=== PATIENT | male | born 1955 | race Caucasian/White ===

== ENCOUNTER 2018-12-07 17:24 | Inpatient (IN) ==
[2018-12-07] MEDS ORDERED: LASIX IV ONE (19:31)
[2018-12-07 19:51] LABS: BASO# 0.02 X1000 (0.0-0.2); BASO% 0.1 % (0.0-0.8); EOS# 0.05 X1000 (0.0-0.7); EOS% 0.2 % (0.0-10.0); HEMATOCRIT 30.4 % (42.0-52.0); HEMOGLOBIN 9.8 g/dL (14.0-18.0); IMM GRAN% 0.4 % (0.0-0.5); LYMPH# 1.17 X1000 (1.2-3.4); LYMPH% 4.7 % (20.5-51.1); MCHC 32.2 g/dL (33-37); MCV 96.2 FL (81-99); MONO# 1.24 X1000 (0.11-0.59); MPV 10.2 FL (7.4-10.4); NEUT# 22.12 X1000 (1.4-6.5); NEUT% 89.6 % (42.2-75.2); PLT 233 X1000 (130-400); RBC 3.16 XMIL (4.7-6.1); RDW 12.7 % (11.5-14.5)
--- NOTE | 2018-12-07 19:54 | Diag Imaging Result Doc PS360 ---
EXAM: CHEST-PORTABLE HISTORY: sob TECHNIQUE: Portable chest single view COMPARISON: 08/27/2017 FINDINGS: The lungs are well expanded. The heart is mildly prominent. There is a left-sided pacemaker. The vessels are not distended. There are no infiltrates. No effusion identified. IMPRESSION: Stable chest Electronically signed by Albert Darnell 12/07/2018 7:51 PM
[2018-12-07 19:56] LABS: INR 1.68; PROTIME 21.1 Seconds (11.0-16.0)
[2018-12-07] MEDS ORDERED: VANCOMYCIN 1 GM/NS 1 GM/250 ML IVPB IV ONE (20:16)
[2018-12-07 20:22] LABS: ALB/GLOB RATIO 1.2; ALBUMIN 3.3 g/dL (3.5-5.0); CALCIUM 8.8 mg/dL (8.8-10.2); CREATININE 2.6 mg/dL (0.7-1.2); POTASSIUM 4.7 mmol/L (3.5-5.1); TOTAL BILIRUBIN 0.68 mg/dL (0.20-1.00); TOTAL PROTEIN 6.1 g/dL (6.3-8.3)
[2018-12-07 20:23] LABS: URINE SOURCE CLEAN CATCH
[2018-12-07 20:40] LABS: BILIRUBIN URINE NEGATIVE (NEGATIVE); BLOOD URINE NEGATIVE (NEGATIVE); COLOR YELLOW; GLUCOSE URINE NEGATIVE (NEGATIVE); KETONE URINE NEGATIVE (NEGATIVE); LEUKOCYTES URINE NEGATIVE (NEGATIVE); NITRITE URINE NEGATIVE (NEGATIVE); PROTEIN URINE NEGATIVE (NEGATIVE); SP GRAVITY URINE 1.002; TURBIDITY URINE CLEAR (CLEAR); UROBILINOGEN URINE 2 mg/dL (NORMAL)
[2018-12-07 20:42] LABS: UR EPITHELIAL CELLS <10 /HPF (<10); URINE BACTERIA NEGATIVE /HPF; URINE RBC <10 /HPF (<10); URINE WBC <10 /HPF (<10)
[2018-12-07] MEDS ORDERED: D50W SYRINGE ONE (21:03)
[2018-12-07] MEDS ORDERED: D50W SYRINGE IV ONE (21:15)
[2018-12-07] MEDS ORDERED: D50W 500 ML IV SCH (21:15)
--- NOTE | 2018-12-07 22:40 | HISTORY AND PHYSICAL ---
PRIMARY CARE PHYSICIAN: Dr. Daniel Nelson. CHIEF COMPLAINT: Shortness of breath for 2 days. HISTORY OF PRESENTING ILLNESS: A 63-year-old morbidly obese male with a history of coronary disease, chronic kidney disease stage 3, diabetes mellitus type 2, hypertension, COPD and sleep apnea, presented to emergency department with 2 days history of worsening shortness of breath. The patient states that he was having trouble catching his breath. Patient also admits to taking some antibiotics earlier in the week for some sinus congestion. However he states that he did not have any improvement. He was evaluated in the emergency department. He is found to be in heart failure and due to his presenting symptoms, he will need admission for further management. The patient received IV diuresis with Lasix in the ED and he had some improvement. At time of my examination, he had denied any headache, fever, chills, chest pain, hemoptysis, melena, but complained of weight gain about 8 to 10 pounds and shortness of breath. PAST MEDICAL HISTORY: Includes coronary artery disease, chronic kidney disease stage 3, diabetes mellitus type 2, hypertension, hyperlipidemia, COPD, sleep apnea. PAST SURGICAL HISTORY: Coronary stent pacemaker, pericardial window, right shoulder surgery. ALLERGIES: Penicillin, erythromycin, gabapentin, codeine. CURRENT MEDICATIONS: Include Xanax 0.5 mg p.o. daily, Eliquis 5 mg p.o. b.i.d., aspirin 81 mg p.o. daily, baclofen 10 mg p.o. t.i.d., Brilinta 90 mg p.o. b.i.d., carvedilol 12.5 mg b.i.d., Uloric 40 mg p.o. daily, Lasix 80 mg p.o. b.i.d., Tresiba FlexTouch insulin 200 units subcu daily, Humalog sliding scale, levothyroxine 175 mcg p.o. daily, Linzess 145 mcg p.o. daily, lisinopril 5 mg p.o. daily, simvastatin 40 mg p.o. at bedtime, Viibryd 20 mg p.o. daily. SOCIAL HISTORY: No history of smoking, alcohol or illicit drug use. FAMILY HISTORY: Positive for coronary disease in mother and father. REVIEW OF SYSTEMS: Fourteen point review of system is as in HPI. Other systems negative. PHYSICAL EXAMINATION: GENERAL: Cooperative, friendly obese male. He is resting more comfortably now. VITAL SIGNS: Temperature 98.5 degrees, pulse 90, respiration 18, blood pressure 143/83, saturating 94%. HEENT: Atraumatic, normocephalic. Extraocular movements intact. NECK: No masses. CHEST: Bibasilar rales. CARDIOVASCULAR: Regular rate and rhythm. ABDOMEN: Soft, obese, positive bowel sounds. EXTREMITIES: There is +2 edema. NEUROLOGIC: He is awake, alert, oriented x3. : No bladder distention. SKIN: Warm. LABORATORIES AND STUDIES: ProBNP 9698. WBCs 24.70, hemoglobin 9.8, hematocrit 30.4, platelets 233,000. ASSESSMENT: 63-year-old obese male with a history of coronary disease, chronic kidney disease stage 3, diabetes mellitus type 2, hypertension, who had presented to emergency department with 2 days history of worsening shortness of breath. He was evaluated in the emergency department. He was found to be in heart failure. He received diuresis. He had some improvement. However, he will need admission for further management. 1. Acute congestive heart failure exacerbation. 2. Coronary artery disease. 3. Leukocytosis. 4. Diabetes mellitus type 2. 5. Hypertension. 6. Chronic obstructive pulmonary disease. PLAN: 1. We will admit patient to [facility]. 2. Continue with gentle diuresis with Lasix. 3. Consult Cardiology. 4. We will check blood cultures. Start patient on empiric antibiotics. 5. Put patient on glycemic protocol with sliding scale insulin regimen. 6. We will monitor blood pressure closely. Resume antihypertensive agent. 7. Continue with DuoNeb p.r.n. 8. Put patient on DVT prophylaxis with heparin. 9. We will continue to follow and reassess and make further recommendation based on patient's clinical course. cc: Vernon Jung MD
--- NOTE | 2018-12-07 22:59 | PROVIDER DOCUMENTATION ---
This chart was entered by Manjit Garcia Scribe, acting as scribe for Melissa Amador MD. HPI-Respiratory General - General Chief Complaint: Shortness of Breath Stated Complaint: CHEST TIGHTNESS,CANT PEE,CHF Time Seen by Provider: 12/07/18 19:01 Source: patient Allergies/Adverse Reactions: Patient Allergies Allergy/AdvReac Type Severity Reaction Status Date / Time cefaclor [From Ceclor] Allergy Severe ABDOMINAL Verified 08/27/17 12:15 PAIN Penicillins Allergy Severe ANAPHYLAXIS Verified 08/27/17 12:15 erythromycin base Allergy Mild NAUSEA/VOMI Verified 08/27/17 12:15 [Erythromycin Base] TING gabapentin [From Neurontin] AdvReac Severe ITCHING Verified 08/27/17 12:15 codeine [Codeine] AdvReac Intermediate NAUSEA/VOMI Verified 08/27/17 12:15 TING Home Medications: Home Medication List Medication Instructions Recorded Confirmed Last Taken Type Alprazolam [Xanax] 0.5 mg PO PRN PRN 07/12/12 12/07/18 02/15/16 History Febuxostat [Uloric] 40 mg PO QAM 07/12/12 12/07/18 02/15/16 History Levothyroxine [Synthroid] 175 microgm PO DAILY 07/12/12 12/07/18 02/15/16 History Nitroglycerin [Nitroquick] 0.4 mg SL ORDERED PRN 07/12/12 12/07/18 Unknown History Cetirizine [Zyrtec] 10 mg PO DAILY #0 tablet 10/15/13 12/07/18 02/15/16 Rx Cholecalciferol (Vitamin D3) 1,000 unit PO DAILY 06/21/14 12/07/18 02/15/16 History [Vitamin D3] Linaclotide [Linzess] 145 mcg PO PRN PRN 06/21/14 12/07/18 02/15/16 History Apixaban [Eliquis] 5 mg PO BID 08/03/14 12/07/18 02/15/16 History Darbepoetin Abhijit in Polysorbat 25 mcg IJ Q30D PRN 08/03/14 12/07/18 02/16/14 09:00 History [Aranesp] Furosemide [Lasix] 80 mg PO BID 02/15/16 12/07/18 02/15/16 History Carvedilol [Coreg] 12.5 mg PO BID 03/19/16 12/07/18 Unknown History Aspirin EC 81 mg PO DAILY 08/27/17 12/07/18 Unknown History Baclofen 10 mg PO TID 08/27/17 12/07/18 Unknown History Brillinta 90 mg PO BID 08/27/17 12/07/18 Unknown History Insulin Degludec [Tresiba 200 units SQ DAILY 08/27/17 12/07/18 Unknown History Flextouch U-200] Insulin Lispro [Humalog] 3 mg SQ DIRECTED 08/27/17 12/07/18 Unknown History Lisinopril 5 mg PO DAILY 08/27/17 12/07/18 Unknown History SIMVAstatin [Zocor] 40 mg PO QHS 08/27/17 12/07/18 Unknown History Vilazodone HCl [Viibryd] 20 mg PO DAILY 08/27/17 12/07/18 Unknown History Potassium Chloride E.r. [Klor-Con] 40 meq PO DAILY 12/07/18 12/07/18 Unknown History - History of Present Illness-Resp Nature of Presenting Problem: Pt is a 63 y/o M presents to the ED with SOB for a couple of days with a several pounds of weight gain. He says it is progressively getting worse and it is worse with exertion. Pt reports he takes Lasix daily and still has edema and swelling. Quality of Pain: reports: dull Severity in ED: reports: moderate Onset/Duration: reports: 3 days ago Timing: reports: still present Cough Quality/Degree: reports: no cough Current Respiratory Medication Therapy: Initiated none Modifying Factors: improves with: exertion Associated Symptoms: reports: shortness of breath. denies: cough, facial pain, fever/chills Review of Systems - Adult - REVIEW OF SYSTEMS - ADULT Constitutional: denies: chills, fever Eyes: reports: no symptoms reported Ears, Nose, Mouth & Throat: reports: no symptoms reported Cardiovascular: reports: edema. denies: chest pain, palpitations Respiratory: reports: shortness of breath. denies: cough Gastrointestinal: denies: abdominal pain, nausea, vomiting Genitourinary: denies: dysuria, frequency Musculoskeletal: denies: back pain, neck pain Integumentary: reports: no symptoms reported Neurological: denies: dizziness/vertigo, headache/migraines Psychiatric: reports: no symptoms reported Endocrine: denies: excessive sweating, increased thirst, polyuria Hematologic/Lymphatic: reports: no symptoms reported Allergic/Immunologic: reports: no symptoms reported All Other Systems: Reviewed and Negative Past History - Adult - PAST MEDICAL HISTORY-ADULT Review of Records: reports: Old Records Reviewed, Nursing Assessment Review, Medications Reviewed Major Childhood Illnesses: reports: denies history Cardiovascular: reports: cardiac disease, CHF, HTN, [place], pacemaker Respiratory: reports: COPD, sleep apnea Genitourinary: reports: ESRD, kidney disease Endocrine/Immune: reports: Diabetes, thyroid disorder - PRIOR SURGERIES/PROCEDURES Surgical/Procedure History: reports: appendectomy, cardiac stent, orthopedic (extremity) - IMMUNIZATION STATUS Childhood Immunizations: See Nurse Assessment Flu Vaccine: See Nurse Assessment - FAMILY HISTORY Family History: reviewed, not pertinent - SOCIAL HISTORY Smoking: non-smoker Living Situation: family Physical Exam-General - PHYSICAL EXAM-ADULT Initial Vital Signs Reviewed: Yes - CONSTITUTIONAL General Appearance: appears well, alert, obese - EYES Eyes: PERRL/EOMI, pink conjunctivae - HEAD, EARS, NOSE, MOUTH & THROAT HENMT: moist mucous membranes, TMs normal, pharynx normal - NECK Neck: non-tender, full range of motion, supple, normal inspection - RESPIRATORY Respiratory: no pleuratic chest pain, no respiratory distress, no accessory muscle use, decreased breath sounds (more decreased oin the left) - CARDIOVASCULAR Cardiovascular: normal peripheral pulses, regular rate, rhythm - GASTROINTESTINAL (ABDOMEN) Abdominal Exam: non tender, soft - MUSCULOSKELETAL Back Exam: normal inspection, no CVA tenderness, no vertebral tenderness Extremity: normal range of motion, non-tender, pedal edema (2-3+) - SKIN Integumentary: normal color, normal turgor, warm/dry - NEUROLOGIC Neurologic: grossly normal, no motor/sensory deficits - PSYCHIATRIC Psych/Mental Status: normal mood/affect, normal thought content, normal thought process, oriented x 3 Progress - PLAN OF CARE/RESULTS Progress/Plan/Lab Results: Vital Signs - 8 hr 12/07/18 17:36 12/07/18 18:58 12/07/18 19:02 Temperature 98.5 F Pulse Rate 90 76 77 Respiratory Rate 18 28 H 21 Blood Pressure 143/83 117/70 125/72 O2 Sat by Pulse Oximetry 94 L 98 98 12/07/18 19:33 12/07/18 20:02 12/07/18 20:32 Temperature Pulse Rate 75 72 77 Respiratory Rate 27 H 28 H 29 H Blood Pressure 165/85 154/76 140/73 O2 Sat by Pulse Oximetry 100 98 97 12/07/18 21:03 12/07/18 21:13 Temperature 98.3 F Pulse Rate 76 Respiratory Rate 26 H Blood Pressure 174/96 O2 Sat by Pulse Oximetry 100 Laboratory Results - last 24 hr 12/07/18 12/07/18 12/07/18 19:25 19:29 19:29 WBC 24.70 H RBC 3.16 L Hgb 9.8 L Hct 30.4 L MCV 96.2 MCH 31.0 MCHC 32.2 L RDW Std Deviation 12.7 Plt Count 233 MPV 10.2 Immature Gran % (Auto) 0.4 Neut % (Auto) 89.6 H Lymph % (Auto) 4.7 L [place] % (Auto) 5.0 Eos % (Auto) 0.2 Baso % (Auto) 0.1 Immature Gran # (Auto) 0.10 H Neut # (Auto) 22.12 H Lymph # (Auto) 1.17 L [place] # (Auto) 1.24 H Eos # (Auto) 0.05 Baso # (Auto) 0.02 PT INR PTT (Actin FS) Sodium 138 Potassium 4.7 Chloride 100 Carbon Dioxide 25 Anion Gap 13 BUN 55 H Creatinine 2.6 H Estimated GFR/1.73 m2 25 BUN/Creatinine Ratio 21 Glucose 65 L POC Glucose Calculated Osmolality 289 Calcium 8.8 Total Bilirubin 0.68 AST 17 ALT 17 Alkaline Phosphatase 95 Creatine Kinase 178 Troponin T Rrg-[id number] Pept Total Protein 6.1 L Albumin 3.3 L Globulin 2.8 Albumin/Globulin Ratio 1.2 Plasma Lactate Urine Source CLEAN CATCH Urine Color YELLOW Urine Turbidity CLEAR Urine pH 6.0 Ur Specific [place] 1.002 Urine Protein NEGATIVE Ur Glucose (Stick) NEGATIVE Ur Ketones (Stick) NEGATIVE Urine Blood NEGATIVE Urine Nitrite NEGATIVE Urine Bilirubin NEGATIVE Urobilinogen Dipstick 2 A Urine Leukocytes NEGATIVE Urine WBC (Auto) <10 Urine RBC (Auto) <10 U Epithel Cells (Auto) <10 Urine Bacteria (Auto) NEGATIVE 12/07/18 12/07/18 12/07/18 19:29 19:29 19:29 WBC RBC Hgb Hct MCV MCH MCHC RDW Std Deviation Plt Count MPV Immature Gran % (Auto) Neut % (Auto) Lymph % (Auto) [place] % (Auto) Eos % (Auto) Baso % (Auto) Immature Gran # (Auto) Neut # (Auto) Lymph # (Auto) [place] # (Auto) Eos # (Auto) Baso # (Auto) PT 21.1 H INR 1.68 PTT (Actin FS) 40.0 Sodium Potassium Chloride Carbon Dioxide Anion Gap BUN Creatinine Estimated GFR/1.73 m2 BUN/Creatinine Ratio Glucose POC Glucose Calculated Osmolality Calcium Total Bilirubin AST ALT Alkaline Phosphatase Creatine Kinase Troponin T 0.063 Qtv-K-Zyycfbvjrmd Pept 9698 H Total Protein Albumin Globulin Albumin/Globulin Ratio Plasma Lactate Urine Source Urine Color Urine Turbidity Urine pH Ur Specific [place] Urine Protein Ur Glucose (Stick) Ur Ketones (Stick) Urine Blood Urine Nitrite Urine Bilirubin Urobilinogen Dipstick Urine Leukocytes Urine WBC (Auto) Urine RBC (Auto) U Epithel Cells (Auto) Urine Bacteria (Auto) 12/07/18 12/07/18 12/07/18 20:37 20:39 21:01 WBC RBC Hgb Hct MCV MCH MCHC RDW Std Deviation Plt Count MPV Immature Gran % (Auto) Neut % (Auto) Lymph % (Auto) [place] % (Auto) Eos % (Auto) Baso % (Auto) Immature Gran # (Auto) Neut # (Auto) Lymph # (Auto) [place] # (Auto) Eos # (Auto) Baso # (Auto) PT INR PTT (Actin FS) Sodium Potassium Chloride Carbon Dioxide Anion Gap BUN Creatinine Estimated GFR/1.73 m2 BUN/Creatinine Ratio Glucose POC Glucose 56 L D 61 L Calculated Osmolality Calcium Total Bilirubin AST ALT Alkaline Phosphatase Creatine Kinase Troponin T Ruq-V-Vkxcatjfvls Pept Total Protein Albumin Globulin Albumin/Globulin Ratio Plasma Lactate 1.3 Urine Source Urine Color Urine Turbidity Urine pH Ur Specific [place] Urine Protein Ur Glucose (Stick) Ur Ketones (Stick) Urine Blood Urine Nitrite Urine Bilirubin Urobilinogen Dipstick Urine Leukocytes Urine WBC (Auto) Urine RBC (Auto) U Epithel Cells (Auto) Urine Bacteria (Auto) 12/07/18 21:17 WBC RBC Hgb Hct MCV MCH MCHC RDW Std Deviation Plt Count MPV Immature Gran % (Auto) Neut % (Auto) Lymph % (Auto) [place] % (Auto) Eos % (Auto) Baso % (Auto) Immature Gran # (Auto) Neut # (Auto) Lymph # (Auto) [place] # (Auto) Eos # (Auto) Baso # (Auto) PT INR PTT (Actin FS) Sodium Potassium Chloride Carbon Dioxide Anion Gap BUN Creatinine Estimated GFR/1.73 m2 BUN/Creatinine Ratio Glucose POC Glucose 145 H D Calculated Osmolality Calcium Total Bilirubin AST ALT Alkaline Phosphatase Creatine Kinase Troponin T Nxo-H-Htajqimcjqk Pept Total Protein Albumin Globulin Albumin/Globulin Ratio Plasma Lactate Urine Source Urine Color Urine Turbidity Urine pH Ur Specific [place] Urine Protein Ur Glucose (Stick) Ur Ketones (Stick) Urine Blood Urine Nitrite Urine Bilirubin Urobilinogen Dipstick Urine Leukocytes Urine WBC (Auto) Urine RBC (Auto) U Epithel Cells (Auto) Urine Bacteria (Auto) Orders Category Date Time Status Cardiac Monitoring DIRECTED Care 12/07/18 19:32 Active Cardiac Monitoring DIRECTED Care 12/07/18 20:11 Active IV Insertion ORDERED Care 12/07/18 20:11 Completed Notify MD of + Sepsis Screen NOW Care 12/07/18 20:11 Active Notify Physician As Ordered Care 12/07/18 20:11 Active Oxygen Therapy- ED Nursing DIRECTED Care 12/07/18 19:32 Active Saline Loc NOW Care 12/07/18 19:32 Active cxr [CHEST-PORTABLE] [RAD] Stat Exams 12/07/18 19:30 Completed BLOOD CULTURE [BLDCUL] Stat Lab 12/07/18 20:39 Results CBC WITH ELECTRONIC DIFF [HEME] Stat Lab 12/07/18 19:29 Completed CK PROFILE [SP CHEM] Stat Lab 12/07/18 19:29 Completed COMPREHENSIVE METABOLIC PANEL [CHEM] Stat Lab 12/07/18 19:29 Completed LACTATE, PLASMA [CHEM] Lab 12/07/18 20:39 Completed LACTATE, PLASMA [CHEM] Lab 12/07/18 23:15 Uncollected LACTATE, PLASMA [CHEM] Lab 12/08/18 02:15 Uncollected PRO B-NATRIURETIC PEPTIDE Stat Lab 12/07/18 19:29 Completed PROTIME WITH INR [COAG] Stat Lab 12/07/18 19:29 Completed PTT [COAG] Stat Lab 12/07/18 19:29 Completed TROPONIN T Stat Lab 12/07/18 19:29 Completed URINALYSIS W/POSS RFLX CULT [URINALYSIS] Stat Lab 12/07/18 19:25 Completed Dextrose 50% Syringe [D50w Syringe] Med 12/07/18 21:03 Discontinued 50 ml .ROUTE .STK-MED ONE Dextrose 50% Syringe [D50w Syringe] Med 12/07/18 21:15 Discontinued 50 ml IV NOW ONE Furosemide [Lasix] Med 12/07/18 19:31 Discontinued 80 mg IV NOW ONE Vancomycin 1 gm/Ns Med 12/07/18 20:16 Discontinued 1 gm in 250 ml IV NOW CP/SOB/Palp >45 yrs of Age Stat Oth 12/07/18 19:31 Ordered Oxygen Device Stat Oth 12/07/18 20:11 Active EKG [EKG] Stat Ther 12/07/18 19:32 Ordered Transfer/Admit Order [TRANSFER] Routine Transfer 12/07/18 22:19 Ordered Result Diagrams: 12/07/18 19:29 12/07/18 19:29 - EKG 1 Time of EKG reading by physician:: 17:40 EKG Read and Signed by:: Virgilio Rivers EKG Interpretation (*Must complete 3 of following elements*): Abnormal Rate: 87 Rhythm: Wide QRS rhythm [place]: left Comments: Nonspecific intraventricular block - XRAY 1 XRAY Study: Chest Impression: Normal (EXAM: CHEST-PORTABLE HISTORY: sob TECHNIQUE: Portable chest single view COMPARISON: 08/27/2017 FINDINGS: The lungs are well expanded. The heart is mildly prominent. There is a left-sided pacemaker. The vessels are not distended. There are no infiltrates. No effusion identified. IMPRESSION: Stable chest Electronically signed by Albert Darnell 12/07/2018 7:51 PM) - CONSULTS/PCP/HOSPITALIST Notification #1 *Consult/PCP/Hospitalist*: randy molina Consult Disposition: Admit Departure - Departure Date of Disposition Decision: 12/07/18 Time of Disposition Decision: 22:58 DIAGNOSIS: Congestive heart failure, Dyspnea on exertion, Leukocytosis Disposition: ADMITTED INPATIENT 09 Certified Medical Emergency: Emergent Condition: Stable - Critical Care Note This patient required my direct & personal management of CC.: No Attestation - Physician/ JAMEL Attestation Patient care was provided by Advanced Practice Provider:: No The physician spent face to face time with patient:: Yes Advanced Practice Provider documentation review:: Supervising physician onsite and consulted in the evaluation and care of this patient. The physician did have a face to face encounter with the patient. This chart was documented by the indicated scribe, (Manjit Garcia Scribe) and accurately reflects the services I performed and decisions made by me, Melissa Amador MD, as attested by the provider's signature.
[2018-12-08] MEDS ORDERED: LINZESS PO PRN (02:36)
[2018-12-08] MEDS ORDERED: HEPARIN SUBQ SCH (02:36)
[2018-12-08] MEDS ORDERED: XANAX PO PRN (02:36)
[2018-12-08] MEDS: LEVAQUIN 500 MG/D5W 500 MG/100 ML IVPB IV SCH (02:54)
[2018-12-08] MEDS ORDERED: XANAX PO SCH (03:15)
[2018-12-08] MEDS: LASIX IV SCH ×2 (03:20→19:04)
[2018-12-08] MEDS: XANAX PO PRN ×2 (03:21→11:48)
[2018-12-08] MEDS ORDERED: TYLENOL ONE (05:49)
[2018-12-08] MEDS: TYLENOL PO PRN (06:00)
[2018-12-08 06:28] LABS: BASO# 0.01 X1000 (0.0-0.2); EOS# 0.02 X1000 (0.0-0.7); EOS% 0.1 % (0.0-10.0); HEMATOCRIT 30.2 % (42.0-52.0); HEMOGLOBIN 9.8 g/dL (14.0-18.0); IMM GRAN# 0.09 X1000 (0.0-0.04); IMM GRAN% 0.4 % (0.0-0.5); LYMPH# 1.21 X1000 (1.2-3.4); LYMPH% 4.8 % (20.5-51.1); MCH 31.3 PG (27-31); MCHC 32.5 g/dL (33-37); MCV 96.5 FL (81-99); MONO# 1.26 X1000 (0.11-0.59); MPV 10.2 FL (7.4-10.4); NEUT# 22.69 X1000 (1.4-6.5); NEUT% 89.7 % (42.2-75.2); PLT 242 X1000 (130-400); RBC 3.13 XMIL (4.7-6.1); RDW 12.7 % (11.5-14.5); WBC 25.28 X1000 (4.8-10.8)
[2018-12-08 06:46] LABS: BANDS 6 % (0-1); EOS 2 % (1-10); LYMPHS 2 % (21-51); SEGS 90 % (42-75)
[2018-12-08 06:55] LABS: CALCIUM 8.9 mg/dL (8.8-10.2); CREATININE 2.3 mg/dL (0.7-1.2); POTASSIUM 4.2 mmol/L (3.5-5.1)
[2018-12-08] MEDS: HUMULIN R SUBQ SCH ×4 (06:55→20:59)
[2018-12-08] MEDS ORDERED: SYNTHROID PO SCH (07:00)
--- NOTE | 2018-12-08 07:27 | EKG Report ---
Test Performed on : 12/07/2018 5:40:41 PM Test Reason : sob Blood Pressure : / mmHG Vent. Rate : 087 BPM Atrial Rate : 094 BPM P-R Int : 000 ms QRS Dur : 172 ms QT Int : 440 ms P-R-T Axes : 000 -77 104 degrees QTc Int : 529 ms Wide QRS rhythm. Left axis deviation Nonspecific intraventricular block Inferior infarct , age undetermined Anterolateral infarct , age undetermined Abnormal ECG When compared with ECG of 27-AUG-2017 12:26, No significant change was found Unconfirmed Result
[2018-12-08] MEDS ORDERED: ELIQUIS PO SCH (09:00)
[2018-12-08] MEDS: VITAMIN D PO SCH (10:20)
[2018-12-08] MEDS: COREG PO SCH ×2 (10:20→20:59)
[2018-12-08] MEDS: VIIBRYD PO SCH (10:20)
[2018-12-08] MEDS: ASPIRIN EC PO SCH (10:20)
[2018-12-08] MEDS: ZYRTEC PO SCH (10:20)
[2018-12-08] MEDS: PRINIVIL PO SCH (10:20)
[2018-12-08] MEDS: BRILINTA PO SCH ×2 (10:20→20:59)
[2018-12-08] MEDS: ULORIC PO SCH (10:20)
[2018-12-08] MEDS: NORCO-7.5 PO PRN (11:48)
--- NOTE | 2018-12-08 14:03 | Diag Imaging Result Doc PS360 ---
EXAM: CT ABDOMEN/PELVIS W/O CONTRAST HISTORY: right groin/buttock pain, endurated swelling TECHNIQUE: CT abdomen and pelvis without contrast COMPARISON: None. FINDINGS: There is fatty infiltration of the liver. No focal hepatic abnormality identified on this noncontrasted exam. The gallbladder is contracted. No calcified stones. Normal spleen, pancreas, and adrenal glands. There is a fat filled anterior abdominal wall hernia anterior to the liver. No renal stones. No hydronephrosis. No aortic aneurysm. Prominent atherosclerosis. No bowel obstruction. No inflammation about the cecum. No abscess. No ascites. Urinary bladder is moderately distended and is normal. The prostate is not enlarged. Fat filled inguinal hernias. No bowel loops within these. No fluid collection in the buttocks. Buttocks are symmetric. No enlarged inguinal lymph nodes. IMPRESSION: 1.Fatty infiltration of the liver 2.Fat filled upper anterior abdominal wall hernia 3.Small fat filled inguinal hernias 4.Prominent atherosclerosis This exam was performed using automated exposure control, adjustment of mA or kV according to patient size, and/or use of iterative reconstruction technique. Electronically signed by Albert Darnell 12/08/2018 2:01 PM
--- NOTE | 2018-12-08 14:22 | CARDIOLOGY CONSULTATION ---
DATE: 12/08/2018 HISTORY OF PRESENT ILLNESS: Mr. Smith is a 63-year-old, gentleman who comes with complaints of increasing shortness of breath, has known coronary artery disease, has elevated white count, and has indurated swelling in his right groin. He has chronic kidney disease, diabetes, hypertension, and has had multiple coronary interventions. Denies chest pain. He has noticed some congestion in his sinuses. Also has noticed increasing tenderness in his right groin/buttock area associated with some in duration. This has been gradually worsening to the point that he cannot place his hand there. Does not complain of having any obvious fevers or chills. There is no dizziness or syncope. He came to the hospital given his increasing shortness of breath and has had a weight gain of at least 8 pounds. REVIEW OF SYSTEMS: GI: There is no history of nausea, vomiting, diarrhea. There is no history of hematemesis or melena. Central nervous system: No focal weakness to suggest a CVA or TIA. Genitourinary: As above. Endocrine system: Stable. PAST MEDICAL HISTORY: 1. Chronic atrial fibrillation. 2. Coronary artery disease with a drug-eluting stent to ramus intermedius on 09/20/2004. 3. Drug-eluting stent x2 to left anterior descending artery on 10/14/2006. 4. Drug-eluting stent to the left anterior descending artery and ramus on 03/26/2016. 5. On 08/20/2016 he also had PTCA to the LAD and ramus. His last cardiac catheterization was 08/20/2016 where he underwent successful PTCA to the hazy restenoses of a mid left anterior descending artery. In addition, he had a PTCA to the distal edge of the mid ramus intermedius stent with inability to advance balloon through the placed stent. His left main artery had distal 60% disease, left anterior descending artery had long stents, area of stenting in the midportion with haziness as described above. The diagonal is a 2 mm vessel with proximal disease. Ramus has stent in the midportion. Ramus intermedius bifurcates with small upper branch. Lower branch has a long segment of stenting in its upper half of the mid ramus intermedius. There is a 90% hazy restenosis in the edge, circumflex eccentric 80% proximal disease. RCA is the largest vessel, 30% mid, PDA 30% ostial, posterolateral had 60%P to 70% stenosis in proximal segment. Patient was evaluated for coronary artery bypass grafting prior to the interventions in 2016, however, he was deemed not a surgical candidate given his multiple other issues. 6. History of myocardial infarction. 7. Anticoagulation therapy. 8. Sick sinus syndrome, status post permanent pacemaker implantation and AV node ablation in the past. Patient has a [employer] implanted device 2016. 9. Diabetes. 10. Statin intolerance. 11. History of pericardial effusion and pericardial window in the past. 12. Chronic kidney disease. 13. Obstructive sleep apnea. 14. Morbid obesity. 15. He is on triple anticoagulation therapy. 16. BMI of 45 to 49. 17. Hypothyroidism. 18. Chronic leg pain. CURRENT MEDICATIONS: Xanax 0.5 mg daily, Eliquis 5 mg p.o. b.i.d., aspirin 81 mg a day, baclofen 10 p.o. t.i.d., Brilinta 90 mg p.o. b.i.d., Coreg 12.5 b.i.d., Uloric, Lasix 80 mg p.o. b.i.d., Tresiba insulin 200 units subcutaneously daily, Humalog sliding scale, levothyroxine 175, Linzess 125 mg daily, lisinopril 5, simvastatin 40, Viibryd 20 mg daily. SOCIAL HISTORY: There is no history of smoking, alcohol abuse, or illicit drug use. FAMILY HISTORY: Positive family history of coronary artery disease. PHYSICAL EXAMINATION: Vital Signs: Blood pressure was 140/83. Neck: Jugular venous pressure was normal. Cardiovascular: First and second heart sounds were heard. Respiratory System: Distant breath sounds with inspiratory crepitations. Abdomen: Obese and soft. Skin: Examination of his groin revealed tenderness around the groin and right gluteal fold. There was induration noted. Central nervous system: Alert and oriented. Extremities: Examination of his extremities revealed mild pedal edema. ASSESSMENT AND PLAN: Mr. Carlos Smith is a 63-year-old gentleman with history of myocardial infarction, multiple coronary interventions, chronic atrial fibrillation status post atrioventricular node ablation and permanent pacemaker implantation, morbid obesity, diabetes, hypertension who is admitted with increasing shortness of breath with increasing weight gain of 8 pounds. He also has noticed induration and swelling in his right groin associated with some sinus infection. 1. The patient has induration and swelling in his groin. We will consult the wound nurse and we discussed with her. We will plan for a CT scan of the abdomen and pelvis to see the extent of the induration and abscess likely as he has an elevated white count of 25, pending which appropriate consultation to Urology or General Surgery will be made. Blood cultures are pending. 2. From a cardiac standpoint, increasing shortness of breath with pedal edema. He is started on IV Lasix 40 mg twice daily. We will continue that. 3. He has had multiple coronary interventions. Needs long-term indefinite dual antiplatelet therapy, however, he is also on anticoagulation given his chronic atrial fibrillation status post AV node ablation, and he is on triple regimen. We will continue that. At the moment and during this hospitalization, we will hold the Eliquis should he need any drainage for the likely abscess he may have in his groin. He does not have any bleeding issues. 4. Chronic kidney disease. Renal function stable. 5. Chest x-ray was unremarkable. 6. Diabetes. Continue with his current home medications. 7. Hypertension. Continue with home medications. 8. He has hypothyroidism and is on levothyroxine. I have not made any changes to his medication. 9. Hypercholesterolemia. He is on simvastatin. Would recommend continuing medication. Thank you for the consult. We will follow hospital course. cc: Uriah Guaman MD
--- NOTE | 2018-12-08 15:47 | PROGRESS NOTE ---
DATE: 12/08/2018 SUBJECTIVE: The patient is resting in bed. Not in any obvious distress. OBJECTIVE: Vital signs: Temperature 97.9 degrees, pulse 77, respiratory rate is 15, blood pressure 140/63, and O2 saturation is 98%. HEENT: Atraumatic and normocephalic. Cardiovascular: S1, S2. Respiratory: Evidence of good entry bilaterally. Abdomen: Obese and nontender. No masses felt. Extremities: 2+ edema in the lower extremities. Central nervous system: No obvious focal deficit noted. LABORATORY: WBC 25.3, hematocrit is 30.2 with a platelet count of 242,000. Sodium is 137, potassium 4.2, chloride is 142, bicarb is 21, BUN is 57 and creatinine is 2.3. TSH level is 0.01. ASSESSMENT AND PLAN: 1. Acute congestive heart failure. We will monitor the patient's I's and O's as well as daily weights. Continue diuretics. The patient is being followed up by the cardiology team. 2. Chronic atrial fibrillation. The patient's heart rate currently controlled. He is currently on beta-cayden as well as Brilinta. Cardiology team is following. 3. Coronary artery disease. Asymptomatic. Continue aspirin, beta cayden, as well as statin. 4. Diabetes mellitus. Continue blood sugar medications as well as sliding scale insulin. 5. COPD. Maintain patient on nebulized bronchodilators. 6. Suppressed TSH level. I suspect the patient may be on high doses of levothyroxine. At this time, we will adjust levothyroxine dose downward. 7. Hypertension. Continue current antihypertensive medications. 8. Hyperlipidemia. Continue simvastatin. cc: Francisco Kaiser MD
[2018-12-08] MEDS: DUONEB (A & A) INH SCH ×2 (19:31→22:39)
[2018-12-08] MEDS: ZOCOR PO SCH (20:59)
[2018-12-09] MEDS: LASIX IV SCH ×2 (02:27→19:02)
[2018-12-09] MEDS: TYLENOL PO PRN (02:27)
[2018-12-09] MEDS: LEVAQUIN 500 MG/D5W 500 MG/100 ML IVPB IV SCH (02:27)
[2018-12-09] MEDS: DUONEB (A & A) INH SCH ×6 (02:49→22:46)
[2018-12-09] MEDS: HUMULIN R SUBQ SCH ×4 (06:31→21:03)
[2018-12-09] MEDS: SYNTHROID PO SCH (06:32)
[2018-12-09 07:39] LABS: CALCIUM 8.4 mg/dL (8.8-10.2); CREATININE 2.6 mg/dL (0.7-1.2); POTASSIUM 4.1 mmol/L (3.5-5.1)
--- NOTE | 2018-12-09 08:08 | EKG Report ---
Test Performed on : 12/09/2018 06:55:37 AM Test Reason : dyspnea, CAD Blood Pressure : / mmHG Vent. Rate : 082 BPM Atrial Rate : 085 BPM P-R Int : 000 ms QRS Dur : 184 ms QT Int : 476 ms P-R-T Axes : 000 -79 097 degrees QTc Int : 556 ms Sinus rhythm. with AV dissociation. and Wide QRS rhythm. Left axis deviation Nonspecific intraventricular block Inferior infarct , age undetermined Possible Anterolateral infarct , age undetermined Abnormal ECG When compared with ECG of 07-DEC-2018 17:40, (Unconfirmed) Sinus rhythm. is now with AV dissociation. Unconfirmed Result
[2018-12-09] MEDS: VITAMIN D PO SCH (09:44)
[2018-12-09] MEDS: ZYRTEC PO SCH (09:45)
[2018-12-09] MEDS: BRILINTA PO SCH ×2 (09:45→21:01)
[2018-12-09] MEDS: COREG PO SCH ×2 (09:45→21:01)
[2018-12-09] MEDS: ULORIC PO SCH (09:45)
[2018-12-09] MEDS: ASPIRIN EC PO SCH (09:46)
[2018-12-09] MEDS: PRINIVIL PO SCH (09:46)
[2018-12-09] MEDS: VIIBRYD PO SCH (11:35)
--- NOTE | 2018-12-09 12:34 | PROGRESS NOTE ---
DATE: 12/09/2018 SUBJECTIVE: Patient is resting comfortably in bed. Not in any obvious distress. OBJECTIVE: Vital Signs: Temperature 98.2 degrees, pulse is 80, respirations 20, blood pressure 128/71, oxygen saturation is 98%. HEENT: Atraumatic and normocephalic. Cardiovascular System: S1 and S2. Respiratory System: Has evidence of good air entry bilaterally. Abdomen: Soft, obese, nontender. No masses felt. Extremities: Have evidence of edema. Central Nervous System: No obvious focal deficits noted. Labs: Sodium is 143, potassium 4.1, chloride is 100, bicarb 24, BUN is 60, creatinine 2.6. ASSESSMENT AND PLAN: 1. Acute congestive heart failure. Monitor intakes and outputs, as well as daily weights. Continue diuretics. Cardiology following. 2. Chronic atrial fibrillation. Continue beta-cayden as well as Brilinta. Cardiology is following. 3. Coronary artery disease, asymptomatic. Continue aspirin and beta cayden as well as statin. 4. Diabetes mellitus. Continue blood sugar monitoring as well as sliding scale insulin. 5. Chronic obstructive pulmonary disease. Use nebulized bronchodilators. 6. Suppressed serum TSH. Levothyroxine dose adjusted downwards. 7. Hypertension. Continue current antihypertensive regimen. 8. Hyperlipidemia. Continue statin. cc: Francisco Kaiser MD
--- NOTE | 2018-12-09 15:22 | ECHO REPORT ---
ORDER DATE: 12/09/2018 ECHOCARDIOGRAPHIC MEASUREMENTS: Interventricular septum 1.0 cm. Left ventricular posterior wall 1.0 cm. Diastolic diameter 5.5 cm. Left atrium 4.5 cm. Aorta 3 cm. SUMMARY OF THE 2-DIMENSIONAL IMAGING: Technically suboptimal study. Very poor acoustic window. Pulmonic valve not well visualized. The aortic valve leaflets are trileaflet. Mitral valve was normal. There is mitral annular calcification. Tricuspid valve was normal. There is mild mitral regurgitation. Mild tricuspid regurgitation. Peak velocity across the tricuspid valve was 2.9 m/sec. Pulmonary artery systolic pressure of 43 mmHg. By Doppler studies, there is no aortic stenosis or regurgitation. Definity was used to assess left ventricular systolic function. Normal left ventricular cavity size. Estimated ejection fraction of 60% to 65%. There is no pericardial effusion or obvious intracardiac mass or thrombus seen. cc: MD Lois Sanchez PA
[2018-12-09] MEDS: NORCO-7.5 PO PRN (15:40)
[2018-12-09] MEDS: ZYVOX 600 MG/D5W 600 MG/300 ML IVPB IV SCH (16:13)
[2018-12-09 17:37] LABS: IRON SATURATION 10 %; TIBC 132 ug/dL; TOTAL IRON 13 ug/dL (53-167); UNBOUND IRON 119 ug/dL (112-346)
[2018-12-09 17:56] LABS: FERRITIN 329 ng/mL (30-400)
[2018-12-09] MEDS: AZACTAM 1 GM in NS 50 ML IV SCH (18:07)
--- NOTE | 2018-12-09 19:54 | GENERAL SURGERY CONSULTATION ---
DATE: 12/09/2018 HISTORY OF PRESENT ILLNESS: Mr. Smith is a 63-year-old gentleman admitted on 12/07/2018 with shortness of breath. He is noted to have a leukocytosis. There has been some swelling noted in his right scrotal area. I have been asked to see him about his right groin. PAST MEDICAL HISTORY: His past history is extensive and is documented in his H P, includes coronary disease, chronic kidney disease stage III, diabetes, hypertension, hyperlipidemia, COPD and sleep apnea. PAST SURGICAL HISTORY: Previous surgery includes coronary stent, pericardial window, right shoulder surgery. MEDICATIONS: Listed. ALLERGIES: Penicillin, erythromycin, gabapentin and codeine. SOCIAL HISTORY: Denies smoking, alcohol or illicit drug use. FAMILY HISTORY: Pertinent for coronary disease. REVIEW OF SYSTEMS: As noted above. PHYSICAL EXAMINATION: Vital signs: He is afebrile, heart rate 70, blood pressure 133/73. Neck: No cervical adenopathy. Respiratory: Bilateral breath sounds. Heart: Regular rate and rhythm. Abdomen: Soft. Genitourinary: He has no evidence of an inguinal hernia. No palpable adenopathy in the groin. He has a little erythema and tenderness and induration on the right side of his scrotum. ASSESSMENT: Possible soft tissue infection of the right scrotum that is early. This very well may respond appropriately to antibiotics and not require any incision and drainage. I think he is scheduled to be seen by the urologist. There is no evidence of hernia. cc: Virgilio Armendariz MD
--- NOTE | 2018-12-09 19:56 | INFECTIOUS DISEASE CONSULT REP ---
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 There is involvement of his scrotum and it may be also invading the perineum. The patient has multiple antibiotic allergies. The patient has recurrent episodes of sinusitis, and now he has a very serious infection. I am concerned that he may have an immunoglobulin deficiency. RECOMMENDATIONS: I agree with treating the patient with clindamycin and Zyvox. I have also added aztreonam, the dose of which has been modified because of the patient's renal failure. I have ordered immunoglobulin levels. I am going to get a bladder scan on the patient to see if he has going into urinary retention. I have consulted Dr. Gonzalez to see the patient also. DISCUSSION: The patient tells me in the last week his scrotum has become very swollen and painful. It is also erythematous. The patient feels like the swelling is spreading into his perineum. He also tells me that it is difficult for him to urinate and it is painful. He also has increasing leg edema. Laboratory studies thus far show a CBC with a white count of 25,280, hemoglobin 9.8, and platelet count 242,000. Creatinine is 2.6. GFR is 25. Urinalysis showed no white cells or bacteria. Blood cultures thus far are sterile. Chest x-ray shows clear lung hernandez. PAST MEDICAL HISTORY/REVIEW OF SYSTEMS: Eyes and ears: He can see and hear well. Neck: No stiffness. Respiratory: No cough or shortness of breath. Cardiac: No chest pain or palpitations. GI: No nausea, vomiting or diarrhea. Genitourinary: See present illness. Bones, joints muscles: No joint swelling or muscle aching. Neurologic: No recent loss of motor or sensory function. Integument: No rashes. PREVIOUS HOSPITALIZATIONS AND OPERATIONS: The patient has had a pericardial window performed. He has a left-sided pacemaker in place. He has had an appendectomy. He had what he told me was an operation on his testicle that removed veins from the testicle. He has had placement of coronary artery stents. He has had a cardiac ablation performed. MEDICAL DISEASES: Positive for diabetes mellitus, hypertension, leg neuropathy, atrial fibrillation, cardiac arrhythmias requiring ablation and pacemaker, hypothyroidism and hyperlipidemia. INFECTIOUS DISEASE HISTORY: The patient has recurrent sinusitis. He has also had urinary tract infection. FAMILY HISTORY: Positive for diabetes mellitus, hypertension, myocardial infarction, stroke and cancer. SOCIAL HISTORY[place] . He lives alone. He is disabled. ALLERGIES: He is allergic to cefaclor which was described as severe; the reaction was abdominal pain. He is allergic to penicillin; the reaction was described as severe and he had as a result of penicillin anaphylaxis. He has had nausea and vomiting after taking erythromycin. He has had adverse reaction to Neurontin, manifested by itching. He has had adverse reaction to codeine, manifested by nausea and vomiting. MEDICATIONS: Home medications on the patient include the following: Xanax, Eliquis, aspirin, Coreg, Zyrtec, Uloric, Lasix, insulin, Synthroid, Linzess, lisinopril, nitroglycerin, Zocor and vilazodone. PHYSICAL EXAMINATION: Vital signs: Temperature is 98.3 degrees, pulse 70, respirations 20, blood pressure 133/73. Generally, this is a morbidly obese, middle-aged male. He is in no acute distress. Head, eyes, ears, nose, and throat: He can hear my spoken words and see near objects. There is no drainage coming from his nose or ears. I do not see any white patches on his tongue. Neck: No pain with movement. Lungs clear to auscultation. Cardiovascular: Regular heart rate. Thorax: The patient has a pacemaker in the upper part of his chest. It is palpable. It is not tender and the skin is not erythematous. Abdomen is soft and nontender. Genitalia: The patient's scrotum is large, erythematous and tender. It appears the swelling is spreading into the perineum. Neurologic: The patient is alert. He can move his extremities. There is no tremor. He has decreased sensation in his legs. His memory as regarding his medical history was intact. ADDENDUM: The patient's residual urine was 243 ml. I ordered a Egan catheter. Thank you for the consult. cc: Dheeraj Nguyen MD [facility]ITAL[facility]
--- NOTE | 2018-12-09 20:18 | CONSULTATION ---
DATE OF CONSULTATION: 12/09/2018 PHYSICIAN REQUESTING CONSULT: Dheeraj Nguyen MD with Infectious Disease. REASON FOR CONSULT: Consultation for scrotal infection. HISTORY OF PRESENT ILLNESS: A 63-year-old male, with several medical comorbidities including notably diabetes mellitus, who was admitted on 12/07/2018 with shortness of breath. He was found to have to be in reportedly heart failure. He states that for the last 6 days, he has had discomfort in his scrotum as well as a "knot" at the base of the scrotum toward the perineal area. Given his morbid obesity, he was not able to examine his genitals well, but reports he did not see any discharge or drainage in the underwear. He denies fevers or chills. He denies similar occurrences in the past. PAST MEDICAL HISTORY: Morbid obesity, diabetes mellitus, hypertension, hyperlipidemia, COPD, obstructive sleep apnea, coronary artery disease, chronic kidney disease. PAST SURGICAL HISTORY: Percutaneous coronary intervention. Right shoulder surgery. Pacemaker placement. ALLERGIES: Penicillin, gabapentin, codeine and erythromycin. HOME MEDICATIONS: Xanax, aspirin, baclofen, Brilinta, carvedilol, Eliquis, Uloric, Lasix, Tresiba, levothyroxine, Linzess, lisinopril, simvastatin, Viibryd. FAMILY HISTORY: Negative for malignancies or urolithiasis. SOCIAL HISTORY: He denies tobacco, alcohol or illicit drug use currently. REVIEW OF SYSTEMS: Reviewed and 12 systems negative with exception to the HPI. PHYSICAL EXAMINATION: Vital Signs: T 98.3, P 70, BP 133/73. General: No acute distress. Obese male with a documented BMI 46.5. HEENT: Normocephalic, atraumatic. Cardiovascular: Regular rhythm. Pulmonary: Decreased bilateral breath sounds. Abdomen: Protuberant, nontender to palpation. Back: No CVA tenderness. : Penile skin edema and scrotal edema. He is not circumcised and has phimosis. His left testis is mildly tender to palpation, nonedematous. No masses appreciated. His right testis and epididymis are tender to palpation, firm, edematous, consistent with epididymal orchitis. His scrotal skin is indurated consistent with cellulitic appearance. There was no evidence of extension into the perineum. There was no evidence of crepitus. Rectal: Digital rectal examination is deferred at this time per patient request. Lymphatic: No groin lymphadenopathy, no cervical lymphadenopathy noted. Dermatologic: No obvious skin rashes. No lesions with the exception to the exam. Neurologic: Alert and oriented x3. Psychiatric: Appropriate mood and affect. PERTINENT LABS: His white cell count is 25,000. His creatinine is 2.6. His urinalysis on 12/07/2017 was negative for infection. Pertinent images he had a CT of abdomen and pelvis without contrast, without any evidence of pathology. Microbiology: There was no growth via blood culture at 48 hours. ASSESSMENT: A 63-year-old male with multiple medical comorbidities includin. Morbid obesity. 2. Diabetes mellitus. 3. Appears to have cellulitis. 4. Right epididymoorchitis. At this time, he does not appear to have evidence of Angela gangrene. He has been placed on antibiotics and per record on aztreonam as well as clindamycin and Zyvox. This should be plenty of antibiotic coverage should he respond to conservative treatment. I have discussed with the patient that because there was no evidence of Angela's gangrene right now, surgical intervention is not warranted, but should he develop a scrotal abscess or worsening cellulitis, he may benefit from surgical debridement. Of note, he is also on Brilinta and aspirin which would make him not a great surgical candidate. PLAN: 1. Did not recommend surgical intervention at this point and I agree with antibiotic coverage for epididymoorchitis and cellulitis of the scrotum. 2. Would recommend for hospitalist doctors to switch him on Lovenox or other temporary anticoagulation, and hold his Brilinta and aspirin in case if he has to have surgical intervention. 3. We will follow. Thank you for the consultation. cc: Bryce Gonzalez MD
--- NOTE | 2018-12-09 20:19 | INFECTIOUS DISEASE CONSULT REP ---
DATE: 12/09/2018 ADDENDUM: I requested that a bladder scan be performed. It was performed. The patient had 234 mL of urine. I discussed this with Dr. Kaiser, who is the patient's hospitalist, and we both think it would be best to get a Egan catheter inserted. I think because of the patient's inflammation in his scrotum, it may be possibly causing inflammation in the urethra, and therefore I would like to get the Egan catheter in now before the patient has even more obstruction to urine flow. cc: Dheeraj Nguyen MD
[2018-12-09] MEDS: ZOCOR PO SCH (21:01)
[2018-12-09] MEDS: CLINDAMYCIN 600 MG/NS 600 MG/50 ML IVPB IV SCH (21:01)
[2018-12-10] MEDS: LASIX IV SCH ×2 (02:38→15:21)
[2018-12-10] MEDS: AZACTAM 1 GM in NS 50 ML IV SCH ×3 (02:38→18:38)
[2018-12-10] MEDS: DUONEB (A & A) INH SCH ×6 (03:31→23:38)
[2018-12-10] MEDS: CLINDAMYCIN 600 MG/NS 600 MG/50 ML IVPB IV SCH ×3 (03:47→20:51)
[2018-12-10] MEDS: ZYVOX 600 MG/D5W 600 MG/300 ML IVPB IV SCH ×2 (04:25→15:20)
[2018-12-10] MEDS: SYNTHROID PO SCH (06:00)
[2018-12-10] MEDS: HUMULIN R SUBQ SCH ×4 (06:00→20:52)
[2018-12-10] MEDS: ZYRTEC PO SCH (09:30)
[2018-12-10] MEDS: VIIBRYD PO SCH (09:30)
[2018-12-10] MEDS: ULORIC PO SCH (09:30)
[2018-12-10] MEDS: ASPIRIN EC PO SCH (09:31)
[2018-12-10] MEDS: PRINIVIL PO SCH (09:31)
[2018-12-10] MEDS: COREG PO SCH ×2 (09:31→20:51)
[2018-12-10] MEDS: BRILINTA PO SCH ×2 (09:32→20:51)
[2018-12-10] MEDS: VITAMIN D PO SCH (09:32)
--- NOTE | 2018-12-10 09:47 | INFECTIOUS DISEASE PROGRESS NO ---
DATE: 12/10/2018 PRESENT ILLNESS: The patient has scrotal cellulitis. He also has been diagnosed epididymal orchitis by Dr. Gonzalez. MEDICATIONS: The patient is on a combination of aztreonam and clindamycin and Zyvox. PHYSICAL EXAMINATION: Vital Signs: Temperature is 98.9 degrees, pulse 71, respirations 16, blood pressure 110/55. General: This is an obese, middle-aged male. He is in no acute distress. Head, Eyes, Ears, Nose, and Throat: He can hear my spoken words and see near objects. He does not have any white patches on his tongue. Neck: No pain with movement. Lungs: Clear to auscultation. Cardiovascular: Regular heart rate. Abdomen: Soft and nontender. Genitalia: The patient's scrotum is less swollen and it is not quite as erythematous as it was yesterday. It also is not as tender as it was yesterday. Neurologic: The patient is alert. He can move his extremities. There is no tremor. LABORATORY AND X-RAY: There is no CBC or BMP for today. Blood cultures are negative. Urine cultures pending. The patient's IgG is 976 and IgA is 190. Both levels are normal. ASSESSMENT AND PLAN: The patient has scrotal cellulitis with epididymal orchitis. I plan to continue aztreonam, clindamycin, and Zyvox, and tomorrow I am going to repeat his CBC and BMP, and if everything is looking good, I think the patient can be discharged home on oral antibiotics, and also, I think we will be able to take out the Egan catheter as well. COMORBIDITIES: The patient is morbidly obese. He also is a diabetic. cc: Dheeraj Nguyen MD [facility]
--- NOTE | 2018-12-10 09:58 | INFECTIOUS DISEASE PROGRESS NO ---
DATE: 12/10/2018 ADDENDUM: The patient's immunoglobulin levels came back and they all are in the normal range; specifically, IgG is 976 and IgA is 190. cc: Dheeraj Nguyen MD
[2018-12-10] MEDS: TYLENOL PO PRN (10:46)
[2018-12-10 13:43] LABS: BASO# 0.03 X1000 (0.0-0.2); BASO% 0.1 % (0.0-0.8); EOS# 0.47 X1000 (0.0-0.7); EOS% 1.9 % (0.0-10.0); HEMATOCRIT 27.7 % (42.0-52.0); HEMOGLOBIN 9.1 g/dL (14.0-18.0); IMM GRAN# 0.21 X1000 (0.0-0.04); IMM GRAN% 0.9 % (0.0-0.5); LYMPH# 1.34 X1000 (1.2-3.4); LYMPH% 5.5 % (20.5-51.1); MCH 31.3 PG (27-31); MCHC 32.9 g/dL (33-37); MCV 95.2 FL (81-99); MONO# 1.42 X1000 (0.11-0.59); MONO% 5.8 % (1.7-9.3); MPV 10.2 FL (7.4-10.4); NEUT# 20.94 X1000 (1.4-6.5); NEUT% 85.8 % (42.2-75.2); PLT 240 X1000 (130-400); RBC 2.91 XMIL (4.7-6.1); RDW 12.6 % (11.5-14.5); WBC 24.41 X1000 (4.8-10.8)
[2018-12-10] MEDS: NORCO-7.5 PO PRN (13:52)
[2018-12-10 14:10] LABS: ALB/GLOB RATIO 0.7; ALBUMIN 2.5 g/dL (3.5-5.0); CALCIUM 8.4 mg/dL (8.8-10.2); CREATININE 2.7 mg/dL (0.7-1.2); TOTAL BILIRUBIN 0.84 mg/dL (0.20-1.00); TOTAL PROTEIN 6.2 g/dL (6.3-8.3)
[2018-12-10] MEDS ORDERED: AFRIN NASAL SPRAY NAS STA (14:12)
[2018-12-10 14:54] LABS: INR 1.36; PROTIME 17.8 Seconds (11.0-16.0)
[2018-12-10 14:56] LABS: PTT 37.4 Seconds (22.3-41.8)
[2018-12-10] MEDS ORDERED: AYR NASAL SPRAY NAS ONE (14:59)
[2018-12-10] MEDS ORDERED: BACTROBAN OINTMENT TOP ONE (15:00)
--- NOTE | 2018-12-10 15:29 | Diag Imaging Result Doc PS360 ---
EXAM: CHEST-1 VIEW - 12/10/2018 HISTORY: chf TECHNIQUE: Portable chest COMPARISON: 12/07/2018 FINDINGS: There is stable mild cardiomegaly. There is transvenous cardiac pacemaker again seen. The lungs appear clear. There is no gross vascular congestion, pleural effusion, or pneumothorax identified. IMPRESSION: Stable mild cardiomegaly. No acute changes. Electronically signed by Jg Resendez 12/10/2018 3:27 PM
--- NOTE | 2018-12-10 16:38 | PROGRESS NOTE ---
DATE: 12/10/2018 SUBJECTIVE: The patient resting in bed. Not in any obvious distress. OBJECTIVE: Vital signs: Temperature 97.2 degrees, pulse 70, respiratory rate 22, blood pressure is 114/49, oxygen saturation is 92%. HEENT: Patient does have some packing around his nostrils from recent bleed and has old blood stains on his tongue. Cardiovascular System: S1, S2. Respiratory system has evidence of good air entry bilaterally. Abdomen: Soft, nontender. No masses felt. Extremities: He has 2+ edema in the lower extremities. Central Nervous System: No obvious focal deficit noted. Scrotum looks inflamed. DIAGNOSTIC STUDIES: WBCs 24.1, hematocrit is 27.0, platelet count of 240,000. Sodium is 131, potassium 4.0 chloride 96, bicarbonate is 21, BUN is 71, creatinine is 2.7. X-ray of the chest shows stable mild cardiomegaly with no acute changes. ASSESSMENT AND PLAN: 1. Acute congestive heart failure. Monitor intakes and outputs, as well as daily weights. Continue diuretics. Cardiology following. 2. Chronic atrial fibrillation. Continue beta-cayden, as well as Brilinta. Cardiology following. 3. Epistaxis. Probably due to aspirin as well as Brilinta. Will recommend Afrin nasal spray and consult with ENT. 4. Coronary artery disease, asymptomatic. Continue aspirin beta cayden, as well as statin. 5. Diabetes mellitus. Continue blood sugar monitoring as well as sliding scale insulin. 6. Chronic obstructive pulmonary disease (COPD). Use nebulized bronchodilators as needed. 7. Suppressed TSH level. Levothyroxine dose adjusted downward. 8. Hypertension. Continue current antihypertensive regimen. 9. Hyperlipidemia. Continue statin. 10. Leukocytosis. May be secondary to infective process. The patient does have evidence of cellulitis in the scrotum. He is currently on antibiotics. We will follow up on patient's culture report as well. 11. Chronic kidney disease. Will probably get worse with the diuretics. Nephrology already consulted. 12. Anemia. Will check iron studies, including B12 and folic acid levels. Also stool for occult blood. 13. Maintain patient on DVT prophylaxis. cc: Francisco Kaiser MD
--- NOTE | 2018-12-10 18:04 | HEMO/ONC CONSULTATION ---
DATE: 12/10/2018 REQUESTING PHYSICIAN: Hospitalist service. REASON FOR CONSULTATION: Anemia and leukocytosis. HISTORY OF PRESENT ILLNESS: Mr. Carlos Smith is a 63-year-old male who is known to us as we follow him for vitamin B12, iron, and vitamin D deficiencies. It looks like he was actually admitted to the hospital back on 12/07/2018 with what was believed to be CHF exacerbation. Since being in the hospital he has now developed an infection to his scrotum and is currently being treated with multiple IV antibiotics by Infectious Disease. The patient, again, does have a history of iron deficiency anemia. He also has anemia of chronic disease as he has chronic kidney disease. His baseline hemoglobin in our office has been from about 10.[address] up to around 11.8. He also has a baseline creatinine from about 1.[address] up to 2 previously. He is in today and his main complaint is of discomfort related to his infection. Otherwise he reports that he is doing okay. PAST MEDICAL HISTORY: 1. Coronary artery disease. 2. Chronic kidney disease, stage 3. 3. Diabetes mellitus, type 2. 4. Hypertension. 5. Hyperlipidemia. 6. COPD. 7. CHF. 8. Sleep apnea. PAST SURGICAL HISTORY: 1. Coronary stent placement. 2. Pacemaker. 3. Pericardial window. 4. Right shoulder surgery. SOCIAL HISTORY: The patient denies any history of smoking, alcohol, or illicit drugs. FAMILY HISTORY: Positive for coronary artery disease in his mother and his father. PHYSICAL EXAMINATION: Vital Signs: Temperature 98.3 degrees, heart rate 70, respirations 18, blood pressure 110/55, O2 saturation 98% on room air. General: This is an overweight, male who is sitting in his hospital chair in his hospital room. He is in no acute distress. Head: Normocephalic, atraumatic. Eyes: Pupils equal, round, reactive. Glasses in place. Ears, nose, throat, neck, and mouth: Oral mucosa appears to be normal. Gross auditory acuity is intact. Cardiovascular: S1, S2 heard. No murmurs, gallops, rubs appreciated. Respiratory: Chest is clear. No respiratory effort. Abdomen: Obese with positive bowel sounds. Musculoskeletal: No bony abnormalities noted. Neurologic: Patient is alert and oriented. Able to move all extremities. LABS AND STUDIES: White blood cells 24.41, down from 25.28 yesterday, hemoglobin is 9.1, hematocrit 27.7, platelet count 240,000. Sodium 131, potassium 4.0, chloride 96, carbon dioxide 21, BUN 71, creatinine 2.7, glucose 223. Serum iron is 20, iron saturation percent is 10, ferritin is 329, B12 is 812. ASSESSMENT AND PLAN: 1. Leukocytosis. This is likely reactive. He does have an active infection currently. Would monitor for now and would certainly workup further if leukocytosis does not resolve as the infection resolves. The patient has had normal white blood cell counts in our office for several years. 2. Anemia, multifactorial. Patient has anemia related to his chronic kidney disease. It also looks like to some iron deficiency as his saturation percent is down. We usually like that to be closer to 25%. Continue to monitor and transfuse as needed. 3. Congestive heart failure exacerbation. This seems to be improved. Cardiology is on board. 4. Scrotal cellulitis with epididymal orchitis. He is on antibiotics per Dr. Nguyen. Continue per his management. 5. Chronic atrial fibrillation. Continue current management. Cardiology is on board. Thank you for consulting us on Mr. Smith while he is at [facility]. We will continue to follow along and adjust our treatment plan per his hospital course. Dictated by EVAN Corey for Riley Priest MD cc: Riley Priest MD
--- NOTE | 2018-12-10 18:17 | NEPHROLOGY CONSULTATION ---
DATE: 12/10/2018 REASON FOR CONSULTATION: Chronic kidney disease. HISTORY OF PRESENT ILLNESS: Mr. Smith is a 63-year-old white male with diabetes, obesity, hypertension and COPD. He has known chronic kidney disease. He follows with Dr. Warren in [place]. He developed acute kidney injury following contrast-induced nephropathy and has followed with her since that time. He relates that his baseline is around 1.2 to 1.5. The record here finds his most recent creatinine in 2017 to be 2.0. He has chronic lower extremity swelling and he states swelling at this time is "about average." He was admitted to the hospital with cellulitis and epididymitis/orchitis. He had cough, congestion and shortness of breath. He discussed this with his primary care doctor, who directed him to the emergency room for admission. He was treated with IV diuretics and admitted to the hospital. He also had redness and swelling of the scrotum. Examination by Urology and Infectious Disease diagnosed cellulitis and orchitis/epididymitis. He has been treated with IV antibiotics on this basis. In this context, his creatinine was 2.6 on admission and has ranged between 2.3 and 2.7. BUN has risen progressively from 55 to 71. He is receiving IV diuretics and is net negative approximately 1.5 L. Again, he states his swelling is about average. Shortness of breath is improved but still present. No chest pain, palpitations, nausea, vomiting or anorexia. PAST MEDICAL HISTORY: As above. He also has a history of a pacemaker; coronary artery disease, status post PCI; pericardial window; hyperlipidemia; obstructive sleep apnea. MEDICATIONS: Home medications include Xanax, Eliquis, aspirin, Brilinta, carvedilol, Uloric, furosemide, Tresiba, Humalog, levothyroxine, Linzess, lisinopril, simvastatin, Viibryd. ALLERGIES: Multiple, as listed. SOCIAL HISTORY: No alcohol or tobacco. FAMILY HISTORY: Otherwise noncontributory. REVIEW OF SYSTEMS: Otherwise noncontributory. PHYSICAL EXAMINATION: Blood pressure 110/55, heart rate 70, respirations 18, afebrile. Generally he is an elderly man, chronically ill, in no distress. Obese. Skin is warm and dry. Conjunctivae are pink. Pupils are equal. Oropharynx is clear. Tongue is dry. Neck is supple. Neck veins are not distended. Trachea is midline. Heart is regular. No gallops or murmurs. Lungs are equal. No crackles or wheezes. Abdomen soft, obese, nontender. Bowel sounds present. Extremities with trace edema. No clubbing or cyanosis. Neurologic exam is grossly nonfocal. IMPRESSION AND PLAN: Chronic kidney disease stage 3B to 4. His creatinine has risen modestly and he has a high BUN/creatinine ratio. He really has minimal edema on exam and does not have neck vein distention. Chest x-ray performed today has not been read yet but does appear to have cephalization and increased interstitial markings, suggesting pulmonary edema. He takes Lasix 80 mg in the morning and 40 mg at night as his home dose, and he is currently receiving furosemide 40 mg intravenously q.12 hours. I will increase his dose to 80 mg q.12 hours and observe his response over the next 24-48 hours. No other changes are necessary from my perspective at this time. We will follow along and make further recommendations as appropriate. Electrolytes and acid-base are in target. He does have anemia, but it is moderate in degree and stable. cc: Aris Durán MD
--- NOTE | 2018-12-10 18:41 | PROGRESS NOTE ---
DATE: 12/10/2018 SUBJECTIVE: Mr. Smith reports mild improvement in his discomfort. He denies drainage on his bedsheets. OBJECTIVE: T 98.9 degrees, P 70, BP 110/55. General: No acute distress. Abdomen obese, nontender to palpation. : He has erythematous scrotum, and persistent edema and tenderness to palpation of the right testicle and epididymis. There is no evidence of crepitus, no evidence of fluctuance, no evidence of perineal involvement. LABORATORY DATA: White cell count is 24,000, creatinine is 2.7. ASSESSMENT: A 63-year-old male with multiple medical comorbidities who has scrotal cellulitis and epididymoorchitis. He was placed on antibiotics by Dr. Nguyen yesterday, that should cover epididymoorchitis and cellulitis. I discussed with the patient previously that if he had to have intervention, he would benefit from holding his Brilinta. I have also discussed the patient with our Cardiology colleagues, and was advised that it would not be a great idea for the patient to stop his Brilinta unless it was absolutely necessary. This is reportedly due to his high risk of coronary artery disease and coronary event. Hence, I have discussed this with the patient. We agreed for him to continue his Brilinta for now and if he does end up to have incision and debridement of his scrotum, we have to deal with the bleeding subsequently. He voiced understanding that he is in a difficult situation. PLAN: 1. I agree with continuing antibiotics. 2. No urologic intervention needed at this point, as his cellulitis and epididymoorchitis have not progressed to an abscess. 3. We will follow. cc: Bryce Gonzalez MD
[2018-12-10] MEDS ORDERED: LASIX IV ONE (19:00)
[2018-12-10] MEDS: ZOCOR PO SCH (20:51)
[2018-12-10] MEDS ORDERED: AFRIN NASAL SPRAY NAS SCH (21:00)
[2018-12-10] MEDS: ICAR-C PO SCH (21:19)
[2018-12-11] MEDS: AZACTAM 1 GM in NS 50 ML IV SCH ×3 (00:30→17:06)
[2018-12-11] MEDS: NORCO-7.5 PO PRN ×2 (03:04→16:15)
[2018-12-11] MEDS: DUONEB (A & A) INH SCH ×5 (03:27→19:45)
[2018-12-11] MEDS: ZYVOX 600 MG/D5W 600 MG/300 ML IVPB IV SCH (03:31)
[2018-12-11] MEDS: CLINDAMYCIN 600 MG/NS 600 MG/50 ML IVPB IV SCH ×3 (03:31→21:58)
[2018-12-11 05:07] LABS: ALLEN TEST YES; BE -2.9 mmoll (-3.0-3.0); BLOOD TYPE ARTERIAL; HCO3-(ACT) 22.6 mmoll (20.0-26.0); METHB 1.1 % (0.0-1.5); O2(CT) 12.8 mL/dL (15.0-23.0); O2HB 94.1 % (95.0-99.0); PCO2(98.6) 37 mmHg (35-45); PO2(98.6) 77 mmHg (60-100); SAMPLE BLOOD; SAO2 97.5 % (95.0-100.0); THB 9.6 g/dL (11.5-17.4); pH(98.6) 7.38 (7.35-7.45)
[2018-12-11 05:08] LABS: MODALITY VENTIMASK
[2018-12-11] MEDS: LASIX IV SCH ×2 (05:19→18:30)
[2018-12-11] MEDS: HUMULIN R SUBQ SCH ×5 (06:02→22:40)
[2018-12-11] MEDS: SYNTHROID PO SCH (06:02)
[2018-12-11 07:18] LABS: BASO# 0.01 X1000 (0.0-0.2); EOS# 0.57 X1000 (0.0-0.7); EOS% 2.4 % (0.0-10.0); HEMATOCRIT 26.3 % (42.0-52.0); HEMOGLOBIN 8.7 g/dL (14.0-18.0); IMM GRAN# 0.27 X1000 (0.0-0.04); IMM GRAN% 1.1 % (0.0-0.5); LYMPH# 1.35 X1000 (1.2-3.4); LYMPH% 5.7 % (20.5-51.1); MCH 31.2 PG (27-31); MCHC 33.1 g/dL (33-37); MCV 94.3 FL (81-99); MONO# 1.48 X1000 (0.11-0.59); MONO% 6.2 % (1.7-9.3); MPV 10.1 FL (7.4-10.4); NEUT# 20.02 X1000 (1.4-6.5); NEUT% 84.6 % (42.2-75.2); PLT 270 X1000 (130-400); RBC 2.79 XMIL (4.7-6.1); RDW 12.3 % (11.5-14.5)
[2018-12-11 07:41] LABS: BANDS 2 % (0-1); LYMPHS 4 % (21-51); MONO 2 % (1-9); SEGS 92 % (42-75)
[2018-12-11 07:46] LABS: CALCIUM 8.1 mg/dL (8.8-10.2); CREATININE 2.6 mg/dL (0.7-1.2); POTASSIUM 3.8 mmol/L (3.5-5.1)
[2018-12-11] MEDS: ZYRTEC PO SCH (09:23)
[2018-12-11] MEDS: ASPIRIN EC PO SCH (09:23)
[2018-12-11] MEDS: COREG PO SCH ×2 (09:23→21:59)
[2018-12-11] MEDS: ICAR-C PO SCH (09:23)
[2018-12-11] MEDS: VITAMIN D PO SCH (09:23)
[2018-12-11] MEDS: BRILINTA PO SCH ×2 (09:23→21:59)
[2018-12-11] MEDS: VIIBRYD PO SCH ×2 (09:25→10:53)
[2018-12-11] MEDS: ULORIC PO SCH (09:25)
--- NOTE | 2018-12-11 09:50 | NEPHROLOGY PROGRESS NOTE ---
DATE: 12/11/2018 SUBJECTIVE: He states he is better. He is lying in bed. He is still wearing a closed face mask. He states he does have home oxygen that he wears at night. He feels like his swelling has improved. OBJECTIVE: Vital Signs: Blood pressure 96/39, heart rate 70, respirations 16, afebrile. Intake 1.3 L; output 2.9 L. Net negative 2.6 L since admission. General: On physical exam, an obese white male, lying in bed in no distress. Skin: Warm and dry. Eyes: Conjunctivae are pink. Neck: Neck veins are not appreciated. Trachea is midline. Heart: Regular without gallops. Lungs: Equal. No crackles or wheezes. Decreased breath sounds overall. Abdomen: Soft, nontender, obese. Bowel sounds present. Extremities: 2+ edema. No clubbing or cyanosis. IMPRESSION: 1. Chronic kidney disease stage IV. We are working to establish his baseline creatinine. He states his baseline is around 1.5. His columnist is Dr. Warren in [place], and we reached out to her. 2. Volume overload. I will continue Lasix 80 mg intravenous twice daily. 3. Electrolytes/acid base in target. 4. Anemia below target. He did have significant iron deficiency on his lab studies, but given his significant infection I would prefer to hold on intravenous iron at this time. cc: Aris Durán MD
--- NOTE | 2018-12-11 11:55 | INFECTIOUS DISEASE PROGRESS NO ---
DATE: 12/11/2018 PRESENT ILLNESS: The patient has scrotal cellulitis and epididymal orchitis. MEDICATIONS: The patient is on a combination of aztreonam and clindamycin IV and Zyvox p.o. PHYSICAL EXAMINATION: Vital Signs: Temperature is 98 degrees, pulse 70, respirations 16, blood pressure 96/39. General: This is an obese, middle-aged male who is in no acute distress. Head/eyes/ears/nose/throat: He can hear my spoken words and see near objects. He does not have any white patches on his tongue. Neck: There is no pain when he moves his neck. Lungs: Clear to auscultation. Cardiovascular: Regular heart rate. Abdomen: Soft and nontender. Genitalia: The patient's scrotum is less swollen than it was yesterday. However, it does remain erythematous. Neurologic: Patient is alert. He can move his extremities. There is no tremor. LAB AND X-RAY: Immunoglobulin G and A were normal. Creatinine is 2.6. GFR is 25. Blood and urine cultures [place] [address], hemoglobin 8.7, and platelet count 270,000. Blood gases show a pH of 7.38, a pO2 of 77 and a pCO2 of 37. ASSESSMENT AND PLAN: Patient has scrotal cellulitis and epididymal orchitis. I have discontinued Zyvox but I plan to continue aztreonam and clindamycin. I think fairly soon, however, the patient could go home on oral antibiotics. Most likely I would suggest sending him home on Levaquin 250 mg daily. I plan to check the patient back in the office in approximately 2 weeks. COMORBIDITY: Morbid obesity, diabetes mellitus. cc: Dheeraj Nguyen MD [facility]
--- NOTE | 2018-12-11 12:09 | PROGRESS NOTE ---
DATE: 12/11/2018 SUBJECTIVE: Patient is resting in bed. Not in any obvious distress. He does have nasal packing in the left nostril as a result of nasal bleed which he experienced yesterday. OBJECTIVE: Vital signs: Temperature is 98 degrees, pulse 78, respirations 16, blood pressure is 96/59, and oxygenation is 100%. HEENT: He is atraumatic, normocephalic. He does have nasal packing in the left nostril. Cardiovascular: S1, S2. Respiratory: Good air entry bilaterally. Abdomen: Soft, nontender. No masses felt. Genitourinary: Scrotum still inflamed. Erythematosus. Extremities: He has 1 to 3+ edema in both lower extremities. Central nervous system: No obvious focal deficits noted. LABORATORY: WBC is 23.7 with a platelet count of 270,000. Hematocrit is 26.3. ABG 7.3/37/77/97.5. Chemistry: Sodium is 134, potassium 3.8, chloride 98, bicarb 21, BUN is 74 and creatinine 2.6. ASSESSMENT AND PLAN: 1. Acute CHF. Continue diuretics. Monitor intakes and outputs as well as daily weights. Cardiology following. 2. Chronic atrial fibrillation. Continue beta-cayden as well as Brilinta. Cardiology following. 3. Epistaxis probably secondary to aspirin as well as Brilinta. 4. Afrin nasal spray recommended. The patient was seen by the ENT team yesterday, and had nasal packing in the left nostril. 5. Coronary artery disease. Asymptomatic. Continue aspirin beta cayden as well as statin. 6. Diabetes mellitus. Continue blood sugar monitoring as well as sliding scale insulin. 7. COPD. Continue nebulized bronchodilators as needed. 8. Suppressed TSH level. Levothyroxine dose adjusted. 9. Hypertension. Blood pressure this morning is somewhat on the hypotensive side. Will need to hold off on antihypertensive medications if the systolic is less than 150 mmHg. 10. Hyperlipidemia. Continue statin. 11. Leukocytosis, probably secondary to infective process. The patient's primary infection is currently in the scrotum where there is evidence of cellulitis. He is currently on antibiotics. Hematology/oncology consulted for leukocytosis as well. We will obtain a flow cytometry of peripheral blood in addition. 12. Chronic kidney disease. Nephrology following. 13. Anemia. Follow up on hemoglobin and hematocrit. Transfuse packed red blood cells if needed. Serum iron level noted to be low. The patient will need iron replacement. We will also consult with GI to evaluate for GI endoscopic studies when patient is more stable. 14. DVT prophylaxis. SCDs. cc: Francisco Kaiser MD
[2018-12-11 12:53] LABS: FLOW CYTOMETERY SOURCE WHOLE BLOOD; LEUKEMIA LYMPHOMA BY FLOW REFERRED FOR TESTING
[2018-12-11] MEDS: ZOCOR PO SCH (21:59)
[2018-12-11] MEDS: TYLENOL PO PRN (22:38)
[2018-12-12] MEDS: XANAX PO PRN ×2 (00:53→20:52)
[2018-12-12] MEDS: AZACTAM 1 GM in NS 50 ML IV SCH ×3 (00:53→16:50)
[2018-12-12] MEDS: DUONEB (A & A) INH SCH ×7 (03:25→22:45)
[2018-12-12] MEDS: LASIX IV SCH (06:21)
[2018-12-12] MEDS: CLINDAMYCIN 600 MG/NS 600 MG/50 ML IVPB IV SCH ×3 (06:21→21:03)
[2018-12-12] MEDS: HUMULIN R SUBQ SCH ×4 (06:29→20:51)
[2018-12-12] MEDS: SYNTHROID PO SCH (06:29)
[2018-12-12 08:47] LABS: CALCIUM 8.1 mg/dL (8.8-10.2); CREATININE 2.5 mg/dL (0.7-1.2); MAGNESIUM 2.5 mg/dL (1.5-2.7); POTASSIUM 5.2 mmol/L (3.5-5.1)
[2018-12-12] MEDS: VIIBRYD PO SCH (09:29)
[2018-12-12] MEDS: ULORIC PO SCH (09:30)
[2018-12-12] MEDS: VITAMIN D PO SCH (09:30)
[2018-12-12] MEDS: ASPIRIN EC PO SCH (09:30)
[2018-12-12] MEDS: ICAR-C PO SCH (09:30)
[2018-12-12] MEDS: COREG PO SCH ×2 (09:31→20:52)
[2018-12-12] MEDS: BRILINTA PO SCH (09:31)
[2018-12-12] MEDS: ZYRTEC PO SCH (09:31)
--- NOTE | 2018-12-12 13:13 | PROGRESS NOTE ---
DATE: 12/12/2018 INTERVAL HISTORY: The patient's dyspnea essentially resolved at this point. Scrotal swelling and discomfort improving. No new complaints. No acute events overnight. REVIEW OF SYSTEMS: Twelve point review of systems except as per interval history. LABS: Sodium 135, potassium 5.2, BUN 76, creatinine 2.5, glucose 128. VITALS: T-max 98.6 degrees, pulse 78, respirations 15, blood pressure 131/54, O2 saturation 96 percent on room air. PHYSICAL EXAMINATION: General: No acute distress. Vitals: As above. HEENT: Normocephalic, atraumatic. Moist mucous membranes. No cervical adenopathy. Cardiovascular: Regular rate and rhythm. No murmurs, rubs, or gallops. Pulmonary: Clear to auscultation within the limits of the body habitus. No wheezing, rales, or rhonchi noted. Abdomen: Obese, soft, nontender, nondistended. Bowel sounds positive. Extremities: Peripheral pulses decreased but intact. 2 to 3+ lower extremity edema remains. Neurologic: Cranial nerves grossly intact. No focal deficits identified. Psychiatric: Normal mood and affect. Awake, alert, oriented x3. Skin: No new rashes or lesions identified. ASSESSMENT AND PLAN: 1. Scrotal cellulitis and orchitis. Improving. Patient on antibiotics with aztreonam and clindamycin as per Infectious Disease. Per ID recommendations, likely transition to Levaquin at discharge. 2. Epistaxis likely due to anti-platelet therapy and oxygen. Now resolved with packing in the left nostril. 3. Coronary artery disease, stable. Continue home aspirin, beta cayden, statin. 4. Diabetes mellitus. Reasonable control on current regimen. Continue to monitor glucose. 5. Chronic obstructive pulmonary disease. No sign of exacerbation at this point. Continue nebulizers as needed. 6. Low TSH. Synthroid dose has been decreased. Continue to monitor. 7. Hypertension. Reasonable control on current regimen. Continue. 8. Hyperlipidemia. Continue statin. 9. CKD possibly KI. Patient's baseline not well defined. Slight increase in creatinine from admission but largely stable. Has been on fairly aggressive diuresis. Can likely decrease that significantly at this point. 10. Lower extremity edema. Concern for acute congestive heart failure on admission, but echocardiogram showing normal EF. No clear diastolic failure. Only mild pulmonary hypertension. Chest x-ray has remained clear. No recent BNP to compare to previous. Patient does have some significant lower extremity edema, but no clear sign of CHF exacerbation at this time. We will see what field instructor says, they can likely significantly decrease his diuresis and see if his kidney function will improve. 11. Anemia. Iron studies unremarkable. B12 and folate unremarkable. Likely anemia of chronic disease related to chronic kidney disease. 12. Disposition. If the patient's kidney function is stable to improved and Infectious Disease okay with transition to p.o. antibiotics then can likely be discharged home in the next 24 to 48 hours.
[2018-12-12] MEDS: NORCO-7.5 PO PRN ×2 (13:53→21:18)
--- NOTE | 2018-12-12 13:56 | NEPHROLOGY PROGRESS NOTE ---
DATE: 12/12/2018 SUBJECTIVE: He is lying on his left side. He has had no further nose bleeds. No shortness of breath. He is not requiring oxygen. OBJECTIVE: VITAL SIGNS: Blood pressure 131/54, heart rate 100, respirations 15, afebrile. Intake 2.1 L. Output 3.8 L. PHYSICAL EXAMINATION: General: Obese male, no acute distress. Skin: Warm and dry. Eyes: Conjunctivae are pink. Neck: Neck veins are not appreciated. Heart: Regular. Lungs: Equal, distant, no crackles. Abdomen: Obese, soft, nontender. Bowel sounds present. Extremities: Have 2+ edema. No clubbing or cyanosis. IMPRESSION: Acute kidney injury. I reviewed his records from Dr. Warren's office. Baseline creatinine 1.5 to 1.6 historically with no blood or protein in the urine. His creatinine has been consistently 1.3 to 1.7 since admission. Good urine output response to diuretics. I will cut the dose to once daily. He does have a mild metabolic acidosis and hyperkalemia today. Anion gap is 18. We will collect urine electrolytes. cc: Aris Durán MD
--- NOTE | 2018-12-12 14:18 | PROGRESS NOTE ---
DATE: 12/12/2018 SUBJECTIVE: Patient continues without chest discomfort or dyspnea. He still has packing device in his left nose because of significant nosebleed. OBJECTIVE: Vital Signs: Blood pressure 102/49, heart rate 85, oxygen saturation 100%. Neck: Jugular venous distention cannot be appreciated. Chest: Clear to auscultation bilaterally. Cardiac: Reveals a regular rate and rhythm without appreciable murmur or gallop. Extremities: Demonstrate moderate edema. LABORATORY DATA: Includes sodium 135, potassium 5.2, chloride 103, carbon dioxide 14, BUN 76, creatinine 2.5, glucose 63. IMPRESSION: 1. Atherosclerotic coronary disease. Patient continues clinically stable without angina. 2. Acute on chronic congestive heart failure with normal left ventricular ejection fraction. This is likely multifactorial in origin. Chronic kidney disease also playing a role. 3. Epistaxis, on anticoagulant and antiplatelet therapy. 4. Chronic kidney disease. 5. Hypertension. 6. Hyperlipidemia. 7. Obesity. 8. Type 2 diabetes mellitus. 9. Scrotal cellulitis. RECOMMENDATIONS: 1. Given that patient is well over a year out from his last coronary stent, it would be reasonable to abandon dual antiplatelet therapy. He essentially developed epistaxis while on triple therapy as he is also on anticoagulation with Eliquis due to his atrial fibrillation. Recommend stopping Brilinta and continuing the patient on aspirin alone for right now. Ultimately, I would like to bring back Eliquis for the important benefit of thromboembolic/stroke risk reduction. 2. Continue current cardiovascular regimen. 3. Otherwise unchanged. cc: Urbano Best MD
[2018-12-12 17:06] LABS: URINE SOURCE VOIDED
[2018-12-12 17:12] LABS: BILIRUBIN URINE NEGATIVE (NEGATIVE); BLOOD URINE NEGATIVE (NEGATIVE); COLOR YELLOW; GLUCOSE URINE NEGATIVE (NEGATIVE); KETONE URINE NEGATIVE (NEGATIVE); LEUKOCYTES URINE NEGATIVE (NEGATIVE); NITRITE URINE NEGATIVE (NEGATIVE); PROTEIN URINE NEGATIVE (NEGATIVE); SP GRAVITY URINE 1.001; TURBIDITY URINE CLEAR (CLEAR); UROBILINOGEN URINE NORMAL (NORMAL)
[2018-12-12 17:13] LABS: UR EPITHELIAL CELLS <10 /HPF (<10); URINE BACTERIA NEGATIVE /HPF; URINE RBC <10 /HPF (<10); URINE WBC <10 /HPF (<10)
[2018-12-12 18:06] LABS: UR CHLORIDE 18 mmoll; UR PROT RANDOM < 4.0 mg/dL; UR SODIUM 26 mmoll
[2018-12-12] MEDS: ZOCOR PO SCH (20:52)
[2018-12-13] MEDS: AZACTAM 1 GM in NS 50 ML IV SCH ×3 (02:38→18:45)
[2018-12-13] MEDS: DUONEB (A & A) INH SCH ×6 (03:39→23:20)
[2018-12-13] MEDS: CLINDAMYCIN 600 MG/NS 600 MG/50 ML IVPB IV SCH ×4 (04:58→21:52)
[2018-12-13] MEDS: SYNTHROID PO SCH (06:56)
[2018-12-13] MEDS: HUMULIN R SUBQ SCH ×4 (06:56→20:24)
[2018-12-13 09:00] LABS: CALCIUM 8.4 mg/dL (8.8-10.2); CREATININE 2.1 mg/dL (0.7-1.2); POTASSIUM 4.5 mmol/L (3.5-5.1)
[2018-12-13 09:38] LABS: BASO# 0.02 X1000 (0.0-0.2); BASO% 0.1 % (0.0-0.8); EOS# 0.55 X1000 (0.0-0.7); EOS% 2.5 % (0.0-10.0); HEMATOCRIT 29.3 % (42.0-52.0); HEMOGLOBIN 9.6 g/dL (14.0-18.0); IMM GRAN# 0.47 X1000 (0.0-0.04); IMM GRAN% 2.1 % (0.0-0.5); MCH 30.9 PG (27-31); MCHC 32.8 g/dL (33-37); MCV 94.2 FL (81-99); MONO# 1.64 X1000 (0.11-0.59); MONO% 7.4 % (1.7-9.3); MPV 9.5 FL (7.4-10.4); NEUT# 18.24 X1000 (1.4-6.5); NEUT% 82.9 % (42.2-75.2); PLT 328 X1000 (130-400); RBC 3.11 XMIL (4.7-6.1); RDW 12.5 % (11.5-14.5); WBC 22.02 X1000 (4.8-10.8)
[2018-12-13] MEDS: VIIBRYD PO SCH (09:55)
[2018-12-13] MEDS: ULORIC PO SCH (09:56)
[2018-12-13] MEDS: ASPIRIN EC PO SCH (09:56)
[2018-12-13] MEDS: ICAR-C PO SCH (09:56)
[2018-12-13] MEDS: ZYRTEC PO SCH (09:56)
[2018-12-13] MEDS: VITAMIN D PO SCH (09:56)
[2018-12-13] MEDS: COREG PO SCH ×2 (09:57→20:24)
[2018-12-13] MEDS: LASIX IV SCH (09:57)
[2018-12-13] MEDS: NORCO-7.5 PO PRN ×2 (09:58→17:05)
[2018-12-13 12:08] LABS: BANDS 6 % (0-1); LYMPHS 4 % (21-51); MONO 10 % (1-9); NRBC 1 % (0-0); SEGS 80 % (42-75)
[2018-12-13 12:09] LABS: HYPOCHROM 1+
--- NOTE | 2018-12-13 14:56 | Diag Imaging Result Doc PS360 ---
EXAM: CHEST-1 VIEW HISTORY: chf TECHNIQUE: Chest single view COMPARISON: 12/10/2018 FINDINGS: The lungs are well expanded. The heart is mildly enlarged. There is a left-sided pacemaker. The vessels are not distended. There are no infiltrates. No effusion identified. IMPRESSION: Mild cardiomegaly Electronically signed by Albert aDrnell 12/13/2018 2:54 PM
--- NOTE | 2018-12-13 14:57 | PROGRESS NOTE ---
DATE: 12/13/2018 SUBJECTIVE: Patient resting in bed not in any obvious distress. Has nasal packing left nostril there is no nasal bleed which she experienced 12/10/2018. OBJECTIVE: Temperature 98.1 degrees, pulse 70, respiration 21, blood pressure is 120/64, oxygen saturation 100%.HEENT: Atraumatic, normocephalic. Cardiovascular: S1, S2. Respiratory: Has evidence of good air entry bilaterally. Abdomen: Is soft, nontender, no masses felt. Extremities: Has 2+ edema in the lower extremities. Genitourinary: Scrotum erythematous. LABS: WBC 22.02, hematocrit 29.3 with a platelet count of 328,000, sodium 135, potassium 4.5, chloride 100, bicarb 23, BUN is 60, creatinine 2.1. ASSESSMENT AND PLAN: 1. Acute congestive heart failure. Continue diuretics, monitor I's and O's well as daily weights. Cardiology following. 2. Chronic atrial fibrillation, continue beta-cayden . Cardiology following. 3. Epistaxis probably secondary to aspirin/Brilinta. Afrin nasal spray recommended. Left nostril packed by ear, nose and throat team. 4. Coronary artery disease asymptomatic. Continue aspirin, beta cayden as well as statin. 5. Diabetes mellitus. Continue blood sugar monitor as well as sliding scale insulin. 6. Chronic obstructive pulmonary disease. Continue nebulized bronchodilators. 7. Suppressed TSH level. Levothyroxine level dose adjusted. 8. Hypertension. Continue current antihypertensive regimen. 9. Hyperlipidemia. Continue statin. 10. Leukocytosis probably secondary infection. White count showing a downward trend. 11. Chronic kidney disease nephrology following. 12. Anemia. Follow up on hemoglobin, hematocrit, transfuse PRBCs as needed. 13. Deep vein thrombosis prophylaxis SCDs. cc: Francisco Kaiser MD MTDD
--- NOTE | 2018-12-13 16:58 | PROGRESS NOTE ---
DATE: 12/13/2018 SUBJECTIVE: Mr. Smith reports he is not feeling any different with respect to his scrotum. He definitely feels it is not worse. He does not think it has improved much. He denies severe pain. He denies any drainage of the sheets. He does report that it is easier for him to urinate. PHYSICAL EXAMINATION: T 98.1 degrees, P 86, BP 140/82.General: No acute distress. HEENT: Normocephalic, atraumatic. Abdomen: Nontender, nondistended, but protuberant. Back: No CVA tenderness. Genitourinary: Erythematous scrotum and the base of the penile shaft skin. No fluctuance. No crepitus. No involvement past the perineum noted. Extremities: No significant cyanosis, stable edema. PERTINENT LABORATORY DATA: His white cell count is 22,000, hematocrit is 29. ASSESSMENT AND PLAN: A 63-year-old male with multiple medical comorbidities who has scrotal cellulitis as well as right epididymoorchitis that appears to be marginally improving. I discussed with the patient that as long as his condition does not worsen for concern of abscess or Angela's gangrene, I will have to be conservative given his multiple medical comorbidities and the need to be on Brilinta. He is dealing with epistaxis as we speak. PLAN: 1. No need for urologic intervention at this point. 2. We will monitor. cc: Bryce Gonzalez MD
[2018-12-13] MEDS: ZOCOR PO SCH (20:24)
[2018-12-13] MEDS: XANAX PO PRN (20:27)
[2018-12-14] MEDS: NORCO-7.5 PO PRN ×4 (00:30→21:52)
[2018-12-14] MEDS: AZACTAM 1 GM in NS 50 ML IV SCH ×3 (02:55→18:32)
[2018-12-14] MEDS: DUONEB (A & A) INH SCH ×6 (03:30→23:12)
[2018-12-14] MEDS: CLINDAMYCIN 600 MG/NS 600 MG/50 ML IVPB IV SCH ×2 (05:19→15:35)
[2018-12-14] MEDS: HUMULIN R SUBQ SCH ×4 (06:14→21:53)
[2018-12-14] MEDS: SYNTHROID PO SCH (06:15)
[2018-12-14 07:19] LABS: BASO# 0.05 X1000 (0.0-0.2); BASO% 0.2 % (0.0-0.8); EOS# 0.64 X1000 (0.0-0.7); HEMATOCRIT 28.9 % (42.0-52.0); HEMOGLOBIN 9.4 g/dL (14.0-18.0); IMM GRAN# 0.51 X1000 (0.0-0.04); IMM GRAN% 2.4 % (0.0-0.5); LYMPH# 1.24 X1000 (1.2-3.4); LYMPH% 5.8 % (20.5-51.1); MCH 30.5 PG (27-31); MCHC 32.5 g/dL (33-37); MCV 93.8 FL (81-99); MONO# 1.73 X1000 (0.11-0.59); MONO% 8.2 % (1.7-9.3); MPV 9.2 FL (7.4-10.4); NEUT# 17.05 X1000 (1.4-6.5); NEUT% 80.4 % (42.2-75.2); PLT 316 X1000 (130-400); RBC 3.08 XMIL (4.7-6.1); RDW 12.6 % (11.5-14.5); WBC 21.22 X1000 (4.8-10.8)
[2018-12-14 07:38] LABS: CALCIUM 8.4 mg/dL (8.8-10.2); POTASSIUM 3.9 mmol/L (3.5-5.1)
[2018-12-14] MEDS: VITAMIN D PO SCH (08:54)
[2018-12-14] MEDS: VIIBRYD PO SCH (08:54)
[2018-12-14] MEDS: ZYRTEC PO SCH (08:54)
[2018-12-14] MEDS: ICAR-C PO SCH (08:54)
[2018-12-14] MEDS: ASPIRIN EC PO SCH (08:54)
[2018-12-14] MEDS: ULORIC PO SCH (08:54)
[2018-12-14] MEDS: COREG PO SCH ×2 (08:55→21:52)
[2018-12-14] MEDS: LASIX IV SCH (08:55)
--- NOTE | 2018-12-14 11:05 | NEPHROLOGY PROGRESS NOTE ---
DATE: 12/14/2018 TIME SEEN: 0705. SUBJECTIVE: Mr. Smith is resting quietly. He is on his side. He has taken off his CPAP mask. States that he feels like he is doing better, going to the bathroom all night. OBJECTIVE: Vital Signs: Temperature 97.3 degrees, blood pressure 117/54, heart rate 87, respirations 20. He has been on CPAP. Last recorded saturation of 100%. He has had 840 in and 3075 out. He is in a -5 L fluid balance since his hospitalization. Labs: Sodium 138, potassium 3.9, chloride is 101, CO2 23, BUN 61, creatinine 2, glucose 124, anion gap is 14, calcium 8.4. White count 21.22, hemoglobin 9.4, hematocrit 28.9, with a platelet count of 316,000. Physical Examination: General: This is a 63-year-old, white male resting quietly in bed. Head of the bed is elevated. No acute distress. Skin is warm and dry. HEENT: Normocephalic, atraumatic. Conjunctivae are pale. He has SINAI. Mucous membranes are dry. Neck: Supple. Trachea midline. He has trace JVD. Cardiovascular: He is regular rate and rhythm. He is without murmur or gallop. Lungs: Distant lung sounds. Otherwise remains on O2 support. Abdomen: Obese, soft, nontender. Positive bowel sounds. Genitourinary: Not inspected. The patient has had adequate urine output documented with a good response to his diuretics. Extremities: Have 2+ lower extremity edema. Neurological: He is alert and oriented. ASSESSMENT AND PLAN: 1. Acute kidney injury on chronic kidney disease stage 3. The patient's baseline creatinine is 1.5 to 1.6. His creatinine is currently at 2 and has been stable. Adequate urine output has been documented. The patient is in need of a followup at Dr. Warren's office, his primary enrobing machine feeder, after discharge. 2. Electrolytes and acid-base balance. These are stable. 3. Anemia. This is stable. 4. Leukocytosis. The patient remains with a white count of 21.2 this morning. This is currently followed by the primary care. 5. Congestive heart failure with exacerbation. Patient does remain on Lasix with good response. Continues on lasix 80 mg intravenous daily. I would like to thank you for allowing us to follow with this patient. Dictated by JOCE Vela for Aris Durán MD Face to face encounter, data reviewed, discussed with Ramses Joseph on 12/14/18. I agree with the above assessment and plan of care. cc: JOCE Vela MD [facility]
[2018-12-14] MEDS ORDERED: COREG PO SCH (13:30)
--- NOTE | 2018-12-14 14:05 | PROGRESS NOTE ---
DATE: 12/14/2018 SUBJECTIVE: The patient is seated on the chair. Not in any obvious distress. OBJECTIVE: Vital signs: Temperature 97.3 degrees, pulse 71, respiratory rate 15, blood pressure 136/70, oxygen saturation is 100%. HEENT: He is atraumatic, normocephalic. Cardiovascular System: S1, S2. Respiratory System: Has evidence of good air entry bilaterally. Abdomen: Soft, obese, nontender. Genitourinary: Scrotum looks still erythematous, but somewhat improved. Extremities: Has edema in both lower extremities. Central nervous system: No obvious focal deficits noted. LABORATORY DATA: WBC is 21.22, hematocrit is 28.9, platelet count of 316. Sodium is 138, potassium 3.9, chloride is 101, bicarbonate 23, BUN is 61, creatinine is 2.0, glucose is 124. ASSESSMENT AND PLAN: 1. Acute congestive heart failure. Continue diuretics. Monitor intakes and outputs, as well as daily weights. Cardiology is following. 2. Chronic atrial fibrillation. Continue beta cayden as well as Brilinta. Cardiology is following. 3. Epistaxis secondary to aspirin/Brilinta. Afrin nasal spray recommended. Left nasal packing done by ENT. 4. Coronary artery disease, asymptomatic. Continue aspirin, beta cayden, as well as statin. 5. Diabetes mellitus. Continue blood sugar monitoring, as well as sliding scale insulin. 6. Chronic obstructive pulmonary disease (COPD). Continue nebulized bronchodilators. 7. Suppressed TSH level. Levothyroxine level dose adjusted. 8. Hypertension. Continue current hypertensive regimen. 9. Hyperlipidemia. Continue statin. 10. Leukocytosis, probably secondary to infective process. Her white count is showing a downward trend. However, the progression is extremely very slow. We will also get a flow cytometry of peripheral blood as well. 11. Chronic kidney disease. Nephrology is following. 12. Anemia. Follow up on hemoglobin and hematocrit. Transfuse PRBCs as needed. 13. Deep vein thrombosis prophylaxis. Sequential compression devices. 14. Other issues: During the course of the initial part of this hospitalization, the patient's son had indicated that he wanted the patient to be transferred to [facility]. I did call [facility], and they were not accepting patients as they were filled up. cc: Francisco Kaiser MD
--- NOTE | 2018-12-14 17:06 | INFECTIOUS DISEASE PROGRESS NO ---
DATE: 12/14/2018 PRESENT ILLNESS: Mr. Smith is being treated for a scrotal cellulitis and epididymal orchitis. MEDICATIONS: He is receiving aztreonam 1 g IV every 8 hours hand clindamycin 600 mg IV every 8 hours. PHYSICAL EXAMINATION: Vital Signs: Temperature is 97.4 degrees, pulse rate 75, respiratory rate 16, blood pressure 164/77, O2 saturation is 100% on room air. General: This is a chronically ill- appearing, morbidly obese gentleman. He is lying in the bed, currently in no acute distress. HEENT: There is packing noted to the left naris. Oral mucous membranes are pink and moist. Conjunctivae are pale. Neck: Supple. Trachea is midline. Cardiovascular: Heart rate is regular. Respiratory: Lung sounds are clear to auscultation. Diminished in the bases. Abdomen: Soft, obese, and nontender. Bowel sounds are active. Genitalia: There is some mild erythema and induration noted to the right scrotum, which have improved. Neurologic: He is awake, alert, and oriented. Able to move around in the bed independently. DIAGNOSTIC STUDIES: Today his white count is 21.22, hemoglobin 9.4, platelet count 316,000. Creatinine is 2, GFR 34. Blood and urine cultures have shown no growth. No imaging reports today; however, yesterday, his chest x-ray showed mild cardiomegaly with no infiltrates. ASSESSMENT AND PLAN: Mr. Smith is being treated for scrotal cellulitis and epididymal orchitis. He is receiving aztreonam and clindamycin which we will continue. We will change clindamycin dosage to oral rather than IV and continue aztreonam at a renally modified dose due to his acute kidney injury on chronic kidney disease stage 3. The patient states he is doing somewhat better today. He is awaiting ENT arrival to remove packing from his left naris. These plans have been discussed with and recommended by Dr. Nguyen. COMORBIDITIES: For Mr. Smith include: 1. Acute on chronic kidney disease. 2. Congestive heart failure. 3. Diabetes mellitus. 4. Chronic obstructive pulmonary disease. 5. Atrial fibrillation. 6. Anemia. 7. Morbid obesity. Dictated by JOCE Peterson for Dheeraj Nguyen MD This chart was documented by, JOCE Peterson and accurately reflects the services performed, treatment plan and medical decisions as attested by the providers signature Dheeraj Nguyen MD. cc: Dheeraj Nguyen MD [facility]
[2018-12-14] MEDS ORDERED: CLEOCIN PO SCH (20:00)
[2018-12-14] MEDS: XANAX PO PRN (21:52)
[2018-12-14] MEDS: ZOCOR PO SCH (21:53)
[2018-12-14] MEDS: CLEOCIN PO SCH (21:53)
[2018-12-15] MEDS: DUONEB (A & A) INH SCH ×7 (03:25→23:20)
[2018-12-15] MEDS: NORCO-7.5 PO PRN ×2 (04:09→11:43)
[2018-12-15] MEDS: CLEOCIN PO SCH ×3 (04:10→20:49)
[2018-12-15] MEDS: AZACTAM 1 GM in NS 50 ML IV SCH ×3 (04:12→18:34)
[2018-12-15] MEDS: HUMULIN R SUBQ SCH ×4 (06:12→22:13)
[2018-12-15] MEDS: SYNTHROID PO SCH (06:20)
[2018-12-15 07:27] LABS: BASO# 0.04 X1000 (0.0-0.2); BASO% 0.2 % (0.0-0.8); EOS# 0.74 X1000 (0.0-0.7); EOS% 3.3 % (0.0-10.0); HEMATOCRIT 28.1 % (42.0-52.0); HEMOGLOBIN 9.4 g/dL (14.0-18.0); IMM GRAN# 0.67 X1000 (0.0-0.04); LYMPH# 1.59 X1000 (1.2-3.4); MCHC 33.5 g/dL (33-37); MCV 92.7 FL (81-99); MONO# 1.86 X1000 (0.11-0.59); MONO% 8.2 % (1.7-9.3); MPV 9.1 FL (7.4-10.4); NEUT# 17.75 X1000 (1.4-6.5); NEUT% 78.3 % (42.2-75.2); PLT 308 X1000 (130-400); RBC 3.03 XMIL (4.7-6.1); RDW 12.8 % (11.5-14.5); WBC 22.65 X1000 (4.8-10.8)
[2018-12-15 07:56] LABS: ALBUMIN 2.7 g/dL (3.5-5.0); CALCIUM 8.2 mg/dL (8.8-10.2); CREATININE 1.9 mg/dL (0.7-1.2); PHOSPHORUS 3.5 mg/dL (2.7-4.5); POTASSIUM 3.8 mmol/L (3.5-5.1)
[2018-12-15] MEDS: LASIX IV SCH (10:21)
[2018-12-15] MEDS: VIIBRYD PO SCH (10:22)
[2018-12-15] MEDS: VITAMIN D PO SCH (10:23)
[2018-12-15] MEDS: ZYRTEC PO SCH (10:23)
[2018-12-15] MEDS: ICAR-C PO SCH (10:23)
[2018-12-15] MEDS: ASPIRIN EC PO SCH (10:23)
[2018-12-15] MEDS: COREG PO SCH ×2 (10:23→20:49)
[2018-12-15] MEDS: ULORIC PO SCH (10:23)
--- NOTE | 2018-12-15 12:07 | NEPHROLOGY PROGRESS NOTE ---
DATE: 12/15/2018 DATE AND TIME SEEN: 12/15/2018 is 0635. SUBJECTIVE: Mr. Smith is resting quietly in bed. His head of the bed is elevated. He states that he is breathing just a little bit better than yesterday. His production of his cough is less purulent and frequent. OBJECTIVE: MOST RECENT VITAL SIGNS: Temperature 98.3 degrees, blood pressure 141/76, heart rate 75, respirations 16. He is currently on room air, last recorded saturation 100%. He has worn his BiPAP during the night. He has had 50 mL in, he has had 2250 mL out to void. He is in a -8 L fluid balance. LABORATORY DATA: Sodium 134, potassium 3.8, chloride 99, CO2 24, BUN 56, creatinine 1.9, glucose 78. His anion gap is 11, his calcium is 8.2. Phosphorus 3.5, albumin 2.5. White count 22.65, hemoglobin 9.4, hematocrit 28.1, with a platelet count of 308,000. PHYSICAL EXAMINATION: General: This is a 63-year-old elderly male. He is resting quietly in bed. He appears chronically ill. No acute distress. Skin: Warm and dry. HEENT: Normocephalic, atraumatic. Conjunctivae pale. He has SINAI. Mucous membranes are dry. Neck: Supple. Trachea midline. Unable to determine JVD in the upright position. Cardiovascular: Regular rate and rhythm. He is without murmur or gallop. Lungs: Distant lung sounds. He remains on O2 support. Occasional coarse breath sounds auscultated. Abdomen: Obese, large, round, soft, nontender. Positive bowel sounds. Genitourinary: Not inspected. The patient has had adequate urine out that has been documented with good response from his diuretics. Extremities: Remain with 2+ lower extremity edema. Neurological: Alert and oriented x2. ASSESSMENT AND PLAN: 1. Acute kidney injury on chronic kidney disease stage 3. Patient's baseline creatinine is 1.5 to 1.6. His creatinine today is down to 1.9. Adequate urine output documented. We will continue to monitor and follow. The patient's primary generator technician is Dr. Warren in [place], to be seen with follow-up after discharge. 2. Electrolytes and acid-base balance. These remain acceptable. 3. Anemia. This is low but stable. 4. Leukocytosis. This continues to be followed by primary care. 5. Congestive heart failure with exacerbation. Patient remains on Lasix 80 IV daily. I would like to thank you for allowing us to follow with this patient. Dictated by JOCE Vela for Aris Durán MD Face to face encounter, data reviewed, discussed with Ramses Joseph on 12/15/18. I agree with the above assessment and plan of care. cc: JOCE Vela MD [facility]
--- NOTE | 2018-12-15 14:57 | PROGRESS NOTE ---
DATE: 12/15/2018 SUBJECTIVE: This morning Mr. Smith refers to be hurting some especially in the left lower abdomen and in the scrotum. He said he is not able to pee as much as he would want to. OBJECTIVE: Vital Signs: Blood pressure is 132/71, pulse 73, respirations 20, and temperature 98.1 degrees. General: Mr. Smith is a 63-year-old morbidly obese, male. He is in bed. BMI is 46.5. He was not in any cardiopulmonary distress. Mucosa is pink and moist. Anicteric. Acyanotic. Neck: Supple. Chest: Air entry was bilaterally reduced. There are both crackles in lung hernandez. Cardiovascular: Regular rate and rhythm. Abdomen: Soft and distended. There is some tenderness in the lower abdomen, especially to the left side. Scrotum is erythematous and also tender palpating the intrascrotal structures. Extremities: About 2+ pedal edema. 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 LABORATORY DATA: WBC is 22.65, hemoglobin 9.4, and platelet count of 300,000. Chemistry is also reviewed. Creatinine is down to 1.9. Urine output was 1800. Patient has a total negative balance of 8681 during the hospital course. MEDICATIONS: All have been reviewed. ASSESSMENT: 1. Fluid overload presumably due to congestive heart failure with preserved ejection fraction. 2. Chronic atrial fibrillation. We will continue with beta cayden. 3. Coronary artery disease status post multiple sten on Brilinta. 4. COPD. Stable 5. Morbid obesity with sleep apnea and obesity hypoventilation syndrome. 6. Scrotal cellulitis with epididymal orchitis. The patient is on aztreonam. He is being followed up by both Urology and ID. Will do CT pelvic due to pains at the perineum. 7. Acute on chronic renal failure. We will continue to observe. cc: Slim Montejo MD [facility]
[2018-12-15] MEDS: TYLENOL PO PRN ×2 (15:55→22:04)
--- NOTE | 2018-12-15 16:33 | Diag Imaging Result Doc PS360 ---
CT ABDOMEN/PELVIS W/O CONTRAST - 12/15/2018 INDICATION: Scrotal/rectal abcess COMPARISON: 12/08/2018 FINDINGS: There has been increase in size of the indeterminate fluid collection in the posterior inferior right side of the scrotum. This measures 11 x 2 cm. There is worsening ill-defined edema/inflammation of the right scrotum and right gluteal fold. There is no perirectal abnormality. Stable significant body wall edema in the abdomen and pelvis. No soft tissue gas or radiodense foreign body. The urinary bladder is very distended. There is new bilateral hydronephrosis right greater than left. IMPRESSION: 1. Worsening indeterminate scrotal fluid collection on the right side. 2. Worsening ill-defined inflammation of the right scrotum and right buttock. 3. Severe distention of the urinary bladder with secondary bilateral hydronephrosis. Concerning for urinary bladder outlet obstruction. Egan catheter placement recommended. This exam was performed using automated exposure control, adjustment of mA or kV according to patient size, and/or use of iterative reconstruction technique Electronically signed by Familia Rueda 12/15/2018 4:31 PM
[2018-12-15] MEDS: ZOCOR PO SCH (20:49)
[2018-12-15] MEDS: XANAX PO PRN (20:54)
[2018-12-16] MEDS: NORCO-7.5 PO PRN ×3 (01:17→13:11)
[2018-12-16] MEDS: DUONEB (A & A) INH SCH ×6 (03:25→23:18)
[2018-12-16] MEDS: CLEOCIN PO SCH ×2 (07:00→12:12)
[2018-12-16] MEDS: SYNTHROID PO SCH (07:00)
[2018-12-16] MEDS: AZACTAM 1 GM in NS 50 ML IV SCH ×3 (07:01→18:21)
[2018-12-16] MEDS: HUMULIN R SUBQ SCH ×4 (07:03→20:40)
[2018-12-16 08:07] LABS: CALCIUM 8.6 mg/dL (8.8-10.2); CREATININE 1.7 mg/dL (0.7-1.2); PHOSPHORUS 3.4 mg/dL (2.7-4.5); POTASSIUM 4.4 mmol/L (3.5-5.1)
[2018-12-16 08:09] LABS: BASO# 0.04 X1000 (0.0-0.2); BASO% 0.2 % (0.0-0.8); EOS# 0.65 X1000 (0.0-0.7); HEMATOCRIT 30.3 % (42.0-52.0); HEMOGLOBIN 10.1 g/dL (14.0-18.0); IMM GRAN# 0.57 X1000 (0.0-0.04); IMM GRAN% 2.6 % (0.0-0.5); LYMPH# 1.65 X1000 (1.2-3.4); LYMPH% 7.6 % (20.5-51.1); MCH 30.9 PG (27-31); MCHC 33.3 g/dL (33-37); MCV 92.7 FL (81-99); MONO# 1.65 X1000 (0.11-0.59); MONO% 7.6 % (1.7-9.3); MPV 8.9 FL (7.4-10.4); NEUT# 17.27 X1000 (1.4-6.5); PLT 336 X1000 (130-400); RBC 3.27 XMIL (4.7-6.1); RDW 12.9 % (11.5-14.5); WBC 21.83 X1000 (4.8-10.8)
[2018-12-16 08:19] LABS: BANDS 2 % (0-1); LYMPHS 4 % (21-51); MONO 6 % (1-9); SEGS 88 % (42-75)
--- NOTE | 2018-12-16 08:36 | NEPHROLOGY PROGRESS NOTE ---
DATE: 12/16/2018 SUBJECTIVE: He is lying on his side. He states he does not feel well today. Some difficulty with voiding and states his overall urine output has been low. He still has some shortness of breath. Still has nasal packing in place. OBJECTIVE: Vital Signs: Blood pressure 128/62, heart rate 73, respiration 18. Afebrile. Intake 500 mL. Output 1.5 L. General: Obese, white male, lying on his right side. No acute distress. Skin: Warm and dry. Neck: Neck veins are not appreciated. Heart: Regular, distant. Lungs: Equal. No crackles or wheezes. Abdomen: Soft, obese, nontender. Bowel sounds present. Extremities: With 1+ edema. No clubbing or cyanosis. IMPRESSION: Acute kidney injury overlying chronic kidney disease. Baseline creatinine is approximately 1.5. His creatinine is down to 1.7 and BUN is improving daily as well. Acceptable urine output. We will check a postvoid residual today. Otherwise electrolytes/acid base/anemia/hypertension all in target. cc: Aris Durán MD
[2018-12-16] MEDS: LASIX IV SCH (08:58)
[2018-12-16] MEDS: ULORIC PO SCH (08:59)
[2018-12-16] MEDS: ZYRTEC PO SCH (08:59)
[2018-12-16] MEDS: ICAR-C PO SCH (08:59)
[2018-12-16] MEDS: ASPIRIN EC PO SCH (08:59)
[2018-12-16] MEDS: COREG PO SCH ×2 (08:59→20:36)
[2018-12-16] MEDS: VITAMIN D PO SCH (08:59)
[2018-12-16] MEDS: VIIBRYD PO SCH (08:59)
--- NOTE | 2018-12-16 13:21 | PROGRESS NOTE ---
DATE: 12/16/2018 SUBJECTIVE: I was asked to see Mr. Smith again secondary to possibility of worsening cellulitis. I saw him late last week with right epididymoorchitis and cellulitis of the scrotum. At that time, he appeared not to worsened and he felt very strongly against intervention. With his multiple comorbidities and inability to come off Brilinta at that time, surgical intervention was not a suitable option. In the interim, he developed epistaxis and he has been off his anticoagulation except for aspirin. He reports that his scrotum and perineum does not feel any worse. He denies drainage on the sheets. He was seen by hospice colleagues as well as Radha with wound care, and was found to have a concerning spot on the perineum radiating toward the buttock. He underwent CT scan on 12/15/2018 which revealed increase in a fluid collection on the right scrotum as well as extension towards the right buttock. OBJECTIVE: Temperature 98, P 73, BP 132/69. In general, no acute distress. HEENT is normocephalic, atraumatic. Abdomen is obese, nontender palpation. Back with no CVA tenderness. has redundant foreskin. Penile shaft is without lesions, foreskin retracts. Left testis is nontender to palpation. Normal size. No masses palpable, right testis is edematous as has been in the past consistent with epididymoorchitis. At this time in addition to induration along his right inguinal area and perineum. There appears to be fluctuance. There was also a black discoloration of the perineum toward the buttock which is consistent with early necrosis. There is no drainage noted. There is no crepitus. PERTINENT LABORATORY DATA: White cell count is 22,000 which is stable, and a creatinine is 1.7 which has improved. PERTINENT IMAGES: CT of the abdomen and pelvis per above. ASSESSMENT/PLAN: A 63-year-old male with multiple medical comorbidities who had right epididymoorchitis and cellulitis which now has appeared to turn into abscess. He does not have Angela's gangrene at this point, but I am concerned about the fluctuance and the necrotic- appearing area over his posterior perineum. I have discussed with the patient at this time, he would definitely benefit from incision and drainage of the inguinal and perineal abscess. I have discussed with him that his major risk would be from anesthesia given his multiple comorbidities. We discussed that he would likely have a [place] drain after the procedure, and will need a wound packing while healing. He voiced understanding and wants to think about it. Discussed the risks of the procedure including, but not limited to, bleeding, worsening infection, inability to clear up old infection, and need for additional intervention was explained. PLAN: 1. I strongly recommended for patient to undergo incision and drainage of perineal and right scrotal abscess. 2. He wants to talk it over the family and let us know later in the afternoon. 3. If he decides to proceed, I will tentatively add him on for tomorrow 12/17/2018 for incision and drainage of scrotal and perineal abscess. cc: Bryce Gonzalez MD
[2018-12-16] MEDS: CLINDAMYCIN 600 MG/NS 600 MG/50 ML IVPB IV SCH (17:49)
[2018-12-16] MEDS: PRILOSEC PO SCH (17:49)
[2018-12-16] MEDS ORDERED: BASAGLAR SUBQ ONE (18:06)
--- NOTE | 2018-12-16 18:33 | PROGRESS NOTE ---
DATE: 12/16/2018 SUBJECTIVE: Today, Mr. Smith continues to be feeling very uncomfortable. He has not had a bowel movement and though he is making urine, he still complains that his lower abdomen feels full. OBJECTIVELY: Vitals: Blood pressure is 128/70, pulse of 77, respirations 18, temperature is 98.3. General exam: Mr. Smith is a 63-year-old, male. He is in bed, not in any cardiopulmonary distress. HEENT: Mucosa is pink and moist. Anicteric. Acyanotic. Neck: Supple. Chest: Air entry is bilaterally reduced. There are still some crackles posteriorly. Cardiovascular: Regular rate and rhythm. GI: Abdomen is soft, is distended. Tenderness in the lower abdomen. : Scrotum has some erythematous changes and there is some tenderness on the palpation of the intrascrotal structures. There is also some induration along the right inguinal area and perineum. There appears to be some fluctuance. There is a black discoloration of the perineum, towards the buttocks, with signs of early necrosis. DIAGNOSTICS: CT scan of the abdomen and pelvis yesterday did show worsening interomedial scrotal fluid collection on the right. There is also worsening ill-defined inflammation of the right scrotum and right buttocks. There is severe distention of the urinary bladder with secondary bilateral hydronephrosis. ASSESSMENT: 1. Scrotal cellulitis with epididymal orchitis. 2. Buttocks cellulitis with possible abscess. The patient is being evaluated by Urology and there is a plan for possible intervention tomorrow. 3. Dilated bladder with bilateral hydronephrosis. The patient continues to be making urine, but I think a Egan catheter will be beneficial at this point. I have discussed with Dr. Gonzalez and there is a plan to put one in tomorrow when they are having the surgery. 4. Acute on chronic renal failure. 5. Chronic atrial fibrillation. Patient is on a beta cayden. 6. History of coronary artery disease, status post multiple stents. The patient is on Brilinta. 7. Fluid overload due to congestive heart failure with preserved ejection fraction. 8. Morbid obesity with BMI of 46.5. 9. Uncontrolled diabetes mellitus. We will start the patient on long-term insulin as well as padding to cover meals. PLAN: So, in general, Mr. Smith refers to be doing fairly okay. His CT scan shows worsening of the perineum inflammation. There is a plan to take him to the OR tomorrow. We are going to continue with the current antibiotics and the glucose control and follow up with further recommendations from the other subspecialties. cc: Slim Montejo MD
[2018-12-16] MEDS ORDERED: INSULIN PEN NEEDLES ONE (18:47)
--- NOTE | 2018-12-16 18:59 | INFECTIOUS DISEASE PROGRESS NO ---
DATE: 12/16/2018 PRESENT ILLNESS: The patient has a scrotal cellulitis and epididymal orchitis. He also recently, on CT scan, was found to have worsening scrotal fluid, worsening right scrotal and right buttock fluid as well. There is also bladder distention and hydronephrosis. MEDICATIONS: The patient is receiving aztreonam and clindamycin. PHYSICAL EXAMINATION: Vital Signs: Temperature is 98.3 degrees, pulse 77, respirations 18, blood pressure 128/70. General: This is a somewhat ill-appearing, morbidly obese male. He is in no acute distress. He was sitting up in his bed initially, and then he went back lying down. Head, Eyes, Ears, Nose, Throat: No drainage noted from the nose or ears. He does not have any white patches in his mouth. Neck: No pain with movement. Cardiovascular: Heart rate is regular. Lungs: Clear to auscultation. Abdomen: Soft and nontender.. Pelvic: The patient's scrotum appears to have enlarged. It is erythematous. There is also what appears to be enlargement of the epididymis and testicle. The patient has erythema and swelling in the perineum as well. There is erythema and swelling in the perineum as well. LAB AND X-RAY: CT scan was as mentioned above. The CBC shows a white count of 21,830, hemoglobin 10.1, and platelet count 336,000 creatinine is 1.7. GFR is 41. ASSESSMENT AND PLAN: The patient's infection appears to be getting worse. Dr. Gonzalez has been following the patient, and he plans to take the patient for surgery either tomorrow or the next day. I have increased clindamycin to 600 mg intravenously every 8 hours. The patient wanted some Protonix. I went ahead and ordered it. COMORBIDITIES: He is obese. He has congestive heart failure, acute on chronic renal disease, diabetes mellitus, chronic obstructive pulmonary disease, morbid obesity, and anemia. cc: Dheeraj Nguyen MD
[2018-12-16] MEDS: ZOCOR PO SCH (20:36)
[2018-12-16] MEDS: NEURONTIN PO SCH (20:37)
[2018-12-16] MEDS: XANAX PO PRN (22:24)
[2018-12-16] MEDS: NORCO-10 PO PRN (22:24)
[2018-12-17] MEDS: CLINDAMYCIN 600 MG/NS 600 MG/50 ML IVPB IV SCH ×3 (00:47→17:08)
[2018-12-17] MEDS: DUONEB (A & A) INH SCH ×6 (03:08→23:50)
[2018-12-17] MEDS: AZACTAM 1 GM in NS 50 ML IV SCH ×3 (03:55→17:47)
[2018-12-17] MEDS: PRILOSEC PO SCH (07:26)
[2018-12-17] MEDS: SYNTHROID PO SCH (07:26)
[2018-12-17] MEDS: HUMULIN R SUBQ SCH ×4 (07:28→21:07)
[2018-12-17 08:32] LABS: ALBUMIN 2.5 g/dL (3.5-5.0); CALCIUM 8.3 mg/dL (8.8-10.2); CREATININE 1.6 mg/dL (0.7-1.2); PHOSPHORUS 3.1 mg/dL (2.7-4.5); POTASSIUM 4.1 mmol/L (3.5-5.1)
[2018-12-17] MEDS: ASPIRIN EC PO SCH (09:02)
[2018-12-17] MEDS: VITAMIN D PO SCH (09:03)
[2018-12-17] MEDS: ULORIC PO SCH (09:03)
[2018-12-17] MEDS: ZYRTEC PO SCH (09:03)
[2018-12-17] MEDS: VIIBRYD PO SCH (09:03)
[2018-12-17] MEDS: ICAR-C PO SCH (09:04)
[2018-12-17] MEDS: NEURONTIN PO SCH ×2 (09:04→21:03)
[2018-12-17] MEDS: HUMALOG SUBQ SCH ×4 (09:05→17:06)
[2018-12-17] MEDS: COREG PO SCH ×2 (09:05→21:02)
[2018-12-17] MEDS: BASAGLAR SUBQ SCH (09:05)
[2018-12-17] MEDS: LASIX IV SCH ×2 (09:10→09:17)
[2018-12-17] MEDS ORDERED: VERSED ONE (09:11)
[2018-12-17] MEDS ORDERED: FENTANYL ONE (09:11)
[2018-12-17] MEDS ORDERED: DIPRIVAN 1% ONE (09:12)
[2018-12-17] MEDS ORDERED: XYLOCAINE-MPF 2% ONE (09:19)
[2018-12-17] MEDS ORDERED: QUELICIN (DOSE) ONE (09:19)
[2018-12-17] MEDS ORDERED: NEOSPORIN G.U. IRRIGANT ONE (10:15)
[2018-12-17 11:04] LABS: URINE SOURCE CATH
[2018-12-17] MEDS: DILAUDID ONE ×2 (11:05→11:10)
[2018-12-17 11:09] LABS: BILIRUBIN URINE NEGATIVE (NEGATIVE); BLOOD URINE SMALL (NEGATIVE); COLOR YELLOW; GLUCOSE URINE 100 mg/dL (NEGATIVE); KETONE URINE NEGATIVE (NEGATIVE); LEUKOCYTES URINE NEGATIVE (NEGATIVE); NITRITE URINE NEGATIVE (NEGATIVE); PROTEIN URINE NEGATIVE (NEGATIVE); SP GRAVITY URINE 1.002; TURBIDITY URINE CLEAR (CLEAR); UROBILINOGEN URINE NORMAL (NORMAL)
[2018-12-17 11:10] LABS: UR EPITHELIAL CELLS <10 /HPF (<10); URINE BACTERIA NEGATIVE /HPF; URINE RBC <10 /HPF (<10); URINE WBC <10 /HPF (<10)
--- NOTE | 2018-12-17 16:32 | PROGRESS NOTE ---
DATE: 12/17/2018 SUBJECTIVE: This morning, Mr. Smith refers to be doing fairly okay. He just came from surgery. OBJECTIVELY: Vitals: Blood pressure is 125/66, pulse of 98, respiration is 17, temperature 97.1 degrees. General: Mr. Smith is a 63-year-old male. He is in bed. He is not in any cardiopulmonary distress. Mucosa is pink and moist. Anicteric. Acyanotic. Neck is supple, no JVD. Respiratory System: There is good air entry bilateral. There are also positive crepitations posteriorly. Cardiovascular: Regular rate and rhythm. No murmurs, no rubs, no gallops. Gastrointestinal: Abdomen is soft, distended, nontender. There is a Egan catheter in place. There is also dressing over the entire perineum so I could not get to see. The dressing is soaked with blood, and the nurses are changing it now. Extremities: There is still about 2+ pedal edema. LABORATORY DATA: No CBC today. Chemistry has been reviewed. Creatinine is down to 1.6, glucose is 250. ASSESSMENT: 1. Scrotal cellulitis with epididymoorchitis and gluteal cellulitis with possible abscess. Patient is status post urological intervention, and we are pending the official report to see what was done. 2. Bilateral hydronephrosis with dilated bladder, suggestive of obstructive uropathy. A Egan catheter has been inserted during surgery. I understand more than 2000 of urine just was immediately evacuated after insertion. 3. Acute on chronic renal failure. Creatinine continues to be on a downward trend. 4. Chronic atrial fibrillation. Patient is on beta cayden. 5. History of coronary artery disease status post multiple stents in the past. The patient is on Brilinta. 6. Fluid overload secondary to congestive heart failure with preserved ejection fraction. We will continue with the diuretic therapy. 7. Morbid obesity with Body Mass Index (BMI) of 46.5. 8. Uncontrolled diabetes mellitus. Patient is currently on insulin regimen. We will continue to titrate. In general, Mr. Smith had a urological intervention today, and we are still pending the official report. There is also a Egan catheter in place. He continues to make adequate urine. We will continue with the current antibiotic coverage, insulin, and other medications that the patient is on. DISPOSITION: Disposition is going to depend on the rest of his hospital course, and we are pending the cultures that were taken during surgery. cc: Slim Montejo MD
--- NOTE | 2018-12-17 17:15 | NEPHROLOGY PROGRESS NOTE ---
DATE: 12/17/2018 TIME SEEN: 0810 SUBJECTIVE: Mr. Simth is resting quietly in bed. He denies any chest pain or increased work of breathing. States that he is feeling better. OBJECTIVE: Vital Signs: Temperature 97.7 pressure 135/58, heart rate 70, respirations 16, he is currently on room air, his last recorded saturation is 96%. Intake and output: He has had 580 in, 2125 out to void. LABORATORY DATA: Sodium 134, potassium 4.1, chloride 99, CO2 of 22, BUN 43, creatinine 1.6, glucose of 250, the patient's anion gap is 13, calcium 8.3, phosphorus 3.1, albumin 2.5. Patient has a previous hemoglobin of 10.1. PHYSICAL EXAMINATION: This is a 63-year-old white male. He is currently resting in bed. He is in no acute distress. His skin is warm and dry.HEENT: Normocephalic, atraumatic. Conjunctiva is pale pink. He has SINAI. Mucous membranes are moist. Neck is supple. Trachea midline. No evidence of JVD. Cardiovascular: Regular rate and rhythm. Distant heart sounds present. Lungs are clear to auscultation anterior, equal excursion. He is currently on room air. Abdomen is soft, nontender. Positive bowel sounds. Genitourinary: Not inspected. Patient has been voiding, adequate amount documented. Extremities: Continues with trace to 1+ lower extremity edema. Neurological: Alert and oriented x3. ASSESSMENT AND PLAN: Acute kidney injury overlying chronic kidney disease stage 3. Patient's baseline creatinine is 1.5. He is down to 1.6 from 1.7. He has had acceptable urine output. We will sign off at this time and remain available if indicated during the rest of his hospital stay. I would like to thank you for allowing us to follow with this patient. Dictated by JOCE Vela for Aris Durán MD Face to face encounter, data reviewed, discussed with Ramses Joseph on 12/18/18. I agree with the above assessment and plan of care. cc: JOCE Vela MD [facility]
[2018-12-17] MEDS: NORCO-10 PO PRN (17:48)
[2018-12-17] MEDS: DILAUDID IV SCH (21:03)
[2018-12-17] MEDS: ZOCOR PO SCH (21:03)
[2018-12-18] MEDS: NORCO-10 PO PRN ×3 (00:29→19:09)
[2018-12-18] MEDS: CLINDAMYCIN 600 MG/NS 600 MG/50 ML IVPB IV SCH ×3 (00:30→19:10)
[2018-12-18] MEDS: AZACTAM 1 GM in NS 50 ML IV SCH ×3 (01:23→21:43)
[2018-12-18] MEDS: XANAX PO PRN (02:52)
[2018-12-18] MEDS: DUONEB (A & A) INH SCH ×6 (03:48→23:42)
[2018-12-18] MEDS: PRILOSEC PO SCH (06:14)
[2018-12-18] MEDS: SYNTHROID PO SCH (06:14)
[2018-12-18] MEDS: HUMULIN R SUBQ SCH ×4 (06:14→21:47)
[2018-12-18 08:08] LABS: BASO# 0.02 X1000 (0.0-0.2); BASO% 0.1 % (0.0-0.8); EOS# 0.22 X1000 (0.0-0.7); EOS% 0.9 % (0.0-10.0); HEMATOCRIT 20.5 % (42.0-52.0); HEMOGLOBIN 6.7 g/dL (14.0-18.0); IMM GRAN# 0.27 X1000 (0.0-0.04); LYMPH# 1.59 X1000 (1.2-3.4); LYMPH% 6.2 % (20.5-51.1); MCH 30.7 PG (27-31); MCHC 32.7 g/dL (33-37); MONO% 9.3 % (1.7-9.3); MPV 9.4 FL (7.4-10.4); NEUT# 21.29 X1000 (1.4-6.5); NEUT% 82.5 % (42.2-75.2); PLT 237 X1000 (130-400); RBC 2.18 XMIL (4.7-6.1); WBC 25.79 X1000 (4.8-10.8)
[2018-12-18 08:13] LABS: ALBUMIN 2.4 g/dL (3.5-5.0); CALCIUM 7.7 mg/dL (8.8-10.2); PHOSPHORUS 3.8 mg/dL (2.7-4.5); POTASSIUM 4.2 mmol/L (3.5-5.1)
[2018-12-18 08:14] LABS: BANDS 6 % (0-1); LYMPHS 8 % (21-51); POTASSIUM 4.3 mmol/L (3.5-5.1); SEGS 86 % (42-75)
[2018-12-18] MEDS ORDERED: NEURONTIN PO SCH (09:00)
[2018-12-18] MEDS: ULORIC PO SCH (09:54)
[2018-12-18] MEDS: ICAR-C PO SCH (09:54)
[2018-12-18] MEDS: ZYRTEC PO SCH (09:54)
[2018-12-18] MEDS: COREG PO SCH ×2 (09:54→21:44)
[2018-12-18] MEDS: LASIX IV SCH (09:54)
[2018-12-18] MEDS: VITAMIN D PO SCH (09:54)
[2018-12-18] MEDS: BASAGLAR SUBQ SCH (09:55)
[2018-12-18] MEDS: VIIBRYD PO SCH (09:56)
[2018-12-18] MEDS: DILAUDID IV SCH ×2 (09:57→21:45)
[2018-12-18] MEDS: HUMALOG SUBQ SCH ×3 (09:59→17:34)
[2018-12-18] MEDS: ASPIRIN EC PO SCH (10:13)
--- NOTE | 2018-12-18 12:03 | OPERATIVE NOTE ---
PROCEDURE DATE: 12/17/2018 SURGEON: Dr. Bryce Gonzalez. PREOPERATIVE DIAGNOSIS: 1. Scrotal abscess. 2. Right epididymal orchitis. 3. Perineal abscess. PROCEDURES: Incision and debridement of extensive scrotal and perineal abscesses. INDICATIONS: A 63-year-old male with multiple medical comorbidities including significant cardiovascular disease and diabetes, who was admitted and found to have right epididymal orchitis and cellulitis. He was started on IV antibiotics, but over several days, his leukocytosis persisted and his right hemiscrotum as well as perineum have become more indurated and turned into a fluctuant area, including an approximately 3 cm area of necrosis along his perineum. He presents for incision and debridement. FINDINGS: There was copious amount of pus, approximately 3 handfuls. The material was sent off for wound culture. Copious antibiotic solution irrigation was done. Devante drain was left at the end of the case traversing the 2 incisions. DESCRIPTION OF PROCEDURE: After obtaining informed consent, the patient brought to the operating room. He was already on scheduled antibiotics. Anesthesia was administered. He was placed in lithotomy position with upper and lower extremities appropriately padded. He was prepped and draped in sterile fashion. I made a stab incision over the fluctuant area overlying the inferior portion of the right hemiscrotum as well as incision along his right perineal area where the necrotic area was seen. The surgeon's finger was used to perform deeper dissection. Copious amount of pus was seen to emanate. It was evacuated and appropriate wound cultures were obtained. I then used irrigant and copiously irrigated all aspects of the wound. Superiorly, the infection appeared to extend toward superficial inguinal ring but did not appear to involve it at the level of the ring. Posteriorly, there was no evidence of perirectal space involvement and extent of the infection at the time of surgery was to midline perineum. After copious irrigation, the necrotic edges of the perineal wound were debrided with Metzenbaum scissors. I then placed a half-inch Devante drain into the perineal incision and out of the scrotal incision. It was secured to skin with 0 silk suture. He did have mild oozing but no significant or pulsatile bleeding noted. Please note that the patient per Cardiology recommendation had to stay on aspirin, hence we expected a degree of bleeding. He was extubated after the wound was packed with normal saline-soaked gauze and 16-[place] Egan catheter was placed with return of clear urine. The Egan catheter was placed as the patient has reported progressive difficulties voiding and has had elevated postvoid residuals. He was taken to recovery for further care. ESTIMATED BLOOD LOSS: 20 mL. COMPLICATIONS: None. DISPOSITION: To PACU and subsequently floor with packing twice a day and [place] drain tube in place for now and Egan catheter in place for now. cc: Bryce Gonzalez MD
[2018-12-18] MEDS ORDERED: NS 1,000 ML ONE (13:18)
--- NOTE | 2018-12-18 16:25 | NEPHROLOGY PROGRESS NOTE ---
DATE: 12/18/2018 SUBJECTIVE: He is lying on his left side. No new complaints today. He states that his breathing is improved and he has had the packing removed from the left nostril. No nausea or vomiting. Swelling is improved. OBJECTIVE: Vital Signs: Blood pressure 114/91, heart rate 71 respirations 14, afebrile. General: No acute distress. Skin: Warm and dry. Conjunctivae are pink. Neck: Neck veins are not visible in his current position. Heart: Regular. No gallops. Lungs: Equal. No crackles or wheezes. Abdomen: Obese soft, nontender. Bowel sounds are present. Extremities: With only trace edema. No clubbing or cyanosis. IMPRESSION: Chronic kidney disease. His creatinine is up again today. This is likely from diuretic use and negative volume status. I will stop his IV Lasix and begin p.o. Lasix 40 mg daily as of tomorrow morning. Otherwise, electrolytes and acid-base are acceptable. Hemoglobin measured at 6.7 this morning. I will remeasure this and also collect a type and screen in case transfusion is required. cc: Aris Durán MD
--- NOTE | 2018-12-18 16:28 | INFECTIOUS DISEASE PROGRESS NO ---
DATE: 12/18/2018 PRESENT ILLNESS: Mr. Smith is status post incision and drainage of scrotal and perineal abscesses with placement of Devante drains x2, for scrotal cellulitis and epididymoorchitis. MEDICATIONS: He is on day 9 of aztreonam 1 g IV every 8 hours and clindamycin 600 mg IV every 8 hours. PHYSICAL EXAMINATION: Vital Signs: Temperature is 98.3 degrees, pulse rate 71, respiratory rate 18, blood pressure 114/91, O2 saturation is 91% on room air. General: This is a morbidly obese, chronically ill-appearing, middle-aged gentleman. He is lying on his left lateral side currently in mild distress due to wound care. HEENT: Atraumatic, normocephalic. Oral mucous membranes are pink and dry. Conjunctivae are pale. Neck: Supple. Trachea is midline. Cardiovascular: Heart rate and rhythm are regular. Appears to be in a sinus rhythm on the monitor. Respiratory: Lung sounds are clear to auscultation and diminished in the bases. Abdomen: Soft, obese, nontender. Bowel sounds are active. Integumentary: There are incisions with Devante drains in place to the perineum and scrotum. There was also some darkened skin to the scrotal and penile areas. There is a large amount of packing that was removed from these sites with brown/green drainage noted from the wounds. Neurologic: He is awake, alert and oriented. Able to move around in the bed with some assistance. LABORATORY AND X-RAY: Today his white count is 25.79, hemoglobin 6.7, platelet count 237,000. Creatinine is 2, GFR 34. Urinalysis done yesterday shows no bacteria and less than 10 WBCs. There are blood cultures pending. The cultures done in surgery yesterday from the perineum so far are showing no anaerobes or growth of bacteria. The Gram stain shows 2+ white blood cells. No imaging reports today. ASSESSMENT AND PLAN: Mr. Smith is status post surgery for scrotal cellulitis and epididymoorchitis. Today he is anemic and has had 2 units of blood ordered. Unfortunately, he has severe reactions to penicillins, so we will have to continue him for now on the aztreonam and clindamycin as ordered. There is some leukocytosis today. We will redraw blood work for Friday to recheck. These plans have been discussed with and recommended by Dr. Nguyen. COMORBIDITIES: Comorbidities for Mr. Smith include morbid obesity, congestive heart failure, acute kidney injury on chronic kidney disease, diabetes mellitus, COPD and anemia. Dictated by JOCE Peterson for Dheeraj Nguyen MD This chart was documented by, JOCE Peterson and accurately reflects the services performed, treatment plan and medical decisions as attested by the providers signature Dheeraj Nguyen MD. cc: Dheeraj Nguyen MD [facility]
--- NOTE | 2018-12-18 16:40 | PROGRESS NOTE ---
DATE: 12/18/2018 SUBJECTIVE: Today Mr. Smith refers to be doing a lot better. Two sons were at the bedside at the time of the encounter. OBJECTIVE: Vital signs: Blood pressure was 125/103, pulse of 73, respirations 18, temperature is 98.1 degrees, the patient was saturating 100% on nasal cannula. General: Mr. Smith is a 63-year- old morbidly obese male. He is in bed. No distress. Mucosa is pink and moist. Anicteric. Acyanotic. Neck is supple. Chest: Air entry was bilaterally reduced, but there were no crackles, no crepitations. Cardiovascular: Regular rate and rhythm. No murmurs, no rubs, no gallops Gastrointestinal: Abdomen is soft. It is distended, but nontender. Egan catheter is in place. Perineum is covered with sterile dressing. Central Nervous System: Patient is awake, alert, and oriented. Extremities: About 2+ pedal edema. DIAGNOSTIC STUDIES: WBC is 25.79, hemoglobin is 6.7, platelet count of 237,000. Chemistry is also reviewed. Sodium is 132, potassium 4.2, chloride 99, bicarbonate is 24, creatinine is 2.0. So far blood cultures have been unremarkable. OPERATIVE REVIEW: The operative report yesterday did show that there was copious pus, about 3 handsful in the perineum. The procedure that was done was incision and debridement of extensive scrotal and perineal abscess. ASSESSMENT: 1. Sepsis secondary to scrotal and perineal abscess. Patient is status post incision and drainage. Urology is on board. We will be pending the cultures from the surgery specimen. 2. Bilateral hydronephrosis with dilated bladder, suggestive of obstructive uropathy. Egna catheter is in place. Patient is making adequate urine. 3. Acute on chronic renal failure. Creatinine is stable at 2.2. We will continue following. Nephrology is on board. 4. Chronic atrial fibrillation. The patient is currently on rate control. 5. History of coronary artery disease status post multiple stents in the past. The patient is currently asymptomatic. He is on Brilinta. 6. Fluid overload secondary to congestive heart failure with preserved ejection fraction. We will continue with the diuretic therapy. 7. Morbid obesity with Body Mass Index (BMI) of 46.5. 8. Diabetes mellitus. We will continue with the insulin regimen. In general Mr. Smith is fairly stable today. He is day 1 post incision and drainage. Cultures from the surgery specimen are still pending. We will continue with the current antibiotic coverage which is aztreonam and clindamycin. The patient is being followed up by Infectious Disease, Urology, and Nephrology. cc: Slim Montejo MD
--- NOTE | 2018-12-18 17:10 | PROGRESS NOTE ---
DATE: 12/18/2018 SUBJECTIVE: Mr. Smith reports had a decent night overnight. He denies any pain. My partner, Dr. Hopson, was called around 6:30 this morning by nursing staff with concern for appearance of his penile shaft. He denies penile pain. He has a Egan catheter in place draining straw-colored urine. OBJECTIVE: Vital Signs: Temperature 97.9, pulse 73, blood pressure 110/52. General: No acute distress. Resting with a sleep apnea machine on. Abdomen: Protuberant, nontender to palpation. Genitourinary: He has a Egan catheter in place. His penile shaft is edematous with ecchymosis of his scrotum, perineum and 2/3 of the penile shaft. There were 3 horizontal lacerations that are superficial and appeared to have arisen from penile shaft swelling after surgery. There was no evidence of necrosis of the shaft, scrotum or perineum at the time of examination by me. He has Devante drain in place and packing with small serosanguineous amount of discharge on ABD pad noted. No evidence of purulence upon examination. Again no evidence of necrosis in the perineum or scrotum noted. PERTINENT LABORATORY DATA: White cell count of 25,000, hematocrit 21. Creatinine is 2.0. ASSESSMENT AND PLAN: A 63-year-old male, status post incision and debridement of perineal and scrotal abscesses. He has penile ecchymosis with a couple of superficial lacerations from the penile edema. The ecchymosis is because the patient has been on aspirin throughout the entire hospitalization and was on aspirin when he was operated on, hence he has had appropriate bruising postop. He denies pain. I reassured the patient that the swelling will go down. I have discussed the patient with Radha Phillips with wound care and our agreement was for him to have wound care with dressing changes twice a day and keep Devante drain in until Friday, and we will remove the Devante drain on Friday morning and likely discontinue packing pending he makes progress. PLAN: 1. Keep Egan catheter in for now to gravity drainage. 2. I recommend dressing changes twice a day to the perineum and scrotum. 3. Will revisit whether Stuart drain can come out and dressing changes could stop on Friday. cc: Bryce Gonzalez MD
[2018-12-18] MEDS: ZOCOR PO SCH (21:44)
[2018-12-19] MEDS: CLINDAMYCIN 600 MG/NS 600 MG/50 ML IVPB IV SCH ×3 (00:39→18:01)
[2018-12-19] MEDS: AZACTAM 1 GM in NS 50 ML IV SCH ×3 (01:21→20:30)
[2018-12-19] MEDS: NORCO-10 PO PRN ×5 (02:27→20:31)
[2018-12-19] MEDS: DUONEB (A & A) INH SCH ×6 (03:36→23:40)
[2018-12-19] MEDS: SYNTHROID PO SCH (06:19)
[2018-12-19] MEDS: HUMULIN R SUBQ SCH ×4 (06:19→20:32)
[2018-12-19] MEDS: PRILOSEC PO SCH (06:20)
[2018-12-19 07:43] LABS: HEMATOCRIT 22.6 % (42.0-52.0); HEMOGLOBIN 7.5 g/dL (14.0-18.0)
[2018-12-19 08:04] LABS: ALBUMIN 2.3 g/dL (3.5-5.0); CALCIUM 7.8 mg/dL (8.8-10.2); CREATININE 2.3 mg/dL (0.7-1.2); POTASSIUM 4.3 mmol/L (3.5-5.1)
[2018-12-19] MEDS: HUMALOG SUBQ SCH ×3 (08:55→16:58)
[2018-12-19] MEDS: BASAGLAR SUBQ SCH (08:55)
[2018-12-19] MEDS: ZYRTEC PO SCH (08:59)
[2018-12-19] MEDS: VITAMIN D PO SCH (08:59)
[2018-12-19] MEDS: ICAR-C PO SCH (09:00)
[2018-12-19] MEDS: ASPIRIN EC PO SCH (09:00)
[2018-12-19] MEDS: VIIBRYD PO SCH (09:00)
[2018-12-19] MEDS: COREG PO SCH ×2 (09:00→20:31)
[2018-12-19] MEDS ORDERED: LASIX PO SCH (09:00)
[2018-12-19] MEDS: ULORIC PO SCH (09:00)
[2018-12-19] MEDS: DILAUDID IV SCH ×2 (10:33→20:31)
--- NOTE | 2018-12-19 11:03 | PROGRESS NOTE ---
DATE: 12/19/2018 SUBJECTIVE: This morning, Mr. Smith refers to be doing fairly okay, is not bleeding that much in the wound as before. OBJECTIVE: Vital signs: Blood pressure is 110/62, pulse is 79, respirations 18, temperature is 98.3 degrees. General: Mr. Smith is a 63-year-old male. He is in bed. He is not in any cardiopulmonary distress. HEENT: Mucosa is pink and moist. Anicteric. Acyanotic. Neck: Supple. Chest: Air entry is bilaterally reduced. Just a few crackles posteriorly but for most part no wheezing. Cardiovascular: Regular rate and rhythm. No murmurs, no rubs, no gallops. Gastrointestinal: Abdomen is soft, is distended but nontender. Genitourinary: There is a Egan catheter in place. There is a small, about 2 cm surgical wound on the left perineal region which is not actively bleeding, and I did not see any pus. Central nervous system: Patient is awake, alert, oriented. There is no focal neurological deficit. LABORATORY DATA: Hemoglobin is 7.5. Chemistry is also reviewed. Sodium is 137, potassium is 27, potassium is 4.3. Creatinine is up to 2.3. BUN is also creeping up to 5.3. The patient is negative balance of 14,511. ASSESSMENT: 1. Sepsis secondary to scrotal and perineal abscess. Patient is status post incision and drainage. Urology is on board. 2. Bilateral hydronephrosis with dilated bladder suggestive of obstructive uropathy. Egan catheter is in place. The patient is making adequate urine. 3. Acute on chronic renal failure. Creatinine continues to go up. The patient is currently negative balance in fluid status, so I have discontinued his Lasix for this morning. 4. Chronic atrial fibrillation. Currently rate controlled. 5. History of coronary artery disease status post multiple stents in the past. Currently asymptomatic. 6. Fluid overload secondary to congestive heart failure with preserved ejection fraction on presentation, improved. The patient is currently about 22611 mL of negative balance. We have discontinued his Lasix today. 7. Morbid obesity with BMI of 46.5. 8. Diabetes mellitus, fairly controlled. Will continue with the insulin regimen. PLAN: So in general, I think Mr. Smith seems to be doing fairly okay. Hemoglobin and hematocrit did not go up that much after the blood transfusion. We are going to repeat this this afternoon. If there is a downward trend, if it is below 7, we will transfuse. He seems to be doing better from the infectious standpoint since the I D was done. Also, his creatinine has been going up, so we have discontinue his Lasix this morning since he is about 57548 mL negative balance. cc: Slim Montejo MD
[2018-12-19 14:13] LABS: HEMATOCRIT 22.8 % (42.0-52.0); HEMOGLOBIN 7.4 g/dL (14.0-18.0)
[2018-12-19] MEDS: ZOCOR PO SCH (20:31)
[2018-12-20] MEDS: CLINDAMYCIN 600 MG/NS 600 MG/50 ML IVPB IV SCH ×3 (00:02→18:09)
[2018-12-20] MEDS: DUONEB (A & A) INH SCH ×6 (03:19→23:10)
[2018-12-20] MEDS: AZACTAM 1 GM in NS 50 ML IV SCH ×3 (04:02→20:02)
[2018-12-20] MEDS: HUMULIN R SUBQ SCH ×4 (06:04→20:09)
[2018-12-20] MEDS: SYNTHROID PO SCH (06:05)
[2018-12-20] MEDS: PRILOSEC PO SCH (06:05)
[2018-12-20] MEDS: NORCO-10 PO PRN ×2 (06:05→16:44)
[2018-12-20 07:33] LABS: HEMATOCRIT 22.4 % (42.0-52.0); HEMOGLOBIN 7.4 g/dL (14.0-18.0)
[2018-12-20] MEDS: ASPIRIN EC PO SCH (08:17)
[2018-12-20] MEDS: COREG PO SCH ×2 (08:18→20:04)
[2018-12-20] MEDS: VIIBRYD PO SCH (08:18)
[2018-12-20] MEDS: ULORIC PO SCH (08:18)
[2018-12-20] MEDS: BASAGLAR SUBQ SCH (08:18)
[2018-12-20] MEDS: ICAR-C PO SCH (08:18)
[2018-12-20] MEDS: VITAMIN D PO SCH (08:18)
[2018-12-20] MEDS: HUMALOG SUBQ SCH ×3 (08:18→18:09)
[2018-12-20] MEDS: DILAUDID IV SCH ×2 (11:47→20:04)
[2018-12-20] MEDS: ZYRTEC PO SCH (12:52)
--- NOTE | 2018-12-20 14:25 | PROGRESS NOTE ---
DATE: 12/20/2018 SUBJECTIVE: This morning Mr. Smith referred to be doing fairly okay, denies any complaints. OBJECTIVE: Vital signs: Blood pressure is 107/56, pulse is 72, respiration is temperature 98 degrees. General: Mr. Smith is a 63-year-old morbidly obese, male. He is in bed. He does not seem to be in any cardiopulmonary distress. HEENT: Mucosa is pink and moist. Anicteric. Acyanotic. Neck: Supple. Chest: Good air entry bilateral. There are still some crackles in the posterior lung hernandez. Cardiovascular: Regular rate and rhythm. No murmurs, no rubs, no gallops. Abdomen: Soft, distended, nontender. Bowel sounds present. There is edema on the lateral aspect of the abdominal wall. Extremities: About 2+ pedal edema. [employer] PROFESSOR: Patient is awake, alert, oriented. No focal neurological deficit. : There is a Egan catheter in place. There is also about 2 cm surgical wound in the left perianal region which has a Devante drain in it. LABORATORY DATA: No lab work for this morning except hemoglobin which is 7.4, remained stable. ASSESSMENT: 1. Sepsis on presentation secondary to scrotal and perineal abscess. Patient is status post incision and drainage in the perineum. Urology is on board. 2. Obstructive uropathy manifested by bilateral hydronephrosis with dilated bladder, is being overcome by Egan catheter. 3. Acute on chronic renal failure stable. 4. Chronic atrial fibrillation currently rate controlled. 5. History of coronary artery disease status post stents in the past. 6. Fluid overload secondary to congestive heart failure with preserved ejection fraction. The patient continues to be negative balance. 7. Morbid obesity. Body mass index is 46.5. 8. Diabetes mellitus controlled on insulin regimen. In general Mr. Smith is doing a lot better from infectious standpoint. However, he made very little urine overnight. I think he is currently not on any diuretic since nephrology has discontinued it. We are going to continue to follow the renal functions and further recommendations from the other subspecialties involved with his care. cc: Slim Montejo MD
[2018-12-20] MEDS: ZOCOR PO SCH (20:04)
[2018-12-21] MEDS: CLINDAMYCIN 600 MG/NS 600 MG/50 ML IVPB IV SCH ×2 (00:21→08:24)
[2018-12-21] MEDS: DUONEB (A & A) INH SCH ×6 (03:10→23:45)
[2018-12-21] MEDS: AZACTAM 1 GM in NS 50 ML IV SCH ×3 (03:39→20:35)
[2018-12-21] MEDS: NORCO-10 PO PRN ×3 (05:13→23:35)
[2018-12-21] MEDS: PRILOSEC PO SCH (06:25)
[2018-12-21] MEDS: HUMULIN R SUBQ SCH ×4 (06:25→21:45)
[2018-12-21] MEDS: SYNTHROID PO SCH (06:25)
[2018-12-21] MEDS ORDERED: INSULIN PEN NEEDLES ONE (07:26)
[2018-12-21 07:42] LABS: BASO# 0.02 X1000 (0.0-0.2); BASO% 0.2 % (0.0-0.8); EOS# 0.44 X1000 (0.0-0.7); EOS% 3.5 % (0.0-10.0); HEMATOCRIT 22.4 % (42.0-52.0); HEMOGLOBIN 7.5 g/dL (14.0-18.0); IMM GRAN# 0.16 X1000 (0.0-0.04); IMM GRAN% 1.3 % (0.0-0.5); LYMPH# 0.99 X1000 (1.2-3.4); MCH 30.5 PG (27-31); MCHC 33.5 g/dL (33-37); MCV 91.1 FL (81-99); MONO# 1.22 X1000 (0.11-0.59); MONO% 9.8 % (1.7-9.3); MPV 9.7 FL (7.4-10.4); NEUT# 9.62 X1000 (1.4-6.5); NEUT% 77.2 % (42.2-75.2); PLT 220 X1000 (130-400); RBC 2.46 XMIL (4.7-6.1); RDW 13.3 % (11.5-14.5); WBC 12.45 X1000 (4.8-10.8)
[2018-12-21 07:52] LABS: ALB/GLOB RATIO 0.8; ALBUMIN 2.4 g/dL (3.5-5.0); CALCIUM 7.6 mg/dL (8.8-10.2); POTASSIUM 4.9 mmol/L (3.5-5.1); TOTAL BILIRUBIN 0.61 mg/dL (0.20-1.00); TOTAL PROTEIN 5.6 g/dL (6.3-8.3)
[2018-12-21] MEDS: VITAMIN D PO SCH (08:24)
[2018-12-21] MEDS: ULORIC PO SCH (08:24)
[2018-12-21] MEDS: ZYRTEC PO SCH (08:25)
[2018-12-21] MEDS: ASPIRIN EC PO SCH (08:25)
[2018-12-21] MEDS: COREG PO SCH ×2 (08:26→20:34)
[2018-12-21] MEDS: ICAR-C PO SCH (08:26)
[2018-12-21] MEDS: BASAGLAR SUBQ SCH (08:26)
[2018-12-21] MEDS: VIIBRYD PO SCH (08:42)
[2018-12-21] MEDS: XANAX PO PRN ×2 (08:44→20:34)
[2018-12-21] MEDS: HUMALOG SUBQ SCH ×3 (11:34→17:27)
[2018-12-21] MEDS: DILAUDID IV SCH ×2 (13:48→20:34)
--- NOTE | 2018-12-21 13:54 | NEPHROLOGY PROGRESS NOTE ---
DATE: 12/21/2018 SUBJECTIVE: Patient is sitting up on the side of the bed. He states that he has had a little bit of dizziness today. OBJECTIVE: Vital Signs: Temperature 97.5 degrees, pulse 80. Respiratory rate 16, blood pressure 136/61. General: This is a middle-aged gentleman sitting up on the side of the bed. He is awake and alert. No acute distress. HEENT: Normocephalic, atraumatic. [facility]. Neck: Supple. Unable to determine JVD. Cardiovascular: Regular rate and rhythm without murmur or gallop. Pulmonary: He is clear bilaterally. There is no wheeze. Abdomen: Obese, soft, with positive bowel sounds. : Not inspected. He has a Egan catheter with clear urine. Extremities: 1+ edema. He has vascular changes noted bilateral lower extremities. Integumentary: Skin is warm and dry otherwise. INPUT AND OUTPUT: Intake 460 mL. Output 1.2 L. LABORATORY DATA: WBC of 12.5, hemoglobin 7.5. Sodium 125, potassium 4.9, CO2 22, creatinine 3 (2.3), albumin 2.4, calcium 7.6. ASSESSMENT AND PLAN: 1. His diuretics have been held. He continues to make excellent urine output. He will receive 50 g of albumin today per the Primary. He does not have any absolute indications for intervention today in the form of dialysis. We will see what happens with addition of albumin. Further orders to follow. 2. Sepsis, secondary to scrotal and perineal abscess, followed by Primary and Infectious Disease. 3. Fluid volume. He remains in negative fluid territory and if his cumulative numbers are correct, he is still about 15 L negative overall during the hospitalization. Dictated by JOCE Petit for Aris Durán MD Face to face encounter, data reviewed, discussed with Dina Bone on 12/21/18. I agree with the above assessment and plan of care. cc: Aris Durán MD [facility]
[2018-12-21] MEDS: ALBUMIN 25% IV SCH (14:51)
[2018-12-21] MEDS ORDERED: CHLORASEPTIC SPRAY MT PRN (15:42)
--- NOTE | 2018-12-21 15:54 | PROGRESS NOTE ---
DATE: 12/21/2018 SUBJECTIVE: Mr. Smith denies any significant discomfort. He reports irritation from Egan catheter but denies perineal pain. OBJECTIVE: Vital Signs: T 98.2 degrees, P 74, and BP 134/77. General: No acute distress. Sleepy male. Abdomen: Protuberant. Nontender to palpation. : Ecchymotic penile shaft. Suprapubic area and scrotum. Egan catheter is in place. It is draining straw-colored urine. Scrotal and perineal incisions are clean without evidence of gangrene, crepitus or fluctuance noted. PERTINENT LABORATORY DATA: White cell count is 12,000. Creatinine is 3.0. His final wound culture showed no growth. ASSESSMENT AND PLAN: A 63-year-old male status post perineal and scrotal abscess drainage who also has urinary retention likely due to edema from his abscesses. His white cell count is certainly improved. His wound looks clean at this time. PLAN: 1. Continue wound care to keep Egan catheter in for now. 2. Penile edema. 3. We will follow. cc: Bryce Gonzalez MD
--- NOTE | 2018-12-21 16:04 | PROGRESS NOTE ---
DATE: 12/21/2018 SUBJECTIVE: This morning, Mr. Smith refers to be doing fairly okay. However, he did refer that he feels weaker. OBJECTIVE: Vital signs: Blood pressure is 134/77, pulse 90, respirations 15, temperature 98.5 degrees. The patient was saturating 92% on room air. General: Mr. Smith is a 63-year-old morbidly obese male. His BMI is 46.5. He was sitting up at the edge of the bed in no distress. HEENT: Mucosa is pink and moist. Anicteric. Acyanotic. Neck: Supple. Chest: Air entry is bilaterally reduced. Some crackles in the posterior lung hernandez. Cardiovascular: Regular rate and rhythm. There are no murmurs, no rubs, no gallops. Abdomen: Soft, it is distended. Bowel sounds are present, but hypoactive. There is edema on the lateral aspect of the abdominal wall. Extremities: About 2+ pedal edema. 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 Genitourinary: Egan catheter is in place. In the perineum, there is dressing over the surgical wound. Neurologic: The patient is awake, alert, and oriented. LABORATORY DATA: WBC is 12.45, hemoglobin is 7.5, platelet count of 220,000. Chemistry is also reviewed. Sodium is 125, potassium is 4.9, chloride 94, bicarbonate 22. Creatinine had gone up to 3.0 from 2.3 yesterday. BUN is also up to 61. ASSESSMENT: 1. Sepsis on presentation secondary to scrotal and perineal abscess. The patient is status post incision and drainage at the perineum. Cultures have been negative. Urology is on board. We will continue with the current antibiotic coverage. 2. Obstructive uropathy associated with bilateral hydronephrosis with dilated bladder. This has been overcome with Egan catheter. Urology is following. 3. Acute on chronic renal failure. The patient is making adequate urine. He is negative balance. However, he continues to show remarkably fluid overload. His diuretics have been withheld, so we are going to give him albumin 3 days and see if that helps with the renal function. 4. Fluid overload, presumably due to congestive heart failure with preserved ejection fraction. 5. Morbid obesity with BMI of 46.5. 6. Diabetes mellitus with presenting A1c of 7.0. Glucose is well controlled on insulin regimen. PLAN: So in general, Mr. Smith has been in the hospital for the past 14 days. Initially presented because of shortness of breath due to fluid overload. He also had symptoms of sepsis and was found to have perineal and scrotal abscess. The abscess was drained by Urology. Cultures have been negative. Infectious Disease is following. The patient is also having issues with his renal function which initially we thought is because he been over diuresed, but he is still retaining fluid. His Lasix has been discontinued and we are giving him some albumin. The patient is being seen by Nephrology as well. Mr. Smith's disposition is going to depend on the rest of the hospital course. We have consulted social work to look into getting Mr. Smith to an LTAC. cc: Slim Montejo MD
[2018-12-21] MEDS: MYCOSTATIN SUSP PO SCH ×2 (17:21→20:35)
[2018-12-21] MEDS: LACTULOSE PO SCH (17:21)
[2018-12-21] MEDS: CLINDAMYCIN 600 MG/D5W 600 MG/50 ML IVPB IV SCH (17:21)
--- NOTE | 2018-12-21 18:01 | INFECTIOUS DISEASE PROGRESS NO ---
DATE: 12/21/2018 PRESENT ILLNESS: The patient is status post incision and drainage of scrotal and perineal abscesses. Today the patient's tongue felt very sore, and it was erythematous, and it is felt that he may be starting to developed oral candidiasis. MEDICATIONS: This is day 12 of treatment with aztreonam and clindamycin. PHYSICAL EXAMINATION: Vital Signs: Temperature is 97.4 degrees, pulse 72, respirations 16, blood pressure 138/63. General: This is an ill-appearing and obese middle-aged male. He appeared to be in no acute distress. Head/Eyes/Ears/Nose/Throat: He can hear my spoken words and see near objects. His tongue is erythematous, but does not have any white patches on it. Neck: No pain with movement. Lungs: Clear to auscultation. Cardiovascular: Heart rate is regular. Abdomen: Soft and nontender. Pelvic: All of the patient's wounds had are thoroughly packed and they have overlying dressings. I did note that the patient's scrotum is much less swollen and that it had been and color was ecchymotic rather than erythematous. Neurologic: Patient is awake. He can move his extremities. There is no tremor. LABORATORY AND X-RAY: There is no new radiographic study. Liver function studies are normal. Creatinine is 3. GFR is 21. CBC shows a white count of 12,450, hemoglobin 7.5, and platelet count 220,000. ASSESSMENT AND PLAN: The patient is status post surgery for scrotal and perineal abscesses, as well as epididymoorchitis. The plan is for now to continue clindamycin and aztreonam, and today nystatin was started. The patient may have an oral candidiasis. COMORBIDITIES: The patient has morbid obesity. He also has congestive heart failure, acute kidney injury on top of chronic kidney disease, diabetes mellitus, COPD, and anemia. cc: Dheeraj Nguyen MD [facility]
[2018-12-21] MEDS: ZOCOR PO SCH (20:34)
[2018-12-22] MEDS: CLINDAMYCIN 600 MG/D5W 600 MG/50 ML IVPB IV SCH ×2 (02:32→10:04)
[2018-12-22] MEDS: DUONEB (A & A) INH SCH ×7 (02:40→23:47)
[2018-12-22] MEDS: NORCO-10 PO PRN (05:51)
[2018-12-22] MEDS: PRILOSEC PO SCH (05:53)
[2018-12-22] MEDS: AZACTAM 1 GM in NS 50 ML IV SCH ×2 (05:53→11:37)
[2018-12-22] MEDS: SYNTHROID PO SCH (05:53)
[2018-12-22] MEDS: HUMULIN R SUBQ SCH ×4 (05:56→22:47)
[2018-12-22 07:28] LABS: BASO# 0.02 X1000 (0.0-0.2); BASO% 0.2 % (0.0-0.8); EOS# 0.36 X1000 (0.0-0.7); EOS% 3.7 % (0.0-10.0); HEMATOCRIT 22.7 % (42.0-52.0); HEMOGLOBIN 7.7 g/dL (14.0-18.0); IMM GRAN# 0.07 X1000 (0.0-0.04); IMM GRAN% 0.7 % (0.0-0.5); LYMPH% 11.2 % (20.5-51.1); MCH 30.7 PG (27-31); MCHC 33.9 g/dL (33-37); MCV 90.4 FL (81-99); MONO# 0.97 X1000 (0.11-0.59); MONO% 9.9 % (1.7-9.3); MPV 9.4 FL (7.4-10.4); NEUT# 7.29 X1000 (1.4-6.5); NEUT% 74.3 % (42.2-75.2); PLT 260 X1000 (130-400); RBC 2.51 XMIL (4.7-6.1); RDW 13.1 % (11.5-14.5); WBC 9.81 X1000 (4.8-10.8)
[2018-12-22 07:53] LABS: CALCIUM 8.2 mg/dL (8.8-10.2); CREATININE 2.6 mg/dL (0.7-1.2); PHOSPHORUS 4.8 mg/dL (2.7-4.5); POTASSIUM 4.4 mmol/L (3.5-5.1)
[2018-12-22] MEDS: DILAUDID IV SCH ×2 (09:50→22:46)
[2018-12-22] MEDS: ULORIC PO SCH (10:04)
[2018-12-22] MEDS: ICAR-C PO SCH (10:06)
[2018-12-22] MEDS: VITAMIN D PO SCH (10:06)
[2018-12-22] MEDS: ASPIRIN EC PO SCH (10:06)
[2018-12-22] MEDS: COREG PO SCH ×2 (10:06→22:46)
[2018-12-22] MEDS: VIIBRYD PO SCH (10:06)
[2018-12-22] MEDS: MYCOSTATIN SUSP PO SCH ×4 (10:07→22:46)
[2018-12-22] MEDS: LACTULOSE PO SCH ×3 (10:07→16:30)
[2018-12-22] MEDS: BASAGLAR SUBQ SCH (10:10)
[2018-12-22] MEDS: ZYRTEC PO SCH (10:19)
[2018-12-22] MEDS: ALBUMIN 25% IV SCH (11:04)
--- NOTE | 2018-12-22 12:04 | NEPHROLOGY PROGRESS NOTE ---
DATE: 12/22/2018 SUBJECTIVE: He is sitting up. He states he is still swelled, especially in his scrotum and therefore does not think he can have his Egan removed. OBJECTIVE: Vital Signs: Blood pressure 120/70, heart rate 73, respirations 19, afebrile. Intake 400 mL. Output 1.5 L. Physical Examination: General: No acute distress. Skin: Warm and dry. HEENT: Conjunctivae are pink. Neck: Neck veins are not visible. Heart: Regular. No gallops. Lungs: Equal. No crackles or wheezes. Abdomen: Obese, soft, nontender. Bowel sounds present. Extremities: With 1+ edema. No clubbing or cyanosis. IMPRESSION: Acute kidney injury overlying chronic kidney disease. Baseline creatinine 1.5. I think his recent change is because of prerenal factors. He is currently receiving albumin and his urine output is improved and creatinine improved as well. Electrolytes otherwise are in target. Acid-base in target. No changes. cc: Aris Durán MD
--- NOTE | 2018-12-22 16:03 | PROGRESS NOTE ---
DATE: 12/22/2018 SUBJECTIVE: Mr. Smith is feeling better. His breathing is better. Has his nasal cannula on. He presented on 12/07/2018, a patient of Dr. Daniel Nelson, with shortness of breath for a couple weeks. A 63-year-old morbidly obese male with history of coronary artery disease, chronic kidney disease stage 3, diabetes mellitus type 2, hypertension, COPD, sleep apnea, who presented to the emergency department with a 2-day history of worsening shortness of breath, having trouble catching his breath, taking some antibiotics earlier, and so was admitted with acute congestive heart failure exacerbation, and he seems to be improved. He is on the floor at the present time. OBJECTIVE: Temperature 98.0 degrees, pulse 73, respirations 8, blood pressure 120/70. Pupils are equal and round. Lungs are clear in all lung hernandez. Cardiovascular exam with regular rhythm and rate without murmur or S3. OUTPUT: Urine output is 2000 mL. DIAGNOSTIC STUDIES: Blood sugars 196, 134, 274. ASSESSMENT AND PLAN: 1. Sepsis on presentation secondary to scrotal and peroneal abscess. Patient is status post incision and drainage of the perineum. Cultures were negative. Urology has been following and on antibiotics. 2. Obstructive uropathy associated with bilateral hydronephrosis, dilated bladder. This has been overcome with Egan catheter. Again, Urology is following. 3. Acute on chronic renal failure. Making adequate urine. He continues some fluid overload and his diuretics have been withheld so we are going to give him 3 days to see if this helps with his renal function. 4. Fluid overload, presumably from congestive heart failure with preserved ejection fraction. 5. Morbid obesity, Body Mass Index of 46.5. 6. Diabetes mellitus, type 2. Hemoglobin A1c was 7. Continue sliding scale. Seems to be making improvement. Continue present measures. MEDICATION: He is on Zocor 40 mg a day. We gave him a dose of albumin I think yesterday of 50 g 25%. Xanax 0.5 mg b.i.d. p.r.n. Aspirin 81 mg a day. Aztreonam 1 g IV q.8 h. Coreg 12.5 mg b.i.d. Zyrtec 10 mg a day. Vitamin D3 1000 units daily. Clindamycin 600 mg IV q.8 h. Uloric 40 mg p.o. q.a.m. Dilaudid 1 mg IV q.12 h. Hydrocodone 10 mg q.4 h. p.r.n. Insulin glargine 20 units subcutaneous q.a.m. Iron carbonyl/ascorbic acid 1 daily. Lactulose 30 mL p.o. t.i.d. Synthroid 50 mcg daily. Linzess 145 mg p.o. daily. Prilosec 20 mg daily. Viibryd 20 mg daily. Neurontin 200 mg p.o. b.i.d. so continue present regimen. cc: Conor Santo MD
[2018-12-22] MEDS: CIPRO PO SCH (22:46)
[2018-12-22] MEDS: CLEOCIN PO SCH (22:46)
[2018-12-22] MEDS: ZOCOR PO SCH (22:46)
[2018-12-23] MEDS: DUONEB (A & A) INH SCH ×6 (03:41→23:42)
[2018-12-23] MEDS: CLEOCIN PO SCH ×3 (05:13→20:23)
[2018-12-23] MEDS: DILAUDID IV SCH ×2 (05:14→15:03)
[2018-12-23] MEDS: SYNTHROID PO SCH (06:09)
[2018-12-23] MEDS: PRILOSEC PO SCH (06:09)
--- NOTE | 2018-12-23 09:16 | NEPHROLOGY PROGRESS NOTE ---
DATE: 12/23/2018 SUBJECTIVE: He states he has had some bleeding from his surgical sites. He complains of being very weak and difficulty and has difficulty with standing on his own. No shortness of breath. OBJECTIVE: Vital Signs: Blood pressure 138/77, heart rate 70, respiration 18, afebrile. Intake and output are incompletely measured. Heart: Regular. No gallops. Lungs: Equal. No crackles. Neck: Neck veins are not visible. Abdomen: Obese and soft. Bowel sounds are present. Extremities: Have 2+ edema. No clubbing or cyanosis. IMPRESSION: Acute kidney injury overlying chronic kidney disease. BUN and creatinine are improving simply with IV albumin. Labs are pending for this morning. I will give Lasix 200 mg IV q.12 hours x2 doses and re-evaluate his volume status and kidney function. Electrolytes are acceptable though he does have worsening hyponatremia. Re-evaluate today. cc: Aris Durán MD
[2018-12-23] MEDS: VIIBRYD PO SCH (09:52)
[2018-12-23] MEDS: ULORIC PO SCH (09:52)
[2018-12-23] MEDS: COREG PO SCH ×2 (09:53→20:23)
[2018-12-23] MEDS: ZYRTEC PO SCH (09:53)
[2018-12-23] MEDS: CIPRO PO SCH ×2 (09:53→20:23)
[2018-12-23] MEDS: ASPIRIN EC PO SCH (09:53)
[2018-12-23] MEDS: VITAMIN D PO SCH (09:53)
[2018-12-23] MEDS: MYCOSTATIN SUSP PO SCH ×4 (09:53→20:23)
[2018-12-23] MEDS: ICAR-C PO SCH (09:53)
[2018-12-23] MEDS: BASAGLAR SUBQ SCH (09:55)
[2018-12-23] MEDS: ALBUMIN 25% IV SCH (09:56)
[2018-12-23] MEDS: LASIX IV SCH ×2 (10:05→20:23)
[2018-12-23] MEDS: LACTULOSE PO SCH ×3 (10:07→16:29)
[2018-12-23] MEDS: HUMULIN R SUBQ SCH ×3 (11:12→20:26)
[2018-12-23] MEDS: XANAX PO PRN ×2 (12:10→20:31)
--- NOTE | 2018-12-23 19:52 | INFECTIOUS DISEASE PROGRESS NO ---
DATE: 12/23/2018 PRESENT ILLNESS: Mr. Smith is status post incision and drainage of scrotal and perineal abscesses. He is also being treated for an oral candidiasis. MEDICATIONS: Yesterday he was transitioned to oral antibiotics using Cipro 250 mg by mouth twice daily as a renally modified dose, and Cleocin 300 mg every 8 hours. He is also receiving nystatin swish and swallow. PHYSICAL EXAMINATION: Vital Signs: Temperature is 97.7 degrees, pulse rate 77, respiratory rate 16, blood pressure 134/59, O2 sats 97% on 2-1/2 L nasal cannula. General: This is a morbidly obese, chronically ill appearing male. He is sitting up on the side of the bed currently in no acute distress. HEENT: Atraumatic, normocephalic. Oral mucous membranes are pink and moist. Conjunctivae are pale. Neck: Supple. Trachea is midline. Cardiovascular: Heart rate and rhythm are regular. Normal sinus rhythm on the monitor with a bundle branch block. Respiratory: Lung sounds are clear to auscultation with a mild scattered wheeze noted in the bases. Abdomen: Soft, obese and nontender. Bowel sounds are active. Integumentary: Scrotal and perineal wounds have packing in place with some bloody drainage noted. There was also some swelling and ecchymosis to the penis and scrotum. There is a large skin tear noted to his left lower extremity with Medihoney in place. Neurologic: He is awake, alert and oriented and able to move around in the bed without any assistance. LABORATORY AND X-RAY: Today, there is no blood work; however, yesterday his white count was 9.81, hemoglobin 7.7, platelet count 260,000, creatinine 2.6, GFR 25. His blood cultures, perineal and abscess cultures have all shown no growth. No imaging reports today. ASSESSMENT AND PLAN: Mr. Smith is status post incision and drainage of scrotal and perineal abscesses. He has been transitioned to oral antibiotics, which we plan to continue. When the patient is ready for discharge, we will provide him with prescriptions and have him follow up with us in the office. He also has an oral candidiasis, which he states is improving a little, so we will continue nystatin swish and swallow as ordered. These plans have been discussed with and recommended by Dr. Nguyen. COMORBIDITIES: For Mr. Smith include morbid obesity, congestive heart failure, acute on chronic kidney disease, diabetes mellitus, COPD, and anemia. Dictated by JOCE Peterson for Dheeraj Nguyen MD cc: Dheeraj Nguyen MD [facility]
[2018-12-23] MEDS: ZOCOR PO SCH (20:23)
--- NOTE | 2018-12-24 00:28 | PROGRESS NOTE ---
DATE: 12/23/2018 SUBJECTIVE: He feels much better. He would like to try and see if he can go home tomorrow. OBJECTIVE: Vital signs: His temperature is 98.8 degrees, pulse 69, respirations 18, blood pressure 154/78. HEENT: Pupils are equal round. Lungs: Clear in all lung hernandez. Extremities: He has had decreased swelling in his ankles and he is pretty weak still, so continue physical therapy. ASSESSMENT AND PLAN: 1. Status post incision and drainage of scrotal perineal abscess. He is being treated for oral candidiasis. Transitioned to oral antibiotics, he is on Cipro 250 mg by mouth twice a day and Cleocin 300 mg every 8 hours, and nystatin swish and swallow. 2. Acute kidney injury overlying chronic kidney disease. BUN and creatinine are improving simply with IV albumin. Electrolytes are stable and he has been given Lasix 200 mg IV every 12 hours x2 doses, and re-evaluate his electrolytes. 3. Obstructive uropathy associated with bilateral hydronephrosis. That seems to have improved. He has got a Egan catheter. Urology following. 4. Acute on chronic renal failure, improved. 5. Fluid overload, presumably congestive heart failure. Preserved ejection fraction. Responding to diuresis. 6. Morbid obesity. Body mass index is 46.5. 7. Diabetes mellitus type 2. Sugars under good control. I do not see any change to his orders. cc: Conor Santo MD
[2018-12-24] MEDS: DILAUDID IV SCH ×3 (01:15→18:07)
[2018-12-24] MEDS: HUMULIN R SUBQ SCH ×5 (01:35→22:43)
[2018-12-24] MEDS: DUONEB (A & A) INH SCH ×6 (03:34→23:54)
[2018-12-24] MEDS: CLEOCIN PO SCH ×3 (06:04→22:43)
[2018-12-24] MEDS: PRILOSEC PO SCH (06:04)
[2018-12-24] MEDS: TYLENOL PO PRN (06:04)
[2018-12-24] MEDS: SYNTHROID PO SCH (06:04)
[2018-12-24 07:57] LABS: BASO# 0.02 X1000 (0.0-0.2); BASO% 0.2 % (0.0-0.8); EOS% 0.8 % (0.0-10.0); HEMATOCRIT 22.5 % (42.0-52.0); HEMOGLOBIN 7.6 g/dL (14.0-18.0); IMM GRAN# 0.08 X1000 (0.0-0.04); IMM GRAN% 0.6 % (0.0-0.5); LYMPH# 0.82 X1000 (1.2-3.4); LYMPH% 6.4 % (20.5-51.1); MCH 30.2 PG (27-31); MCHC 33.8 g/dL (33-37); MCV 89.3 FL (81-99); MONO% 7.8 % (1.7-9.3); MPV 9.3 FL (7.4-10.4); NEUT# 10.78 X1000 (1.4-6.5); NEUT% 84.2 % (42.2-75.2); PLT 334 X1000 (130-400); RBC 2.52 XMIL (4.7-6.1); RDW 13.3 % (11.5-14.5)
[2018-12-24 08:03] LABS: ALBUMIN 3.5 g/dL (3.5-5.0); CALCIUM 8.7 mg/dL (8.8-10.2); PHOSPHORUS 3.5 mg/dL (2.7-4.5); POTASSIUM 4.7 mmol/L (3.5-5.1)
[2018-12-24] MEDS: MYCOSTATIN SUSP PO SCH ×4 (09:39→22:44)
[2018-12-24] MEDS: VIIBRYD PO SCH (09:39)
[2018-12-24] MEDS: ASPIRIN EC PO SCH (09:40)
[2018-12-24] MEDS: VITAMIN D PO SCH (09:40)
[2018-12-24] MEDS: CIPRO PO SCH ×2 (09:40→22:42)
[2018-12-24] MEDS: COREG PO SCH ×2 (09:40→22:43)
[2018-12-24] MEDS: ZYRTEC PO SCH (09:40)
[2018-12-24] MEDS: ULORIC PO SCH (09:40)
[2018-12-24] MEDS: BASAGLAR SUBQ SCH (09:40)
[2018-12-24] MEDS: ICAR-C PO SCH (09:40)
[2018-12-24] MEDS: LACTULOSE PO SCH ×3 (09:41→18:08)
[2018-12-24] MEDS: LASIX PO SCH (12:12)
--- NOTE | 2018-12-24 13:17 | NEPHROLOGY PROGRESS NOTE ---
DATE: 12/24/2018 SUBJECTIVE: He is sitting up on the side of the bed. No shortness of breath, nausea, or vomiting. Swelling has improved. He has had some problems with his blood sugar. OBJECTIVE: Vital Signs: Blood pressure 130/70, heart rate 74, respirations 20, afebrile. General: No acute distress. Skin: Warm and dry. Neck: Neck veins are not visible in the erect position. Heart: Regular. No gallops. Lungs: Equal. No crackles or wheezes. Abdomen: Obese, soft, nontender. Bowel sounds are present. Extremities: Edema, limited below the knee. IMPRESSION: 1. Volume overload. Improved. I will decrease his diuretic dosing. 2. Acute kidney injury overlying chronic kidney disease. Baseline creatinine 1.5. Improving with albumin and Lasix. His serum albumin is up to 3.5. cc: Aris Durán MD
--- NOTE | 2018-12-24 15:33 | PROGRESS NOTE ---
DATE: 12/24/2018 SUBJECTIVE: Mr. Smith does not feel good today. He is kind of discouraged, feels very weak. He has been doing some with physical therapy, but feels like he has got a lot of fluid on board. OBJECTIVE: Vital Signs: Temperature 97.6 degrees, pulse 76, respirations 20, and blood pressure 141/77. HEENT: Pupils are equal and round. Lungs: Clear in all lung hernandez. Cardiovascular: Regular rhythm and rate without murmur or S3. Abdomen: Soft. Skin: Warm and dry. ASSESSMENT AND PLAN: 1. Volume overload, improved with diuresing and acute kidney injury overlying chronic kidney disease with baseline creatinine of 1.5, and his creatinine today was 2.0 but is coming down. 2. Diabetes mellitus type 2. Sugar is still running a little on the high side. 3. Obstructive uropathy, bilateral hydronephrosis which is improved with Egan catheter. 4. Acute on chronic renal failure as mentioned above. 5. Fluid overload. 6. Morbid obesity. 7. Diabetes mellitus type 2. 8. Deconditioning weakness. Continue physical therapy. I think the plan is trying to see if he can go to rehab so to continue his current medications. cc: Conor Santo MD
[2018-12-24] MEDS: NORCO-10 PO PRN (22:41)
[2018-12-24] MEDS: XANAX PO PRN (22:41)
[2018-12-24] MEDS: ZOCOR PO SCH (22:42)
[2018-12-25] MEDS: DUONEB (A & A) INH SCH ×7 (03:12→23:33)
[2018-12-25] MEDS: DILAUDID IV SCH ×3 (05:28→21:08)
[2018-12-25] MEDS: CLEOCIN PO SCH ×3 (05:28→20:37)
[2018-12-25] MEDS: HUMULIN R SUBQ SCH ×4 (07:14→20:38)
[2018-12-25] MEDS: PRILOSEC PO SCH (07:14)
[2018-12-25] MEDS: SYNTHROID PO SCH (07:14)
[2018-12-25 07:40] LABS: BASO# 0.02 X1000 (0.0-0.2); BASO% 0.2 % (0.0-0.8); EOS# 0.26 X1000 (0.0-0.7); EOS% 2.5 % (0.0-10.0); HEMATOCRIT 21.1 % (42.0-52.0); HEMOGLOBIN 7.1 g/dL (14.0-18.0); IMM GRAN# 0.04 X1000 (0.0-0.04); IMM GRAN% 0.4 % (0.0-0.5); LYMPH# 1.42 X1000 (1.2-3.4); LYMPH% 13.4 % (20.5-51.1); MCH 30.3 PG (27-31); MCHC 33.6 g/dL (33-37); MCV 90.2 FL (81-99); MONO# 1.01 X1000 (0.11-0.59); MONO% 9.6 % (1.7-9.3); NEUT# 7.81 X1000 (1.4-6.5); NEUT% 73.9 % (42.2-75.2); PLT 326 X1000 (130-400); RBC 2.34 XMIL (4.7-6.1); RDW 13.6 % (11.5-14.5); WBC 10.56 X1000 (4.8-10.8)
[2018-12-25 07:57] LABS: ALBUMIN 3.1 g/dL (3.5-5.0); CALCIUM 8.3 mg/dL (8.8-10.2); CREATININE 1.6 mg/dL (0.7-1.2); PHOSPHORUS 3.3 mg/dL (2.7-4.5); POTASSIUM 4.2 mmol/L (3.5-5.1)
[2018-12-25] MEDS: ASPIRIN EC PO SCH (09:24)
[2018-12-25] MEDS: NORCO-10 PO PRN (09:24)
[2018-12-25] MEDS: COREG PO SCH ×2 (09:24→20:37)
[2018-12-25] MEDS: VIIBRYD PO SCH (09:24)
[2018-12-25] MEDS: ULORIC PO SCH (09:24)
[2018-12-25] MEDS: ZYRTEC PO SCH (09:24)
[2018-12-25] MEDS: LASIX PO SCH (09:24)
[2018-12-25] MEDS: VITAMIN D PO SCH (09:24)
[2018-12-25] MEDS: CIPRO PO SCH ×2 (09:24→20:37)
[2018-12-25] MEDS: ICAR-C PO SCH (09:24)
[2018-12-25] MEDS: LACTULOSE PO SCH ×5 (09:24→17:08)
[2018-12-25] MEDS: MYCOSTATIN SUSP PO SCH ×4 (09:26→20:37)
[2018-12-25] MEDS: BASAGLAR SUBQ SCH (09:27)
[2018-12-25] MEDS: XANAX PO PRN ×2 (10:26→23:55)
[2018-12-25] MEDS: TYLENOL PO PRN (10:26)
[2018-12-25] MEDS ORDERED: DILAUDID IV ONE (14:17)
--- NOTE | 2018-12-25 16:59 | NEPHROLOGY PROGRESS NOTE ---
DATE: 12/25/2018 SUBJECTIVE: He is lying on his left side today. He states his swelling is much better and he has no real shortness of breath. He is still having pain in his perineal region. OBJECTIVE: Vital Signs: Blood pressure 126/57, heart rate 70, afebrile. Intake 200 mL. Output 4.2 L. General: No acute distress. Skin: Warm and dry. Conjunctivae are pink. Neck: Neck veins are not appreciated. Heart: Regular. Lungs: Equal. No crackles. Abdomen: Obese, soft, nontender. Bowel sounds present. Extremities: With trace edema. No clubbing or cyanosis. IMPRESSION: 1. Chronic kidney disease stage 3. His creatinine has returned to his historical baseline. 2. Electrolytes: Modest hyponatremia in the context of fluids, infection and diuretics. Overall improving. 3. Volume status improved. Continue current p.o. diuretic regimen. His prerenal state was precipitated by significant hypoalbuminemia that was treated with IV albumin. Observe but he may require more albumin. cc: Aris Durán MD
--- NOTE | 2018-12-25 18:06 | INFECTIOUS DISEASE PROGRESS NO ---
DATE: 12/25/2018 PRESENT ILLNESS: The patient is status post incision and drainage of scrotal and perineal abscesses. He is also being treated for oral candidiasis. MEDICATIONS: The patient is on a combination of ciprofloxacin and clindamycin, both being given p.o. This is for his abscesses that have been drained. For the patient's oral candidiasis, he is receiving Mycostatin swish and swallow. OBJECTIVE: Vital signs: Temperature is 97 degrees, pulse 77, respirations 16, blood pressure 132/69. Generally, this is a morbidly obese-appearing male. He is in no acute distress. Head, eyes, ears, nose, throat: He can hear my spoken words and see near objects. He does not have any white coating on his tongue. Neck: No pain when he turns his head. Lungs clear to auscultation. Cardiovascular: Heart rate is regular. Abdomen soft and nontender. Pelvic exam: The scrotal abscess has been drained. There is much less swelling of the scrotum and the remaining skin is purplish in color. There is no purulent drainage. The patient's perineal wound also looks much better. It has been drained. There is no drainage coming out now, and the area is much less swollen than it was. Both the scrotal wounds and the perineal wounds are being packed still. Neurologic: The patient is alert. He can move his extremities. There is no tremor. LABORATORY DATA: CBC shows a white count of 10,560, hemoglobin 7.1, and platelet count 326,000. Creatinine is 1.6. GFR is 44.. ASSESSMENT AND PLAN: 1. The patient is status post incision and drainage of scrotal and perineal abscesses. My plan is to continue for now the clindamycin and ciprofloxacin. As regarding the oral candidiasis, I plan to continue Mycostatin swish and swallow. 2. Comorbidities: The patient is morbidly obese. He has congestive heart failure and acute-on- chronic renal disease. He also is a diabetic and he has chronic obstructive pulmonary disease and chronic anemia. cc: Dheeraj Nguyen MD
--- NOTE | 2018-12-25 18:26 | PROGRESS NOTE ---
DATE: 12/25/2018 SUBJECTIVE: Mr. Smith still feels pretty rough. His son is there at the bedside. He still feels pretty weak and puny. The swelling seems to be going down. OBJECTIVE: Temperature 97 degrees, pulse 77, respirations 18, blood pressure 132/69. Pupils are equal. Lungs are clear in all lung hernandez. Cardiovascular regular rhythm and rate without murmur or S3. Abdomen is soft. Skin is warm and dry. The venous ulcer on his right leg seems to be improving. Swelling does seem to be going down. LABORATORY DATA: His labs from today: White count 10,560, hematocrit 21, hemoglobin 7.1, platelet count is 326,000. Sodium 128, potassium 4.2, chloride 95, BUN 39, creatinine 1.6. Blood sugars 186, 162, 261, 388, bouncing around a little bit. Creatinine has improved, was 2.3, down to 1.6. That is encouraging. ASSESSMENT AND PLAN: 1. Volume overload, improved. His diuretic was decreased. 2. Acute kidney injury overlying chronic kidney disease. Baseline creatinine 1.5. This is improving with albumin and Lasix. His serum albumin is up to 3.5. 3. Anemia. Dr. Daniel Nelson had called me. He wanted know if we might try and give him a unit of blood, and I think we can try that and see if it will help. 4. Obstructive uropathy with bilateral hydronephrosis, improved with Egan catheter. 5. [id number] renal failure, as mentioned above. 6. Morbid obesity. 7. Diabetes mellitus type 2. Sugar is still bouncing around quite a bit. We will give him a unit of blood and I will follow that with a little bit of Lasix today, this evening. MEDICATIONS: On review of his orders, he is on Zocor 40 mg at bedtime; clindamycin 300 mg p.o. q.8; he is on aspirin 81 mg a day; Coreg 12.5 mg b.i.d.; Zyrtec 10 mg a day; Cipro 250 mg p.o. b.i.d.; Uloric 40 mg q.a.m.; Lasix 80 mg daily; iron carbonyl and folic acid 1 tablet daily; lactulose 30 mL b.i.d.; Synthroid 50 mcg daily; Linzess 145 mcg p.o. daily; Prilosec 20 mg a day; vilazodone 20 mg daily. cc: Conor Santo MD
[2018-12-25] MEDS ORDERED: NS 250 ML ONE (20:31)
[2018-12-25] MEDS: ZOCOR PO SCH (20:37)
[2018-12-26] MEDS: TYLENOL PO PRN (02:13)
[2018-12-26] MEDS: NORCO-10 PO PRN ×3 (02:55→14:30)
[2018-12-26] MEDS: DUONEB (A & A) INH SCH ×6 (03:25→23:19)
[2018-12-26] MEDS: HUMULIN R SUBQ SCH ×5 (06:09→23:08)
[2018-12-26] MEDS: CLEOCIN PO SCH ×3 (06:09→20:37)
[2018-12-26] MEDS: SYNTHROID PO SCH (06:09)
[2018-12-26] MEDS: PRILOSEC PO SCH (06:09)
[2018-12-26 07:37] LABS: ALBUMIN 3.2 g/dL (3.5-5.0); CALCIUM 7.7 mg/dL (8.8-10.2); CREATININE 1.7 mg/dL (0.7-1.2); PHOSPHORUS 2.8 mg/dL (2.7-4.5); POTASSIUM 4.5 mmol/L (3.5-5.1)
[2018-12-26] MEDS: XANAX PO PRN (09:31)
[2018-12-26] MEDS: VIIBRYD PO SCH (09:31)
[2018-12-26] MEDS: LASIX PO SCH (09:31)
[2018-12-26] MEDS: ULORIC PO SCH (09:31)
[2018-12-26] MEDS: VITAMIN D PO SCH (09:31)
[2018-12-26] MEDS: ASPIRIN EC PO SCH (09:31)
[2018-12-26] MEDS: ZYRTEC PO SCH (09:31)
[2018-12-26] MEDS: CIPRO PO SCH ×2 (09:31→20:37)
[2018-12-26] MEDS: BASAGLAR SUBQ SCH (09:32)
[2018-12-26] MEDS: COREG PO SCH ×2 (09:32→20:37)
[2018-12-26] MEDS: LACTULOSE PO SCH ×3 (09:32→17:33)
[2018-12-26] MEDS: ICAR-C PO SCH (09:32)
[2018-12-26] MEDS: MYCOSTATIN SUSP PO SCH ×4 (09:32→20:37)
[2018-12-26] MEDS: DILAUDID IV SCH ×3 (10:24→21:22)
--- NOTE | 2018-12-26 14:08 | PROGRESS NOTE ---
DATE: 12/26/2018 He does feel a little better today. He feels like that unit of blood we gave him yesterday has helped. He feels like the swelling is going down. He would like a little more for pain. He has had a little more discomfort around the groin, but overall I think he is content, just concerned about his weakness. OBJECTIVE: Vital Signs: Temperature 97.5 degrees, pulse 70, respirations 16, blood pressure 127/56. HEENT: Pupils are equal and round. Lungs: Are clear in all lung hernandez. Cardiovascular: Regular rhythm and rate without murmur or S3. Urine output is 3000 mL. Blood sugar 388, 152, 162. ASSESSMENT AND PLAN: 1. Volume overload which is improved and his diuretic has been decreased. 2. Acute kidney injury overlying chronic kidney disease. His baseline creatinine is 1.5. His creatinine is down to 1.7 which is encouraging. Electrolytes today: Sodium 127, potassium 4.5, chloride 93, BUN 41. 3. Anemia. We did give him a unit of blood yesterday. I think this is just a chronic anemia and hopefully this will help. 4. Obstructive uropathy, bilateral hydronephrosis. Egan catheter has helped this. 5. Acute on chronic renal failure as mentioned above better. 6. Morbid obesity. 7. Diabetes mellitus type 2. 8. Genital swelling. He had a scrotal abscess and drainage and status post perineal and scrotal cell abscess drainage, which seems to be doing better. Looking at his orders: I do not see any change. cc: Conor Santo MD
[2018-12-26] MEDS: ZOCOR PO SCH (20:37)
[2018-12-27] MEDS: DUONEB (A & A) INH SCH ×6 (03:12→23:31)
[2018-12-27] MEDS: SYNTHROID PO SCH ×2 (05:40→07:18)
[2018-12-27] MEDS: PRILOSEC PO SCH ×2 (05:41→07:18)
[2018-12-27] MEDS: CLEOCIN PO SCH ×3 (05:41→20:14)
[2018-12-27] MEDS: DILAUDID IV SCH ×3 (05:41→21:37)
[2018-12-27] MEDS: HUMULIN R SUBQ SCH ×4 (06:36→20:14)
--- NOTE | 2018-12-27 08:10 | PROGRESS NOTE ---
DATE: 12/27/2018 SUBJECTIVE: He hurt quite a bit since they changed the packing around his groin and scrotal area. Otherwise, other he is feeling better. Feels like his leg swelling has gone down. Feels like his breathing is doing better. OBJECTIVE: Vitals: Temperature 97.4 degrees, pulse 70, respirations 18, blood pressure 99/60. Eyes: Pupils are equal round. Lungs: Clear in all lung hernandez. Cardiovascular: Regular rhythm and rate without murmur or S3. Abdomen: Soft. Skin: Warm and dry. URINE OUTPUT: 5000 mL. ASSESSMENT AND PLAN: 1. Volume overload, which is improved with diuretic and getting better every day. 2. Acute kidney injury on top of chronic kidney disease. Suspect creatinine, baseline is 1.5 and is coming down nicely. 3. Anemia, stable. I did give him 1 unit of packed red blood cells the day before yesterday. 4. Obstructive uropathy, bilateral hydronephrosis. Egan catheter is helping. 5. Acute on chronic renal failure. 6. Morbid obesity. 7. Diabetes mellitus type 2. 8. He has a scrotal abscess, status post perineal and scrotal abscess drainage. Continue topical care and changing of his packing and dressing. Seems to be improving. cc: Conor Santo MD
[2018-12-27] MEDS: ASPIRIN EC PO SCH (08:36)
[2018-12-27] MEDS: COREG PO SCH ×2 (08:36→20:14)
[2018-12-27] MEDS: LACTULOSE PO SCH ×4 (08:36→17:14)
[2018-12-27] MEDS: CIPRO PO SCH ×2 (08:36→20:14)
[2018-12-27] MEDS: MYCOSTATIN SUSP PO SCH ×4 (08:36→20:14)
[2018-12-27] MEDS: ZYRTEC PO SCH (08:36)
[2018-12-27] MEDS: LASIX PO SCH (08:36)
[2018-12-27] MEDS: ICAR-C PO SCH (08:36)
[2018-12-27] MEDS: VIIBRYD PO SCH (08:37)
[2018-12-27] MEDS: ULORIC PO SCH (08:37)
[2018-12-27] MEDS: VITAMIN D PO SCH (08:37)
[2018-12-27] MEDS: BASAGLAR SUBQ SCH (08:43)
[2018-12-27] MEDS: NORCO-10 PO PRN (13:42)
[2018-12-27] MEDS: XANAX PO PRN (20:14)
[2018-12-27] MEDS: ZOCOR PO SCH (20:14)
[2018-12-28] MEDS: NORCO-10 PO PRN ×3 (03:13→22:27)
[2018-12-28] MEDS: DUONEB (A & A) INH SCH ×6 (03:15→23:10)
[2018-12-28] MEDS: CLEOCIN PO SCH ×3 (06:07→22:27)
[2018-12-28] MEDS: HUMULIN R SUBQ SCH ×4 (06:07→22:28)
[2018-12-28] MEDS: PRILOSEC PO SCH (06:07)
[2018-12-28] MEDS: SYNTHROID PO SCH (06:07)
[2018-12-28 07:40] LABS: HEMATOCRIT 23.8 % (42.0-52.0); HEMOGLOBIN 7.8 g/dL (14.0-18.0); MCHC 32.8 g/dL (33-37); MCV 91.5 FL (81-99); MPV 9.1 FL (7.4-10.4); RBC 2.6 XMIL (4.7-6.1); RDW 14.3 % (11.5-14.5); WBC 8.09 X1000 (4.8-10.8)
[2018-12-28 07:53] LABS: ALBUMIN 3.1 g/dL (3.5-5.0); CALCIUM 8.4 mg/dL (8.8-10.2); CREATININE 1.4 mg/dL (0.7-1.2); PHOSPHORUS 2.7 mg/dL (2.7-4.5); POTASSIUM 4.1 mmol/L (3.5-5.1)
[2018-12-28] MEDS: DILAUDID IV SCH (10:08)
[2018-12-28] MEDS: CIPRO PO SCH ×2 (10:19→22:27)
[2018-12-28] MEDS: ULORIC PO SCH (10:19)
[2018-12-28] MEDS: ZYRTEC PO SCH (10:19)
[2018-12-28] MEDS: ASPIRIN EC PO SCH (10:19)
[2018-12-28] MEDS: VITAMIN D PO SCH (10:19)
[2018-12-28] MEDS: LACTULOSE PO SCH ×3 (10:20→16:11)
[2018-12-28] MEDS: VIIBRYD PO SCH (10:20)
[2018-12-28] MEDS: COREG PO SCH ×2 (10:21→22:27)
[2018-12-28] MEDS: LASIX PO SCH (10:21)
[2018-12-28] MEDS: MYCOSTATIN SUSP PO SCH ×4 (10:21→23:42)
[2018-12-28] MEDS: ICAR-C PO SCH (10:22)
[2018-12-28] MEDS: BASAGLAR SUBQ SCH (10:23)
--- NOTE | 2018-12-28 10:56 | NEPHROLOGY PROGRESS NOTE ---
DATE: 12/28/2018 TIME SEEN: 0705 SUBJECTIVE: Mr. Smith is resting quietly on the side of the bed. He has just taken his BiPAP off. He states that he is feeling better. OBJECTIVE: His Most Recent Vital Signs: Patient's last temperature 98, pressure 112/38, heart rate 70, respirations are 18, he is on CPAP 100%, last recorded saturation is 100%, Intake and Output: He has had 0 recorded in. He has had 3050 out to Egan. LABORATORY DATA: Sodium 131, potassium 4.1, chloride 97, CO2 of 28, BUN 34, creatinine 1.4, glucose is 223, patient's anion gap is 6, calcium 8.4, phosphorus 2.7, albumin is 3.1. White count 8.09, hemoglobin is 7.8, hematocrit 23.8, platelet count of 290,000. PHYSICAL EXAMINATION: This is a 63-year-old white male. He is resting quietly in bed. He appears in no acute distress. Skin is warm and dry.HEENT: Normocephalic, atraumatic. Conjunctiva is pale. He has SINAI. Mucous membranes are dry. Neck is supple. Trachea midline. Unable to determine JVD due to BiPAP straps. Cardiovascular: Regular rate and rhythm. He has an S4. His lungs are clear to auscultation bilaterally with equal excursion with O2 supplement in place. Abdomen is large, obese, soft, nontender. Positive bowel sounds. Genitourinary not inspected. Extremities have 1+ lower extremity edema. He also has a brace to the left wrist. Neurological: Alert and oriented x3. ASSESSMENT AND PLAN: 1. Chronic kidney disease, stage 3. Patient's BUN and creatinine have returned to his baseline. No indications for further intervention. He has adequate urine out, we will continue to monitor. 2. Electrolytes, acid-base balance, and anemia. These are all acceptable. 3. Volume status. Patient continues on a p.o. diuretic regimen with good response. 4. Continues to require BiPAP. I would like to thank you for allowing us to follow with this patient. Dictated by JOCE Vela for Aris Durán MD Face to face encounter, data reviewed, discussed with Ramses Joseph on 12/28/18. I agree with the above assessment and plan of care. cc: JOCE Vela MD MTDD
--- NOTE | 2018-12-28 17:48 | PROGRESS NOTE ---
DATE: 12/28/2018 SUBJECTIVE: Mr. Smith was resting comfortably. He is feeling better. His the groin is much more comfortable. He feels like the swelling is going down. OBJECTIVE: Temperature 97.7 degrees, pulse 77, respirations 19, blood pressure 119/63. Pupils are equal and round. Lungs are clear in all lung hernandez. Cardiovascular exam with regular rhythm and rate without murmur or S3. Abdomen is soft. Skin is warm and dry. His scrotal area and groin swelling seems to be going down. ASSESSMENT AND PLAN: 1. Chronic kidney disease, stage 3. BUN and creatinine returned to baseline. Adequate urine output. 2. Electrolytes, acid-base, anemia. All acceptable. 3. Continue to diurese with diuretic good response. 4. Continues to require BiPAP at times, but I think overall his air and gas exchange is improved. 5. He has had obstructive uropathy, bilateral hydronephrosis. Egan catheter is helping that. 6. Morbid obesity. 7. Diabetes mellitus, type 2. Sugar is under good control. 8. He had scrotal and perineal abscess with drainage and so they continue topical care and seems to be improving. Plan is I think trying to get him to a rehabilitation [facility]. 9. Review of his current medications: He is on Zocor 40 mg a day. Cleocin 300 mg q.8 h. Xanax 0.5 mg b.i.d. Aspirin 81 mg a day. Coreg 12.5 b.i.d. Zyrtec 10 mg a day. Vitamin D3 1000 units daily. Cipro 250 mg b.i.d. Uloric 40 mg q.a.m. Lasix 80 mg daily. Hydrocodone 10 mg q.4 h. P.r.n. He gets Dilaudid 1 mg IV q.12 h. p.r.n. Insulin glargine 20 units q.a.m. Iron carbonyl 1 a day. Lactulose 30 mL t.i.d. Synthroid 50 mcg daily. Linzess 145 mg a day. Prilosec 20 mg a day. Viibryd 20 mg daily. Continue present regimen. cc: Conor Santo MD
--- NOTE | 2018-12-28 18:00 | INFECTIOUS DISEASE PROGRESS NO ---
DATE: 12/28/2018 PRESENT ILLNESS: Mr. Smith is being treated for scrotal and perineal abscesses and has undergone incision and drainage of those. There is also an oral candidiasis. MEDICATIONS: He is receiving Cipro 250 mg by mouth every 12 hours as a renally modified dose, and clindamycin 300 mg by mouth every 8 hours. He is also on nystatin swish and swallow 4 times a day. PHYSICAL EXAMINATION: Vital Signs: Temperature is 97.7 degrees, pulse rate 77, respiratory rate 19, blood pressure 119/63, O2 saturation is 100% on 3 L nasal cannula. General: This is a chronically ill-appearing, morbidly obese patient. He is sitting on the side of the bed currently in no acute distress. HEENT: Atraumatic, normocephalic. Oral mucous membranes are pink and moist. He states his mouth feels much better since he started using the swish and swallow. Conjunctivae are pale. Cardiovascular: Heart rate is regular. Respiratory: Lung sounds are clear to auscultation bilaterally. Abdomen: Soft, obese and nontender. Bowel sounds are active. The perineum and scrotal areas are more pink and less ecchymotic. The 2 incision areas of the perineum and scrotum are packed with gauze and there is some serosanguineous drainage noted. Neurologic: He is awake, alert and oriented. LABORATORY AND X-RAY: Today his white count is 8.09, hemoglobin 7.8, platelet count 290,000, creatinine is 1.4, GFR 51. No imaging reports today. ASSESSMENT AND PLAN: Mr. Smith is being treated for scrotal and perineal infection as well as oral candidiasis. His cultures have not grown anything, so for now we will continue the clindamycin and Cipro as ordered and also continue the nystatin swish and swallow for his oral candidiasis, which is improving. These plans have been discussed with and recommended by Dr. Nguyen. COMORBIDITIES: Include morbid obesity, congestive heart failure, acute on chronic kidney disease, diabetes mellitus, COPD and anemia of chronic disease. Dictated by JOCE Peterson for Dheeraj Nguyen MD cc: Dheeraj Nguyen MD [facility]
[2018-12-28] MEDS: ZOCOR PO SCH (22:27)
[2018-12-29] MEDS: DUONEB (A & A) INH SCH ×3 (03:07→11:25)
[2018-12-29] MEDS: DILAUDID IV SCH ×3 (05:01→09:55)
[2018-12-29] MEDS: CLEOCIN PO SCH ×2 (05:02→14:15)
[2018-12-29] MEDS: PRILOSEC PO SCH (06:25)
[2018-12-29] MEDS: SYNTHROID PO SCH (06:25)
[2018-12-29] MEDS: HUMULIN R SUBQ SCH ×2 (06:26→11:50)
[2018-12-29] MEDS ORDERED: INSULIN PEN NEEDLES ONE (07:29)
[2018-12-29 08:19] LABS: ALBUMIN 2.8 g/dL (3.5-5.0); CALCIUM 8.1 mg/dL (8.8-10.2); CREATININE 1.4 mg/dL (0.7-1.2); PHOSPHORUS 2.7 mg/dL (2.7-4.5); POTASSIUM 4.3 mmol/L (3.5-5.1)
[2018-12-29] MEDS: MYCOSTATIN SUSP PO SCH ×2 (09:14→14:15)
[2018-12-29] MEDS: LACTULOSE PO SCH ×3 (09:14→13:39)
[2018-12-29] MEDS: VITAMIN D PO SCH (09:15)
[2018-12-29] MEDS: VIIBRYD PO SCH (09:15)
[2018-12-29] MEDS: ICAR-C PO SCH (09:15)
[2018-12-29] MEDS: ULORIC PO SCH (09:15)
[2018-12-29] MEDS: CIPRO PO SCH (09:16)
[2018-12-29] MEDS: ASPIRIN EC PO SCH (09:17)
[2018-12-29] MEDS: LASIX PO SCH (09:17)
[2018-12-29] MEDS: COREG PO SCH (09:17)
[2018-12-29] MEDS: ZYRTEC PO SCH (09:17)
[2018-12-29] MEDS: BASAGLAR SUBQ SCH (09:18)
--- NOTE | 2018-12-29 11:24 | DISCHARGE SUMMARY ---
ADMISSION DATE: 12/07/2018 DISCHARGE DATE: 12/29/2018 CONSULTATIONS: 1. Uriah Guaman MD of Cardiology. 2. Dr. Dheeraj Nguyen with Infectious Disease. 3. Dr. Virgilio Armendariz with General Surgery. 4. Dr. Bryce Gonzalez with Urology. 5. Riley Priest MD, Hematology/Oncology. 6. Dr. Aris Durán with Nephrology. DISCHARGE DIAGNOSES: 1. Sepsis on presentation secondary to scrotal and perineal abscess. The patient is status incision and drainage at the perineum. Cultures have been negative. Followed by Urology, Infectious Disease. May discharge to [facility] on p.o. clindamycin and Ciprofloxacin. 2. Obstructive uropathy associated with bilateral hydronephrosis and dilated bladder. This was resolved with Egan catheter. Again, followed by Urology. 3. Acute on chronic renal failure. The patient is making adequate urine. He has been in a negative balance. 4. Fluid volume overload, presumably due to congestive heart failure with preserved ejection fraction. Initially, he was on IV Lasix, however, that had to be held secondary to his acute on chronic renal failure. He was given albumin to help with his diuresis, as well as his renal function, improved. 5. Morbid obesity with a body mass index of 46.5. 6. Diabetes mellitus with a presenting A1c at 7. Glucose has been well controlled on insulin regimen. 7. Epistaxis secondary to anticoagulant and antiplatelet therapy. He was evaluated by Cardiology and is on dual anti-platelet therapy, as well as anticoagulant for his atrial fibrillation. Cardiology has recommended stopping his Brilinta and continuing the patient on his aspirin alone for now and ultimately would like to bring back his Eliquis for the important benefit of thrombolytic and stroke risk reduction. 8. Atherosclerotic coronary disease. The patient has been clinically stable without angina. Continue current cardiovascular regimen. 9. Chronic atrial fibrillation. Continue beta cayden as well as aspirin and eventually back on his anticoagulant. It was stopped secondary to epistaxis. 10. Chronic obstructive pulmonary disease without exacerbation. HOSPITAL COURSE: Briefly, Mr. Smith initially presented to the ED because of shortness of breath due to fluid volume overload. He also had symptoms of sepsis and was found to have a perineal and scrotal abscess. Abscess was drained by Urology. His cultures have been negative. He was followed by Infectious Disease. He was having issues with his renal function, which they believed secondary to overuse of diuretics. He was still retaining fluid. Lasix had to be discontinued and he was given 3 doses of albumin. His creatinine has returned to his historical baseline. His electrolytes and fluid balance have overall improved. He will continue on a p.o. diuretic regimen. His prerenal state was precipitated by his significant hypoalbuminemia that was treated with IV albumin. He has been continued on appropriate antibiotic regimen followed by Dr. Dheeraj Nguyen with Infectious Disease. He will be discharged on clindamycin and Cipro. He will be discharged to [facility] with a Egan catheter. Continue to follow Urology. VITAL SIGNS: At time of discharge, temperature 97.4 degrees axillary, heart rate 70, respirations 18, blood pressure 123/57, O2 is 100% on nasal cannula. He is on CPAP at night. DISCHARGE DIET: Diabetic. DISCHARGE MEDICATIONS: 1. Aranesp 25 mcg injected q.30 days p.r.n. 2. Aspirin 81 mg p.o. daily. 3. Baclofen 10 mg p.o. t.i.d. 4. Brilinta 90 mg p.o. b.i.d. 5. Eliquis 5 mg p.o. b.i.d. 6. Humalog 3 units subcutaneously as directed. 7. NitroQuick 0.4 mg sublingual as directed p.r.n. 8. Uloric 40 mg p.o. q.a.m. 9. Vitamin D3 1000 units p.o. daily. 10. Xanax 0.5 mg p.o. p.r.n. 11. Cleocin 300 mg p.o. q.8 hours. 12. Basaglar 20 units subcutaneous q.a.m. 13. Cipro 250 mg p.o. b.i.d. 14. Coreg 12.5 mg p.o. b.i.d. 15. Icar C, 1 each p.o. daily. 16. Lactulose 30 mL p.o. t.i.d. 17. Lasix 80 mg p.o. daily. 18. [place] 10 one each p.o. q.4 hours p.r.n. 19. Synthroid 50 mcg p.o. daily. 20. Zyrtec 10 mg p.o. daily. FOLLOW-UP: Mr. Smith is being discharged to [facility]. He will continue with physical therapy. He is to take all medications as prescribed. He will follow up with Urology. He can return to the ED or call 911 for any worsening of symptoms. Dictated by JOCE Chavez for Slim Montejo MD cc: MD Bryce King MD Kirk L. Jackson, MD Reginald D. Gladish, MD Leroy F. Harris, MD I have seen and examined Mr Smith today. He is clinically stable for discharge. I have reviewed and reconciled his home medications. Mr Smith is been discharged to rehab is stable condition. I agree with the above discharge summary. Time spent fro discharge 38 minutes. MTDD
[2018-12-29 12:01] VITALS: BP 129/65
--- NOTE | 2018-12-29 14:04 | NEPHROLOGY PROGRESS NOTE ---
DATE: 12/29/2018 TIME SEEN: 0640 SUBJECTIVE: Mr. Smith is resting quietly in bed, head of the bed is elevated. He remains on his BiPAP. Denies any discomfort. OBJECTIVE: His most recent vital signs his last temperature 97.5, blood pressure 141/94, heart rate 71, respirations are 20, he is on CPAP. Last recorded saturation is 99%. He has had 480 in, 2.7 L removed per Egan catheter. LAB: Sodium 129, potassium 4.3, chloride 95, CO2 27, BUN 28, creatinine 1.4, glucose 275, his anion gap is 7, his calcium is 8.1, phosphorus 2.7, albumin is 2.8. The patient had a previous hemoglobin of 7.8 on the . PHYSICAL EXAM: This is a 63-year-old white male resting quietly in bed. He appears chronically ill no acute distress.Skin: Warm and dry. HEENT: Normocephalic, atraumatic. Conjunctiva is pale pink. He has SINAI. Mucous membranes are dry. Neck: Supple. Trachea midline, unable to determine JVD due to his BiPAP straps. Cardiovascular: Regular rate and rhythm. He has an S4. Lungs: Clear to auscultation bilateral, equal excursion on O2 supplementation. Abdomen: Large, obese, soft, positive bowel sounds. Genitourinary: Not inspected. Egan catheter is in place. Extremities: Have 1+ lower extremity edema. He has a brace to the left wrist. Neurologic: Alert and oriented x3. ASSESSMENT AND PLAN: Chronic kidney disease stage 3. Patient remains at his historical baseline, secondary to stable electrolytes and acid-base balance and anemia and his creatinine remaining at his historical baseline we will sign off at this time. We have encouraged him to follow up with his student accounts manager Dr. Warren in [place]. Like to thank you for allowing us to follow with this patient. Dictated by JOCE Vela for Aris Durán MD Face to face encounter, data reviewed, discussed with Ramses Joseph on 12/29/18. I agree with the above assessment and plan of care. cc: JOCE Vela MD [facility]
[2018-12-29] MEDS: XANAX PO PRN (14:20)
== END 2018-12-29 15:50 | DRG 853 ==
LOC: ED 17:24 → EDIPHOLD 22:55 → SUATTDRO 22:55 → 3N 12-08 10:01
PROVIDERS: ATTEND Internal Medicine
CPT/HCPCS: 36430; 71010; 71045; 74176; 80048; 80053; 80069; 81001; 82270; 82436; 82550; 82607; 82728; 82746; 82784; 82805; 82948; 83036; 83540; 83550; 83605; 83735; 83880; 84133; 84156; 84300; 84443; 84484; 84540; 85014; 85018; 85025; 85027; 85610; 85730; 86850; 86900; 86901; 86920; 87040; 87070; 87075; 87088; 87205; 88184; 88185; 93005; 93010; 93306; 94640; 94761; 94762; 96365; 96366; 96367; 96372; 96375; 96376; 97110; 97162; 97530; 99285; A9270; C8929; J0330; J1170; J1644; J1815; J1940; J1956; J2020; J2250; J3010; J3370; J7030; J7050; P9016; P9047; Q9957; S0073; S0077; XXXXX